=== PATIENT | male | born 1940 | race Caucasian/White ===

== ENCOUNTER 2024-05-24 12:46 | Outpatient (OUT) | payer MEDICARE, SELFPAY ==
--- NOTE | 2024-05-24 13:00 | CA_ITS ---
Patient Name: BELLE ONEIL MR#: [id number] : 1940 Exam Date: 05/24/2024 Ordering Doctor: MICAH BERRY ECHOCARDIOGRAM REPORT PROCEDURE: CA ECHO DOPPLER COMPLETE INDICATIONS: Aortic valve stenosis, hypertension COMPARISON: None. DESCRIPTION: COMPLETE ECHOCARDIOGRAM Real-time transthoracic echocardiography with 2D, M-mode, spectral and color flow Doppler performed. QUALITY: Technical quality was good. LEFT VENTRICLE: Normal chamber size. Mild to moderate concentric hypertrophy with proximal septal hypertrophy (sigmoid septum). Normal systolic function. LV EF: Normal left ventricular ejection fraction, (>55%). DIASTOLIC: Normal diastolic function. ATRIAL SEPTUM: Visually appears intact. LEFT ATRIUM: Mild dilatation. RIGHT ATRIUM: Normal chamber size. RIGHT VENTRICLE: Normal chamber size. Normal right ventricular systolic function. TRICUSPID VALVE: Normal mobility and thickness. No stenosis with trivial regurgitation. No evidence of pulmonary hypertension. RVSP 26 mmHg MITRAL VALVE: Normal mobility and thickness. No evidence of mitral valve stenosis. There is no mitral annular calcification. Mild mitral regurgitation. AORTIC VALVE: Normal trileaflet appearance. Mildly calcified aortic valve. Moderately diminished mobility. Doppler velocity suggests moderate aortic valve stenosis. Peak velocity 2.81 m/s, mean gradient 12 mmHg, DAVID 1.1 cm2. No aortic regurgitation. AORTIC ROOT: Aortic root is dilated (4.3 cm). The ascending aorta is mildly dilated measuring 3.8 cm. PULMONIC VALVE: Normal thickness and mobility. No stenosis. No regurgitation. PERICARDIUM: No evidence of pericardial effusion. IVC: Collapses with inspirations. PLEURA: CONCLUSION: 1. Mild to moderate concentric left ventricular hypertrophy with normal systolic function. LVEF is 55 to 60%. 2. Normal right ventricular size and systolic function. 3. Moderate aortic valve stenosis. 4. Mild mitral regurgitation. 5. Normal right-sided pressures. 6. Moderately dilated aortic root [4.3 cm] with mildly dilated ascending aorta [3.8 cm]. Adult Echocardiography Procedure Report Left Ventricle LVEDD (3.7 - 5.6 cm): 4.63 cm LVESD (2.2 - 4.0 cm): 3.38 cm LVIVS thickness (0.6 - 1.2 cm): 1.88 cm LVPW thickness (0.5 - 1.0 cm): 1.10 cm e': 0.11 m/s E - e': 7.00 LVOT Max Gradient: 1.39 mm[Hg] LVOT Area (cm2): 0.59 m/s Peak Velocity (LVOT): 0.59 m/s Mean Velocity (LVOT): 0.42 m/s LVOT Diameter 2.40 cm Left Atrium Left Atrium Systolic Dimension: 4.13 cm Mitral Valve MV E to A Ratio: 0.99 Mitral Valve A-Wave Peak Velocity: 0.76 m/s Mitral Valve E-Wave Peak Velocity: 0.76 m/s Right Ventricle Aorta AO Root Diam: 4.30 cm Ascending Ao Diam: 3.77 cm Aortic Valve AoV Area (Peak Freddy): 0.95 cm2, 1.19 cm2 AoV Area (VTI): 1.15 cm2, 1.50 cm2 Peak Velocity(Antegrade Flow): 2.23 m/s, 2.81 m/s Peak Gradient(Antegrade Flow): 19.94 mm[Hg], 31.53 mm[Hg] Mean Velocity(Antegrade Flow): 1.34 m/s, 1.42 m/s Mean Gradient(Antegrade Flow): 8.95 mm[Hg], 11.67 mm[Hg] Velocity Time Integral: 38.69 cm, 50.77 cm Tricuspid Valve Peak Velocity (Regurgitant Flow): 2.42 m/s Pulmonic Valve Mean Gradient: 1.83 mm[Hg] Mean Velocity: 0.61 m/s Peak Velocity: 0.98 m/s, 1.05 m/s Peak Gradient: 4.38 mm[Hg], 3.81 mm[Hg] Right Atrium Dictated by: Richard Stevens M.D. on 05/24/2024 at 19:27 Approved by: Richard Stevens M.D. on 05/24/2024 at 19:33
== END 2024-05-24 12:47 | disposition home or self-care (01) ==
LOC: CARD 12:49
PROVIDERS: PCP Internal Medicine; Visit Provider Nurse Practitioner
DX: I35.0 Nonrheumatic aortic (valve) stenosis (principal)
CPT/HCPCS: 93306

== ENCOUNTER 2024-12-27 07:42 | Outpatient (OUT) | payer MEDICARE, SELFPAY ==
--- OUTSIDE RECORDS SUMMARY | 2024-12-27 07:45 | XMS_ITS | CCD ---
Author Organization [facility] Care Team Providers Care Manager Metal Name Role Phone PHYSICIAN, DEFAULT Unavailable Unavailable PHYSICIAN, DEFAULT Unavailable Unavailable DO Devonte Lambert Attending Provider PAT FAROOQ Admitting Unavailable PAT FAROOQ Attending Unavailable JEWEL, DR SZYMANSKI Primary Care Unavailable PAT FAROOQ Consulting Unavailable JANETT, DR QUINONES Admitting Unavailable JANETT, DR QUINONES Attending Unavailable JEWEL, DR SZYMANSKI Primary Care Unavailable CESAR, DR CHICO Medina Consulting Unavailable JANETT, DR QUINONES Consulting Unavailable PAT FAROOQ Admitting Unavailable PAT FAROOQ Attending Unavailable JEWEL, DR SZYMANSKI Primary Care Unavailable PAT FAROOQ Consulting Unavailable DO Devonte Lambert Attending Provider [phone] NO FAMILY, PHYSICIAN Primary Care Provider Unava MD Liu Her Attending Provider [phone] FREEMNA Benito Primary Care Provider [phone] Mariza Imchalino Attending Unavailable Galindo Benito Primary Care Unavailable Liu Dawkins Admitting Unavailable Devonte Lambert Admitting Unavailable Devonte Lambert Attending Unavailable NO FAMILY, PHYSICIAN Primary Care Unavailable MICAH BERRY Attending Unavailable Galindo Benito MD Primary Care Provider [phone] Monie Prado MD Unavailable JUNE BACON Attending Unavailable Medications Current Medications Medication Drug Class(es) Dates Sig (Normalized) Sig (Original) Glucos Sul 9kya-Dke-Tpblt-C-M n (Glucosamine Chondroitin) 550-30-1 mg Capsule (1 source) Start: 02-07-2023 take 1 capsule by mouth once daily Glucos Sul 6yuh-Oju-Jumoh-C-M n (Glucosamine Chondroitin) 550-30-1 mg Capsule Active 1 CAP PO Daily February 07, 2023 12:00am glucosamine sulfate 500 mg oral capsule (3 sources) Glucosamine 500 MG capsule 1 (one) time each day at the same time. Active lisinopril 5 mg oral tablet (4 sources) Angiotensin Converting Enzyme Inhibitor Start: 05-15-2023 lisinopril 5 MG tablet Take 5 mg by mouth. 05/15/2023 Active Start: 02-07-2023 take 5 mg by mouth once daily Lisinopril Active 5 MG PO Daily February 07, 2023 12:00am Multivitamin (One A Day) Tablet (1 source) Start: 02-07-2023 take 1 tablet by mouth once daily Multivitamin (One A Day) Tablet Active 1 TAB PO Daily February 07, 2023 12:00am Problems Active Problems Problem Classification Problem Date Documented Da te Episodic/Chronic Anal and rectal conditions (1 source) Other specified diseases of anus and rectum; Translations: [Other specified diseases of anus and rectum] Onset: 12-14-2022 Episodic Aortic; peripheral; and visceral artery aneurysms (9 sources) Abdominal aortic aneurysm, without rupture; Translations: [Aneurysm of thoracic aorta] Onset: 05-18-2022 Chronic Calculus of urinary tract (5 sources) Uric acid urolithiasis; Translations: [Urinary calculus, unspecified] Onset: 07-24-2023 07-24-2023 Episodic Diabetes mellitus without complication (2 sources) Type 2 diabetes mellitus without complication; Translations: [Type 2 diabetes mellitus without complications] 12-04-2024 Chronic Disorders of lipid metabolism (11 sources) Hyperlipidemia, unspecified; Translations: [Hyperlipidemia] Onset: 11-15-2022 07-24-2023 Chronic Essential hypertension (8 sources) Essential (primary) hypertension; Translations: [Essential hypertension] Onset: 11-15-2022 Chronic Heart valve disorders (4 sources) Nonrheumatic aortic (valve) stenosis; Translations: [Nonrheumatic mitral (valve) insufficiency] Onset: 05-19-2022 Chronic Heart valve disorders (5 sources) Mid-systolic murmur; Translations: [Cardiac murmur, unspecified] Onset: 07-24-2023 07-24-2023 Episodic Hyperplasia of prostate (5 sources) Benign prostatic hypertrophy without outflow obstruction; Translations: [Benign prostatic hyperplasia without lower urinary tract symptoms] Onset: 07-24-2023 07-24-2023 Chronic Other and unspecified benign neoplasm (1 source) Personal history of colonic polyps; Translations: [Personal history of colonic polyps] Onset: 02-07-2023 Episodic Other and unspecified benign neoplasm (1 source) Benign neoplasm of transverse colon; Translations: [Benign neoplasm of transverse colon] Onset: 02-07-2023 Episodic Other screening for suspected conditions (not mental disorders or infectious disease) (2 sources) Patient encounter status; Translations: [Encounter for screening for malignant neoplasm of prostate] 12-04-2024 Episodic Unclassified (3 sources) THORAC AORTC ANEURYSM W/O RUPTR UNS; Translations: [THORAC AORTC ANEURYSM W/O RUPTR UNS] Onset: 12-15-2022 Unclassified (1 source) Aneurysm of the ascending aorta, without rupture; Translations: [Aneurysm of the ascending aorta, without rupture] Onset: 05-15-2023 Past or Other Problems Problem Classification Problem Date Documented Da te Episodic/Chronic Diabetes mellitus without complication (3 sources) Impaired glucose tolerance; Translations: [Impaired glucose tolerance (oral)] Onset: 07-24-2023 07-24-2023 Episodic Mood disorders (3 sources) Mood disorders Onset: 07-26-2023 07-26-2023 Unclassified (1 source) THORAC AORTC ANEURYSM W/O RUPTR UNS; Translations: [THORAC AORTC ANEURYSM W/O RUPTR UNS] Onset: 12-05-2022 Unclassified (1 source) Aneurysm of the ascending aorta, without rupture; Translations: [Aneurysm of the ascending aorta, without rupture] Onset: 06-19-2024 Results Test Name Value Interpretation Reference Range Facility ALBUMIN, RANDOM URINE W/CREA TININEon 12-05-2024 ALBUMIN, URINE 0.9 mg/dL Normal See Note: [facility] Comment on above: Result Comment: Refe rence Range: Reference Range Not established Performed By: #### 1 759, 496, 5363, 7600, 3717, 66174 #### [facility] [address], [address] [place] [id number] Air Conditioning Unit Assembler: Eugene Chandra MD ALBUMIN/CREATININE RATIO, RANDOM URINE 6 mg/g creat Normal <30 [facility] Comment on above: Result Comment: The ADA defines abnormalities in albumin excretion as follows: Albuminuria Category Result (mg/g creatinine) Normal to Mildly increased <30 Moderately increased 30-299 Severely increased > OR = 300 The ADA recommends that at least two of three specimens collected within a 3-6 month period be abnormal before considering a patient to be within a diagnostic category. Performed By: #### 1 759, 496, 5363, 7600, 6517, 95130 #### [facility] [place] [address] [employer] Condition[employer] Unit Assembler: Eugene Chandra MD Creatinine (U) [Mass/Vol] 153 mg/dL Normal 20-320 [facility] Comment on above: Performed By: #### 1 759, 496, 5363, 7600, 6517, 74345 #### [facility] [place] [address] [employer] Condition[employer] Unit Assembler: Eugene Chandra MD CBC (H/H, RBC, INDICES, WBC, PLT)on 12-05-2024 Erythrocyte distribution width (RBC) [Ratio] 12.1 % Normal 11.0-15.0 [facility] Comment on above: Performed By: #### 1 759, 496, 5363, 7600, 6517, 71181 #### [facility] [place] [address] [employer] Condition[employer] Unit Assembler: Eugene Chandra MD Hematocrit (Bld) [Volume fraction] 41.1 % Normal 38.5-50.0 [facility] Comment on above: Performed By: #### 1 759, 496, 5363, 7600, 6517, 84511 #### [facility] [place] [address] [employer] Conditioning Unit Assembler: Eugene Chandra MD Hemoglobin (Bld) [Mass/Vol] 13.9 g/dL Normal 13.2-17.1 [facility] Comment on above: Performed By: #### 1 759, 496, 5363, 7600, 6517, 40407 #### [facility] [place] [address] [employer] Conditioning Unit Assembler: Eugene Chandra MD MCH (RBC) [Entitic mass] 32.3 pg Normal 27.0-33.0 [facility] Comment on above: Performed By: #### 1 759, 496, 5363, 7600, 6517, 54318 #### [facility] [place] [address] [employer] Conditioning Unit Assembler: Eugene Chandra MD MCHC (RBC) [Mass/Vol] 33.8 g/dL Normal 32.0-36.0 [facility] Comment on above: Result Comment: For adults, a slight decrease in the calculated MCHC value (in the range of 30 to 32 g/dL) is most likely not clinically significant; however, it should be interpreted with caution in correlation with other red cell parameters and the patient's clinical condition. Performed By: #### 1 759, 496, 5363, 7600, 6517, 31819 #### [facility] [place] [address] [employer] Condition[employer] Unit Assembler: Eugene Chandra MD MCV (RBC) [Entitic vol] 95.4 fL Normal 80.0-100.0 [facility] Comment on above: Performed By: #### 1 759, 496, 5363, 7600, 6517, 30091 #### [facility] [place] [address] [employer] Conditioning Unit Assembler: Eugene Chandra MD Platelet mean volume (Bld) [Entitic vol] 10.4 fL Normal 7.5-12.5 [facility] Comment on above: Performed By: #### 1 759, 496, 5363, 7600, 6517, 54994 #### [facility] [place] [address] [employer] Conditioning Unit Assembler: Eugene Chandra MD Platelets (Bld) [#/Vol] 239 10*3/uL Normal 140-400 [facility] Comment on above: Performed By: #### 1 759, 496, 5363, 7600, 6517, 50807 #### [facility] [address] [place] [address] Air Conditioning Unit Assembler: Eugene Chandra MD RBC (Bld) [#/Vol] 4.31 10*6/uL Normal 4.20-5.80 [facility] Comment on above: Performed By: #### 1 759, 496, 5363, 7600, 6517, 82510 #### [facility] of [place] [address] [employer] Conditioning Unit Assembler: Eugene Chandra MD WBC (Bld) [#/Vol] 8.1 10*3/uL Normal 3.8-10.8 [facility] Comment on above: Performed By: #### 1 759, 496, 5363, 7600, 6517, 33074 #### [facility] of [place] [address] [employer] Conditioning Unit Assembler: Eugene Chandra MD [facility]AB[facility] 12-05-2024 Albumin [Mass/Vol] 4.3 g/dL Normal 3.6-5.1 [facility] Comment on above: Performed By: #### 1 759, 496, 5363, 7600, 6517, 98760 #### [facility] of [place] [address] [employer] Conditioning Unit Assembler: Eugene Chandra MD Albumin/Globulin [Mass ratio] 1.8 {ratio} Normal 1.0-2.5 [facility] Comment on above: Performed By: #### 1 759, 496, 5363, 7600, 6517, 64470 #### [facility] of [place] [address] Air Conditioning Unit Assembler: Eugene Chnadra MD ALP [Catalytic activity/Vol] 51 U/L Normal 35-144 [facility] Comment on above: Performed By: #### 1 759, 496, 5363, 7600, 6517, 90040 #### [facility] of [place] [address] [employer] Conditioning Unit Assembler: Eugene Chandra MD ALT [Catalytic activity/Vol] 23 U/L Normal 9-46 [facility] Comment on above: Performed By: #### 1 759, 496, 5363, 7600, 6517, 45419 #### [facility] of [address], [address] [place] [address] Air Conditioning Unit Assembler: Eugene Chandra MD AST [Catalytic activity/Vol] 20 U/L Normal 10-35 [facility] Comment on above: Performed By: #### 1 759, 496, 5363, 7600, 6517, 04993 #### [facility] of [address], [address] [place] [address] Air Conditioning Unit Assembler: Eugene Chandra MD Bilirubin [Mass/Vol] 0.6 mg/dL Normal 0.2-1.2 [facility] Comment on above: Performed By: #### 1 759, 496, 5363, 7600, 6517, 85093 #### [facility] of [address], [address] [place] [address] Air Conditioning Unit Assembler: Eugene Chandra MD BUN/CREATININE RATIO SEE NOTE: Normal 6-22 [facility] Comment on above: Result Comment: Not Reported: BUN and Creatinine are within reference range. Performed By: #### 1 759, 496, 5363, 7600, 6517, 17133 #### [facility] of [address], [address] [place] [address] Air Conditioning Unit Assembler: Eugene Chandra MD Calcium [Mass/Vol] 9.3 mg/dL Normal 8.6-10.3 [facility] Comment on above: Performed By: #### 1 759, 496, 5363, 7600, 6517, 49372 #### [facility] of [place] [address] Air Conditioning Unit Assembler: Eugene Chandra MD Chloride [Moles/Vol] 106 mmol/L Normal 98-110 [facility] Comment on above: Performed By: #### 1 759, 496, 5363, 7600, 6517, 64780 #### [facility] of [address], [address] [place] [address] Air Conditioning Unit Assembler: Eugene Chandra MD CO2 [Moles/Vol] 27 mmol/L Normal 20-32 [facility] Comment on above: Performed By: #### 1 759, 496, 5363, 7600, 6517, 50334 #### [facility] [address], [address] [place] [address] Air Conditioning Unit Assembler: Eugene Chandra MD Creatinine [Mass/Vol] 0.92 mg/dL Normal 0.70-1.22 [facility] Comment on above: Performed By: #### 1 759, 496, 5363, 7600, 6517, 96608 #### [facility] [place] [address] Air Conditioning Unit Assembler: Eugene Chandra MD GFR/1.73 sq M.predicted among non-blacks MDRD (S/P/Bld) [Vol rate/Area] 83 mL/min/{1.73_m2} Normal > OR = 60 [facility] Comment on above: Performed By: #### 1 759, 496, 5363, 7600, 6517, 50140 #### [facility] [place] [address] Air Conditioning Unit Assembler: Eugene Chandra MD Globulin (S) [Mass/Vol] 2.4 g/dL Normal 1.9-3.7 [facility] Comment on above: Performed By: #### 1 759, 496, 5363, 7600, 6517, 05975 #### [facility] [place] [address] [employer] Conditioning Unit Assembler: Eugene Chandra MD Glucose [Mass/Vol] 134 mg/dL High 65-99 [facility] Comment on above: Result Comment: Fasting reference interval For someone without known diabetes, a glucose value >125 mg/dL indicates that they may have diabetes and this should be confirmed with a follow-up test. Performed By: #### 1 759, 496, 5363, 7600, 6517, 96969 #### [facility] [place] [address] Air Conditioning Unit Assembler: Eugene Chandra MD Potassium [Moles/Vol] 4.3 mmol/L Normal 3.5-5.3 [facility] Comment on above: Performed By: #### 1 759, 496, 5363, 7600, 6517, 35502 #### [facility] [address], [address] [place] [address] Air Conditioning Unit Assembler: Eugene Chandra MD Protein [Mass/Vol] 6.7 g/dL Normal 6.1-8.1 [facility] Comment on above: Performed By: #### 1 759, 496, 5363, 7600, 6517, 37489 #### [facility] [place] [address] Air Conditioning Unit Assembler: Eugene Chandra MD Sodium [Moles/Vol] 140 mmol/L Normal 135-146 [facility] Comment on above: Performed By: #### 1 759, 496, 5363, 7600, 6517, 31540 #### [facility] [place] [address] Air Conditioning Unit Assembler: Eugene Chandra MD Urea nitrogen [Mass/Vol] 17 mg/dL Normal 7-25 [facility] Comment on above: Performed By: #### 1 759, 496, 5363, 7600, 6517, 79685 #### [facility] [place] [address] Air Conditioning Unit Assembler: Eugene Chandra MD HEMOGLOBIN A1con 12-05-2024 HEMOGLOBIN A1c 6.7 % of total Hgb High <5.7 [facility] Comment on above: Result Comment: For someone without known diabetes, a hemoglobin A1c value of 6.5% or greater indicates that they may have diabetes and this should be confirmed with a follow-up test. For someone with known diabetes, a value <7% indicates that their diabetes is well controlled and a value greater than or equal to 7% indicates suboptimal control. A1c targets should be individualized based on duration of diabetes, age, comorbid conditions, and other considerations. Currently, no consensus exists regarding use of hemoglobin A1c for diagnosis of diabetes for children. Performed By: #### 1 759, 496, 5363, 7600, 6517, 50124 #### [facility] [address], [address] [place] [address] Air Conditioning Unit Assembler: Eugene Chandra MD LIPID PANEL, [facility] 11-10 Cholesterol [Mass/Vol] 201 mg/dL High <200 [facility] Comment on above: Order Comment: FASTI NG:YES FASTING: YES Performed By: #### 1 759, 496, 5363, 7600, 6517, 97793 #### [facility] [address], [address] [place] [address] Air Conditioning Unit Assembler: Eugene Chandra MD Cholesterol in HDL [Mass/Vol] 43 mg/dL Normal > OR = 40 [facility] Comment on above: Order Comment: FASTI NG:YES FASTING: YES Performed By: #### 1 759, 496, 5363, 7600, 6517, 08011 #### [facility] [address], [address] [place] [address] Air Conditioning Unit Assembler: Eugene Chandra MD Cholesterol in LDL [Mass/Vol] 134 mg/dL High [facility] Comment on above: Order Comment: FASTI NG:YES FASTING: YES Result Comment: Refe rence range: <100 Desirable range <100 mg/dL for primary prevention; <70 mg/dL for patients with CHD or diabetic patients with > or = 2 CHD risk factors. LDL-C is now calculated using the Keanu calculation, which is a validated novel method providing better accuracy than the Friedewald equation in the estimation of LDL-C. Baltazar TORO et al. TUNG. 2013;310(19): 2398-0577 (http://education.[employer]ód[employer].Soundvamp/faq/ULE680) Performed By: #### 1 759, 496, 5363, 7600, 6517, 77527 #### [facility] [address], [address] [place] [address] Air Conditioning Unit Assembler: Eugene Chandra MD Cholesterol.total/ Cholesterol in HDL [Mass ratio] 4.7 {ratio} Normal <5.0 [facility] Comment on above: Order Comment: FASTI NG:YES FASTING: YES Performed By: #### 1 759, 496, 5363, 7600, 6517, 07436 #### [facility] [address], [address] [place] [address] Air Conditioning Unit Assembler: Eugene Chandra MD NON HDL CHOLESTEROL 158 mg/dL (calc) High <130 [facility] Comment on above: Order Comment: FASTI NG:YES FASTING: YES Result Comment: For patients with diabetes plus 1 major ASCVD risk factor, treating to a non-HDL-C goal of <100 mg/dL (LDL-C of <70 mg/dL) is considered a therapeutic option. Performed By: #### 1 759, 496, 5363, 7600, 6517, 30592 #### [facility] [address], [address] [place] [address] Air Conditioning Unit Assembler: Eugene Chandra MD Triglyceride [Mass/Vol] 128 mg/dL Normal <150 [facility] Comment on above: Order Comment: FASTI NG:YES FASTING: YES Performed By: #### 1 759, 496, 5363, 7600, 6517, 44189 #### [facility] [address], [address] [place] [address] Air Conditioning Unit Assembler: Eugene Chandra MD PSA, TOTALon 12-05-2024 PSA, TOTAL 0.61 ng/mL Normal < OR = 4.00 [facility] Comment on above: Result Comment: The total PSA value from this assay system is standardized against the WHO standard. The test result will be approximately 20% lower when compared to the equimolar-standardized total PSA ([facility] [place]). Comparison of serial PSA results should be interpreted with this fact in mind. This test was performed using the Siemens chemiluminescent method. Values obtained from different assay methods cannot be used interchangeably. PSA levels, regardless of value, should not be interpreted as absolute evidence of the presence or absence of disease. Performed By: #### 1 759, 496, 5363, 7600, 6517, 42360 #### [facility] [place] [address] Air Conditioning Unit Assembler: Eugene Chandra MD Office Visiton 06-19-2024 Follow-up visit [id number] Cameron Locke 1940 M Date Provider Department Center 06/19/2024 MICAH LOWE INEZ Vuong Family History Problem Relation Age of Onset Kidney disease Mother Hyperlipidemia Father Aneurysm Father Coronary artery disease Sister Coronary artery disease Brother Family Status - Relation Status Age at Mother Father Sister Brother Level of Service:06889 AR OFFICE/OUTPATIENT ESTABLISHED LOW MDM 20 MIN Normal [facility] Messi 02-07-2023 L --- Specimen: [id number] Received: 02/07/23 Status: JOE Chan Num: [id number] Spec Type: Surgical Subm Dr: Liu Dawkins MD Tissues: A Small Intestine - Biopsy/Polyp (HEPATIC FLEXURE POLYP) Procedures: MANNY/Todd Wilhelm/Prasanth L4 Age/ Patient Sex Location Account Attending Physician Giuseppe Locke 82/M [id number] Liu Dawkins MD SPEC NUM: [id number] RECD: 02/07/23 STATUS: JOE CHAN NUM: [id number] DAMION: 02/07/23 DR: Liu Dawkins MD ENTERED: 02/07/[address] [facility] [address]: NENITA TYPE: Surgical DEPT: S ORDERED: HE/2, Gross/Micro L4 ORDERED: HE/2, Gross/Micro L4 Pathological Diagnosis Colon, hepatic flexure, polyp, biopsy: - Tubular adenoma. - Fragments of sessile serrated adenoma. Clinical Information Hepatic flexure polyp Gross Description Received in formalin labeled with the patient's name, number and hepatic flexure polyp are multiple fragments of soft morin tissue and fecal material measuring 2.0 x 0.7 x 0.2 cm in aggregate. Entirely submitted in one cassette labeled A1. Microscopic Description Two glass slides with H E stained material have been examined. The microscopic findings support the above pathologic diagnosis. CPT Codes 42650 Specimen: [id number] Received: 02/07/23 Status: JOE Rocio Num: [id number] Spec Type: Surgical Subm Dr: Liu Dawkins MD Tissues: A Small Intestine - Biopsy/Polyp (HEPATIC FLEXURE POLYP) Procedures: MANNY/Melonie Gross/Micro L4 Patient: Giuseppe Locke [id number] (Continued) Signed (signature on file) Joleen Dorsey MD 02/08/23 1029 [facility] Messi 12-14-2022 L --- Specimen: [id number] Received: 12/14/22-125 Status: JOE Chan Num: [id number] Spec Type: Surgical Subm Dr: Devonte Lambert DO Tissues: A Small Intestine - Biopsy/Polyp (POLYP HEPATIC FLEXURE) Procedures: Melonie Gross/Micro L4 Age/ Patient Sex Location Account Attending Physician Giuseppe Locke/[facility] [id number] Devonte Lambert DO SPEC NUM: [id number] RECD: 12/14/22 STATUS: JOE CHAN NUM: [id number] DAMION: 12/14/22- [facility] DR: Devonte Lambert DO ENTERED: 12/14/[address]: Markel [facility] SPEC TYPE: Surgical DEPT: S ORDERED: HE/2, Gross/Micro L4 ORDERED: HE/2, Gross/Micro L4 Pathological Diagnosis Colon, hepatic flexure, polyp, polypectomy: - Hyperplastic polyp. Clinical Information Rectal pain Gross Description Received in formalin labeled with the patient's name, number and polyp hepatic flexure are two fragments of soft morin tissue averaging 0.3 cm. Entirely submitted in one cassette labeled A1. Microscopic Description Two glass slides with H E stained material have been examined. The microscopic findings support the above pathologic diagnosis. CPT Codes 56477 Specimen: [id number] Received: 12/14/22 Status: JOE Rocio Num: [id number] Spec Type: Surgical Subm Dr: Devonte Lambert DO Tissues: A Small Intestine - Biopsy/Polyp (POLYP HEPATIC FLEXURE) Procedures: MANNY/Todd Wilhelm/Prasanth L4 Patient: Giuseppe Locke [id number] (Continued) Signed (signature on file) Joaquim Brooks MD 12/19/22916 [facility] ECHOCARDIO M/2D COMPLETEon 0 12-05-2022 ECHOCARDIO M/2D COMPLETE Patient: GIUSEPPE LOCKE Exam Date: 12/05/2022 : 1940 Gender:M Ordering : PAT FAROOQ [facility] Admission #: [id number] Family : Order #: [id number] CLICK HERE TO VIEW EXAM ECHOCARDIOGRAM REPORT PROCEDURE: CARDIO PULMONARY ECHOCARDIO M/2D COMP INDICATIONS: Thoracic aortic aneurym without rupture COMPARISON: None. DESCRIPTION: COMPLETE ECHOCARDIOGRAM Real-time transthoracic echocardiography with 2D, M-mode, spectral and color flow Doppler performed. QUALITY: Technical quality was good. LEFT VENTRICLE: Normal chamber size. Moderate concentric left ventricular hypertrophy. Global left ventricular systolic function is normal. LV EF: Calculated left ventricular ejection fraction is 62% DIASTOLIC: ATRIAL SEPTUM: LEFT ATRIUM: Mild dilatation. RIGHT ATRIUM: Normal chamber size. RIGHT VENTRICLE: Normal chamber size. Normal right ventricular systolic function. TRICUSPID VALVE: Normal mobility and thickness. No stenosis with trivial regurgitation. No evidence of pulmonary hypertension. RVSP is 25 mmHg. MITRAL VALVE: Normal mobility and thickness. No mitral valve prolapse. No evidence of mitral valve stenosis. There is no mitral annular calcification. Mild mitral regurgitation. AORTIC VALVE: Normal trileaflet appearance. Mildly calcified aortic valve. Mildly diminished mobility. Doppler velocity suggests mild aortic valve stenosis. DVI 0.4, DAVID 1.4 cm2, mean gradient 8 mmHg. Trivial aortic regurgitation. AORTIC ROOT: The aortic root is moderate dilated and measures 4.2 cm, the ascending aorta is mildly dilated and measures 4.0 cm, the aortic arch measures 3.2 cm. PULMONIC VALVE: Normal thickness and mobility. No stenosis. Trivial regurgitation. PERICARDIUM: No evidence of pericardial effusion. IVC: Collapses with inspirations. Normal size. PLEURA: CONCLUSION: 1. Moderate concentric left regular hypertrophy with normal global systolic function. LVEF is 60 to 65%. 2. Normal right ventricular size and systolic function. 3. Mild aortic valve stenosis. 4. Normal right-sided pressures. 5. Moderately dilated aortic root measuring 4.2 cm. The ascending aorta is mildly dilated measuring 4.0 cm. Adult Echocardiography Procedure Report Left Ventricle LVEDD (3.7 - 5.6 cm): 4.90 cm LVESD (2.2 - 4.0 cm): 3.54 cm LVIVS thickness (0.6 - 1.2 cm): 1.50 cm LVPW thickness (0.5 - 1.0 cm): 1.37 cm e': 0.09 m/s E - e': 8.21 LVOT Max Gradient: 1.96 mm[Hg], 2.15 mm[Hg] Peak Velocity (LVOT): 0.70 m/s, 0.73 m/s Mean Velocity (LVOT): 0.50 m/s, 0.59 m/s LVOT Diameter 2.19 cm Left Ventricular Ejection Fraction: 60-65% Left Atrium LA Volume Index (2D A2C): 70.73 ml, 70.73 ml Left Atrium Systolic Dimension: 4.30 cm Mitral Valve MV E to A Ratio: 1.07 Mitral Valve A-Wave Peak Velocity: 0.67 m/s Mitral Valve E-Wave Peak Velocity: 0.72 m/s Right Ventricle RV Internal Diastolic Dimension: 4.00 cm Aorta AO Root Diam: 4.19 cm, 4.20 cm Ascending Ao Diam: 3.96 cm Aortic Valve AoV Area (Peak Freddy): 1.35 cm2, 1.32 cm2 AoV Area (VTI): 1.45 cm2, 1.43 cm2 Peak Velocity(Antegrade Flow): 2.00 m/s Peak Gradient(Antegrade Flow): 15.94 mm[Hg] Mean Velocity(Antegrade Flow): 1.36 m/s Mean Gradient(Antegrade Flow): 8.44 mm[Hg] Velocity Time Integral: 38.80 cm Tricuspid Valve Peak Velocity (Regurgitant Flow): 2.35 m/s, 2.11 m/s, 2.19 m/s Peak Velocity: 0.70 m/s Pulmonic Valve Mean Gradient: 2.11 mm[Hg], 2.45 mm[Hg] Mean Velocity: 0.67 m/s, 0.72 m/s Peak Velocity: 1.02 m/s, 1.09 m/s Peak Gradient: 4.13 mm[Hg], 4.74 mm[Hg] Right Atrium Dictated by: Joni Rowland M.D. on 12/15/2022 at 09:00 Approved by: Joni Rowland M.D. on 12/15/2022 at 09:08 [facility] CBC AUTO DIFFon 11-08-2022 BASO # 0.1 103/ul Normal 0.0-0.1 [facility] Comment on above: Performed By: #### C BC #### [facility] [address] [place] [address] Dr. Carlton Mendez Basophils/100 WBC (Bld) 0.9 % Normal 0.2-2.0 [facility] Comment on above: Performed By: #### C BC #### [facility] [address] [place] [address] Dr. Carlton Mendez EO # 0.7 103/ul Normal 0.0-0.7 [facility] Comment on above: Performed By: #### C BC #### [facility] [address] [place] [address] Dr. Carlton Mendez Eosinophils/100 WBC (Bld) 7.3 % Critically high 0.9-7.0 [facility] Comment on above: Performed By: #### C BC #### [facility] [address] [place] [address] Dr. Carlton Mendez Erythrocyte distribution width (RBC) [Ratio] 12.7 % Normal 11.0-15.0 [facility] Comment on above: Performed By: #### C BC #### [facility] [address] [place] [address] Dr. Carlton Mendez Hematocrit (Bld) [Volume fraction] 41.2 % Critically low 42.0-54.0 [facility] Comment on above: Performed By: #### C BC #### [facility] [address] [place] [address] Dr. Carlton Mendez Hemoglobin (Bld) [Mass/Vol] 13.9 g/dL Critically low 14.0-18.0 [facility] Comment on above: Performed By: #### C BC #### [facility] [address] [place] [address] Dr. Carlton Mendez IG # 0.05 10e3/ul Critically high 0.00-0.03 [facility] Comment on above: Performed By: #### C BC #### [facility] [address] [place] [address] Dr. Carlton Mendez IG % 0.5 % Normal 0.0-0.5 [facility] Comment on above: Performed By: #### C BC #### [facility] [address] [place] [address] Dr. Carlton Mendez LYMPH # 4.9 103/ul Critically high 1.2-3.8 [facility] Comment on above: Performed By: #### C BC #### [facility] [address] [place] [address] Dr. Carlton Mendez Lymphocytes/100 WBC (Bld) 49.8 % Normal 20.5-60.0 [facility] Comment on above: Performed By: #### C BC #### [facility] [address] [place] [address] Dr. Carlton Mendez MANUAL DIFF REQ NO Normal [facility] Comment on above: Performed By: #### C BC #### [facility] [address] [place] [address] Dr. Carlton Mendez MCH (RBC) [Entitic mass] 31.8 pg Normal 25.9-34.0 [facility] Comment on above: Performed By: #### C BC #### [facility] [address] [place] [address] Dr. Carlton Mendez MCHC (RBC) [Mass/Vol] 33.7 g/dL Normal 29.9-35.2 [facility] Comment on above: Performed By: #### C BC #### [facility] [address] [place] [address] Dr. Carlton Mendez MCV (RBC) [Entitic vol] 94.3 fL Critically high 80.0-94.0 [facility] Comment on above: Performed By: #### C BC #### [facility] [address] [place] [address] Dr. Carlton Mendez MONO # 0.9 103/ul Critically high 0.3-0.8 [facility] Comment on above: Performed By: #### C BC #### [facility] [address] [place] [address] Dr. Carlton Mendez Monocytes/100 WBC (Bld) 8.8 % Normal 1.7-12.0 [facility] Comment on above: Performed By: #### C BC #### [facility] [address] [place] [address] Dr. Carlton Mendez NEUT # 3.2 103/ul Normal 1.4-6.5 [facility] Comment on above: Performed By: #### C BC #### [facility] [address] [place] [address] Dr. Carlton Mendez Neutrophils/100 WBC (Bld) 32.7 % Critically low 43.0-75.0 [facility] Comment on above: Performed By: #### C BC #### [facility] [address] [place] [address] Dr. Carlton Mendez Platelet mean volume (Bld) [Entitic vol] 9.5 fL Normal 9.5-13.5 [facility] Comment on above: Performed By: #### C BC #### [facility] [address] [place] [address] Dr. Carlton Mendez PLT 233 103/ul Normal 150-450 [facility] Comment on above: Performed By: #### C BC #### [facility] [address] [place] [address] Dr. Carlton Mendez RBC 4.37 106/ul Critically low 4.70-6.10 [facility] Comment on above: Performed By: #### C BC #### [facility] [address] [place] [address] Dr. Carlton Mendez WBC 9.9 103/ul Normal 4.0-11.0 [facility] Comment on above: Performed By: #### C BC #### [facility] [address] [place] [address] Dr. Carlton Mendez LIPID PROFILEon 11-08-2022 CHOL-HDL RATIO NORM SEE BELOW Normal [facility] Comment on above: Result Comment: 3.3 - 4.4 LOW RISK 4.4 - 7.1 AVERAGE RISK 7.1 - 11.0 MODERATE RISK >11.0 HIGH RISK Performed By: #### C MP, LIPID #### [facility] [address] [address] [address] Carlton Mendez Cholesterol [Mass/Vol] 175 mg/dL Normal <=200 [facility] Comment on above: Performed By: #### C MP, LIPID #### [facility] [address] [address] [address] Carlton Mendez Cholesterol in HDL [Mass/Vol] 36 mg/dL Critically low 40-60 [facility] Comment on above: Performed By: #### C MP, LIPID #### [facility] [address] [address] [address] Carlton Mendez Cholesterol in LDL [Mass/Vol] 111.8 mg/dL Normal [facility] Comment on above: Performed By: #### C MP, LIPID #### [facility] [address] [address] [address] Carlton Mendez Cholesterol.total/ Cholesterol in HDL [Mass ratio] 4.9 {ratio} Normal [facility] Comment on above: Performed By: #### C MP, LIPID #### [facility] [address] [place] [address] Dr. Carlton Mendez HDL NORMAL > or = 60 mg/dl - LO W CARDIOVASCULAR RISK <40 mg/dl - HIGH CARDIOVASCULAR RISK Normal [facility] Comment on above: Performed By: #### C MP, LIPID #### [facility] [address] [address] [address] Carlton Mendez LDL CALC NORMAL SEE BELOW Normal [facility] Comment on above: Result Comment: <100 mg/dl OPTIMAL 100 - 129 mg/dl NEAR OR ABOVE OPTIMAL 130 - 159 mg/dl BORDERLINE HIGH 160 - 189 mg/dl HIGH >190 mg/dl VERY HIGH Performed By: #### C MP, LIPID #### [facility] [address] [address] [address] Carlton Mendez Triglyceride [Mass/Vol] 136 mg/dL Normal <=150 [facility] Comment on above: Performed By: #### C MP, LIPID #### [facility] [address] [address] [address] Carlton Mendez VLDL CALC 27.2 mg/dL Normal [facility] Comment on above: Performed By: #### C MP, LIPID #### [facility] [address] [address] [address] Carlton Mendez PROF 14(COMP METB)on 023 Albumin [Mass/Vol] 3.6 g/dL Normal 3.4-5.[address] [facility] Comment on above: Performed By: #### C MP, LIPID #### [facility] [address] [address] [address] Carlton Mendez Albumin/Globulin [Mass ratio] 0.9 {ratio} Normal [facility] Comment on above: Performed By: #### C MP, LIPID #### [facility] [address] [place] [address] Dr. Carlton Mendez ALP [Catalytic activity/Vol] 59 U/L Normal 46-116 [facility] Comment on above: Performed By: #### C MP, LIPID #### [facility] [address] [place] [address] Dr. Carlton Mendez ALT [Catalytic activity/Vol] 34 U/L Normal 16-63 [facility] Comment on above: Performed By: #### C MP, LIPID #### [facility] [address] [place] [address] Dr. Carlton Mendez Anion gap [Moles/Vol] 11.6 mmol/L Normal [facility] Comment on above: Performed By: #### C MP, LIPID #### [facility] [address] [place] [address] Dr. Carlton Mendez AST [Catalytic activity/Vol] 24 U/L Normal 15-37 [facility] Comment on above: Performed By: #### C MP, LIPID #### [facility] [address] [place] [address] Dr. Carlton Mendez Bilirubin [Mass/Vol] 0.4 mg/dL Normal 0.2-1.0 [facility] Comment on above: Performed By: #### C MP, LIPID #### [facility] [address] [place] [address] Dr. Carlton Mendez Calcium [Mass/Vol] 8.9 mg/dL Normal 8.5-10.[address] [facility] Comment on above: Performed By: #### C MP, LIPID #### [facility] [address] [address] [address] Carlton Mendez Chloride [Moles/Vol] 104 mmol/L Normal 98-107 [facility] Comment on above: Performed By: #### C MP, LIPID #### [facility] [address] [address] [address] Carlton Mendez CO2 [Moles/Vol] 29.6 mmol/L Normal 21.0-32.0 [facility] Comment on above: Performed By: #### C MP, LIPID #### [facility] [address] [address] [address] Carlton Mendez Creatinine [Mass/Vol] 0.95 mg/dL Normal 0.70-1.30 [facility] Comment on above: Performed By: #### C MP, LIPID #### [facility] [address] [place] [address] Dr. Carlton Mendez EGFR-AF ITALIAN >60 Normal >=60 [facility] Comment on above: Performed By: #### C MP, LIPID #### [facility] [address] [address] [address] Carlton Mendez EGFR-NON AF ITALIAN >60 Normal >=60 [facility] Comment on above: Performed By: #### C MP, LIPID #### [facility] [address] [address] [address] Carlton Mendez Globulin (S) [Mass/Vol] 4.0 g/dL Normal [facility] Comment on above: Performed By: #### C MP, LIPID #### [facility] [address] [address] [address] Carlton Mendez Glucose [Mass/Vol] 146 mg/dL Critically high 74-106 [facility] Comment on above: Performed By: #### C MP, LIPID #### [facility] [address] [address] [address] Carlton Mendez Potassium [Moles/Vol] 4.2 mmol/L Normal 3.5-5.1 [facility] Comment on above: Performed By: #### C MP, LIPID #### [facility] [address] [address] [address] Carlton Mendez Protein [Mass/Vol] 7.6 g/dL Normal 6.4-8.[address] [facility] Comment on above: Performed By: #### C MP, LIPID #### [facility] [address] [address] [address] Carlton Mendez Sodium [Moles/Vol] 141 mmol/L Normal 136-[address] [facility] Comment on above: Performed By: #### C MP, LIPID #### [facility] [address] [address] [address] Carlton Mendez Urea nitrogen [Mass/Vol] 19.0 mg/dL Critically high 7.0-18.0 [facility] Comment on above: Performed By: #### C MP, LIPID #### [facility] [address] [address] [address] Carlton Mendez Urea nitrogen/Creatinin e [Mass ratio] 20.0 mg/mg Normal [facility] Comment on above: Performed By: #### C MP, LIPID #### [facility] [address] [address] [address] Carlton Mendez ECHOCARDIO M/2D COMPLETEon 0 05-18-2022 ECHOCARDIO M/2D COMPLETE Patient: GIUSEPPE LOCKE Exam Date: 05/18/2022 : 1940 Gender:M Ordering : DR JONI ROWLAND M.D. Admission #: [id number] Family : DR GALINDO BENITO M.D. Order #: [id number] CLICK HERE TO VIEW EXAM ECHOCARDIOGRAM REPORT PROCEDURE: CARDIO PULMONARY ECHOCARDIO M/2D COMP INDICATIONS: Mitral valve regurgitation, Aortic enlargement COMPARISON: None. DESCRIPTION: COMPLETE ECHOCARDIOGRAM Real-time transthoracic echocardiography with 2D, M-mode, spectral and color flow Doppler performed. QUALITY: Technical quality was adequate. 65# 175 148/90 HR 62 LEFT VENTRICLE: Normal chamber size. Mild concentric left ventricular hypertrophy. Global left ventricular systolic function is normal. No regional wall motion abnormality. LV EF: Visual estimation of left ventricular ejection fraction is 65%. DIASTOLIC: Normal diastolic function. ATRIAL SEPTUM: LEFT ATRIUM: Normal chamber size. RIGHT ATRIUM: Normal chamber size. RIGHT VENTRICLE: Mild dilatation. Normal right ventricular systolic function. TRICUSPID VALVE: Normal mobility and thickness. No stenosis with trivial regurgitation. No evidence of pulmonary hypertension. RVSP 22 mmHg MITRAL VALVE: Normal mobility and thickness. Mild posterior mitral valve prolapse with mild anteriorly directed regurgitation. AORTIC VALVE: Normal trileaflet appearance. Moderately calcified aortic valve. Doppler velocity suggest mild aortic valve stenosis. Peak velocity 2 m/s, mean gradient 9 mmHg. DAVID 1.7 cm?. Trivial aortic regurgitation. AORTIC ROOT: The aortic sinuses measure 4.65 cm, ascending aorta 4.0 cm and aortic arch 3.5 cm. (echo 03/13/2018 sinuses 4.66 cm, ascending 3.96 cm) PULMONIC VALVE : Normal thickness and mobility. No stenosis. Trivial regurgitation. PERICARDIUM: No evidence of pericardial effusion. IVC: Collapses with inspirations. IVC is normal in size. PLEURA: CONCLUSION: 1. Mild concentric left ventricular hypertrophy with normal systolic function. LVEF is 65%. 2. Normal right ventricular systolic function. 3. Mild posterior mitral valve leaflet prolapse with mild regurgitation. 4. Mild aortic valve stenosis. 5. Normal right-sided pressures. 6. Moderately dilated aortic root measuring 4.65 cm. 7. Mildly to moderately dilated ascending aorta measuring 4.0 cm. 8. No pericardial effusion. Adult Echocardiography Procedure Report Left Ventricle Left Atrium Mitral Valve Right Ventricle Aorta Aortic Valve Peak Velocity (Antegrade Flow): 1.96 m/s, 1.90 m/s, 1.96 m/s AoV Area (Peak Freddy): 1.70 cm2, 1.70 cm2, 1.70 cm2, 1.70 cm2 AoV Area (VTI): 1.73 cm2, 1.73 cm2 Peak Velocity(Antegrade Flow): 1.96 m/s, 1.96 m/s Peak Gradient(Antegrade Flow): 15.36 mm[Hg], 15.36 mm[Hg] Mean Velocity(Antegrade Flow): 1.40 m/s Mean Gradient(Antegrade Flow): 8.77 mm[Hg] Velocity Time Integral: 41.55 cm Tricuspid Valve Peak Velocity (Regurgitant Flow): 2.15 m/s Peak Velocity: 0.54 m/s Pulmonic Valve PV Max Freddy (0.6 - 0.9 m per sec): 1.11 m/s PV Max Gradient: 4.96 mm[Hg] Right Atrium Dictated by: Joni Rowland M.D. on 05/18/2022 at 19:34 Approved by: Joni Rowland M.D. on 05/18/2022 at 19:45 Normal [facility] US ABD AORTA DIAGNOSTICon US ABD AORTA DIAGNOSTIC EXAMINATION: US ABD AORTA DIAGNOSTIC HISTORY: Abdominal aortic aneurysm without rupture COMPARISON: No relevant comparison available. TECHNIQUE: Ultrasound examination of the retroperitoneal area was performed, with a focused evaluation of the abdominal aorta. FINDINGS: Proximal aorta: 3.0 x 2.7 cm Mid aorta: 2.3 x 2.6 cm Distal aorta: 2.1 x 2.5 cm Right common iliac artery: 1.3 x 1.4 cm Left common iliac artery: 1.4 x 1.4 cm Mild diffuse atherosclerotic plaque IMPRESSION: No abdominal aortic aneurysm identified Electronically authenticated by: CHICO GUERRERO Date: 2022-05-18 16:07 Normal [facility] Ambulatory Clinical Summaryo n 08-16-2021 Ambulatory Clinical Summary {[id number] Normal [facility] Patient Educationon 08-16-20 Patient Education Urology Benign Prostatic Hyperplasia Benign prostatic hyperplasia (BPH) is an enlarged prostate gland that is caused by the normal aging process and not by cancer. The prostate is a walnut-sized gland that is involved in the production of semen. It is located in front of the rectum and below the bladder. The bladder stores urine and the urethra is the tube that carries the urine out of the body. The prostate may get bigger as a man gets older. An enlarged prostate can press on the urethra. This can make it harder to pass urine. The build-up of urine in the bladder can cause infection. Back pressure and infection may progress to bladder damage and kidney (renal) failure. What are the causes? This condition is part of a normal aging process. However, not all men develop problems from this condition. If the prostate enlarges away from the urethra, urine flow will not be blocked. If it enlarges toward the urethra and compresses it, there will be problems passing urine. What increases the risk? This condition is more likely to develop in men over the age of 50 years. What are the signs or symptoms? Symptoms of this condition include: ? Getting up often during the night to urinate. ? Needing to urinate frequently during the day. ? Difficulty starting urine flow. ? Decrease in size and strength of your urine stream. ? Leaking (dribbling) after urinating. ? Inability to pass urine. This needs immediate treatment. ? Inability to completely empty your bladder. ? Pain when you pass urine. This is more common if there is also an infection. ? Urinary tract infection (UTI). How is this diagnosed? This condition is diagnosed based on your medical history, a physical exam, and your symptoms. Tests will also be done, such as: ? A post-void bladder scan. This measures any amount of urine that may remain in your bladder after you finish urinating. ? A digital rectal exam. In a rectal exam, your health care provider checks your prostate by putting a lubricated, gloved finger into your rectum to feel the back of your prostate gland. This exam detects the size of your gland and any abnormal lumps or growths. ? An exam of your urine (urinalysis). ? A prostate specific antigen (PSA) screening. This is a blood test used to screen for prostate cancer. ? An ultrasound. This test uses sound waves to electronically produce a picture of your prostate gland. Your health care provider may refer you to a specialist in kidney and prostate diseases (urologist). How is this treated? Once symptoms begin, your health care provider will monitor your condition (active surveillance or watchful waiting). Treatment for this condition will depend on the severity of your condition. Treatment may include: ? Observation and yearly exams. This may be the only treatment needed if your condition and symptoms are mild. ? Medicines to relieve your symptoms, including: ? Medicines to shrink the prostate. ? Medicines to relax the muscle of the prostate. ? Surgery in severe cases. Surgery may include: ? Prostatectomy. In this procedure, the prostate tissue is removed completely through an open incision or with a laparoscope or robotics. ? Transurethral resection of the prostate (TURP). In this procedure, a tool is inserted through the opening at the tip of the penis (urethra). It is used to cut away tissue of the inner core of the prostate. The pieces are removed through the same opening of the penis. This removes the blockage. ? Transurethral incision (TUIP). In this procedure, small cuts are made in the prostate. This lessens the prostate's pressure on the urethra. ? Transurethral microwave thermotherapy (TUMT). This procedure uses microwaves to create heat. The heat destroys and removes a small amount of prostate tissue. ? Transurethral needle ablation (TUNA). This procedure uses radio frequencies to destroy and remove a small amount of prostate tissue. ? Interstitial laser coagulation (ILC). This procedure uses a laser to destroy and remove a small amount of prostate tissue. ? Transurethral electrovaporization (TUVP). This procedure uses electrodes to destroy and remove a small amount of prostate tissue. ? Prostatic urethral lift. This procedure inserts an implant to push the lobes of the prostate away from the urethra. Follow these instructions at home: ? Take [id number] and prescription medicines only as told by your health care provider. ? Monitor your symptoms for any changes. Contact your health care provider with any changes. ? Avoid drinking large amounts of liquid before going to bed or out in public. ? Avoid or reduce how much caffeine or alcohol you drink. ? Give yourself time when you urinate. ? Keep all follow-up visits as told by your health care provider. This is important. Contact a health care provider if: ? You have unexplained back pain. ? Your symptoms do not get better with treatment. ? You d (more content not included)... Normal [facility] Urology Office/Clinic Noteon 08-16-2021 Urology Office/Clinic Note Chief Complaint Perineal pain HPI Staff 81 year old male here today for perineal pain. Previous dx of BPH with urinary obstruction, family hx of prostate cancer (Prostatectomy 1998 was benign), glucosuria and perineal pain. Pt states that he became concerned because the pain is a bit more in the past 2 days and this morning he noticed there was blood in his stool. Pt continues taking Bactrim DS 800mg-160mg BID. Dysuria: no Incomplete bladder emptying: no Hematuria: none Frequency: no Urgency: no Nocturia: 1x Stream: good steady stream Leaking: no Post void dripping: a little Wearing pads/ Depends: no Urge incontinence: no Stress incontinence: no leaking but states that he has pain in his perineum when he coughs or sneezes. Incontinence without Sensory Awareness: no Abdominal pain: no Flank pain: no Sexual complaints: no History of Present Illness Reviewed UA. There have been no associated fever, chills, flank pain or blood in the urine. Pt. denies any pain/burning with urination at this time. Review of Systems PHQ Score Initial Depression Screen Score: 0 ROS - Provider Constitutional: denies weight loss, denies hot flashes. Eyes: denies eye problems. Gastrointestinal: denies nausea, denies vomiting. Cardiovascular: denies chest pain or angina. Integumentary: no dryness Musculoskeletal: denies musculoskeletal symptoms. ENMT: denies otolaryngeal symptoms. Respiratory: no shortness of breath. Heme/Lymph: denies easy bleeding tendency, denies easy bruising tendency. Psychiatric: no confusion, no anxiety. Genitourinary: See HPI. Physical Exam Vitals & Measurements HR: 80(Peripheral) RR: 16 BP: 120/81 HT: 165.0 cm HT: 165 cm WT: 80.0 kg WT: 80 kg BMI: 29.38 General Appearance: alert, no distress, well nourished, well developed male. Genitourinary: normal scrotum, normal testes, normal urethra, normal epididymis, normal vas deferens/spermatic cord. Flank Pain: none. Bladder: nonpalpable. Rectal: protruding hemorrhoid noted from rectum. blood on his rectal pad. Assessment/Plan 1. Perineal pain (R10.2: Pelvic and perineal pain) UA today shows no signs of blood nor infection. This pain could be from a prostate infection since it has subsided after 5 dyas of bactrim or it could be from a hemorrhoid . Directed pt. to finish Bactrim DS. All questions/concerns were discussed. Pt. to call the office if heencounters any issues prior. Pt. acknowledges understanding. 2. BPH with urinary obstruction (N40.1: Benign prostatic hyperplasia with lower urinary tract symptoms) S/p retropubic prostatectomy done in 1998 for BPH. Pt. is not on any BPH meds. at this time and is doing well overall w/ his urination. 3. Family history of prostate cancer (Z80.42: Family history of malignant neoplasm of prostate) Father and grandfather. 4. Hemorrhoid (K64.9: Unspecified hemorrhoids) Pt. states having blood in stool this morning. Hemorrhoid noted on today's exam. Advised pt. to f/u with PCP/general surgery. I have reviewed the previous health record information and history for this pt. from Dr. Love. Follow-up With When Contact Information SHILA EDGAR, Nathaniel Yusuf, URL [address] [place] [address] [place] [phone] Additional Instructions: prn Patient Education Benign Prostatic Hyperplasia I, Emily Mariscal , personally scribed for Dr. Love on 08/16/2021 12:35:55. . Documentation recorded by the scribe, Emily Mariscal, accurately reflects the services(s) I performed and decisions made by me. Authenticated by Dr. Love on 08/16/2021 12:38:24. Problem List/Past Medical History Ongoing BPH with urinary obstruction Family history of prostate cancer Glucosuria Hemorrhoid History of kidney stones Hypertension Kidney stone Perineal pain Prostate pain Historical Elevated PSA Procedure/Surgical History Cystoscopy (05/2008), Retropubic prostatectomy (05/1999), Hernia repair, Lithotripsy, Transrectal biopsy of prostate using ultrasound (US) guidance. Medications amoxicillin-clavulanate 875 mg-125 mg Tab, Not taking Bactrim DS 800 mg-160 mg Tab, 1 tab(s), Oral, BID lisinopril 10 mg Tab Multi Vitamin+ Allergies No Known Medication Allergies Social History Tobacco Never (less than 100 in lifetime) Tobacco Use:., 12/06/2019 Family History Primary malignant neoplasm of prostate: Father and Grandparent. Immunizations Vaccine Date Status Comments SARS-CoV-2 (COVID-19) mRNA BNT-162b2 vax 2020 Recorded pt does not know the dates influenza virus vaccine, live, trivalent 07/29/2019 Recorded Lab Results Ambulatory Point of Care Results Bilirubin Urine Dipstick: Negative (08/16/21 11:52:00) Blood Urine Dipstick: Negative (08/16/21 11:52:00) Glucose Urine Dipstick: Negative (08/16/21 11:52:00) Ketones Urine Dipstick: Negative (08/16/21 11:52:00) Leukocytes Urine Dipstick: Negative ( (more content not included)... Normal [facility] Comment on above: Result Comment: Elec tronically Signed By: Nathaniel LOVE MD\.br\Date and Time Signed: 08/16/21 12:38 EST\.br\Electronically Co-Signed By: Emily Mariscal MA\.br\Date and Time Co-Signed: 08/16/21 12:36 EST Ambulatory Clinical Summaryo n 08-12-2021 Ambulatory Clinical Summary {[id number] [facility] Historical Records Officeon 08-12-2021 Historical Records Office [id number] D:127 [facility] Patient Educationon 08-12-20 Patient Education Infectious Disease Prostatitis Prostatitis is swelling of the prostate gland. The prostate helps to make semen. It is below a man's bladder, in front of the rectum. There are different types of prostatitis. Follow these instructions at home: ? Take uzan-ngf-wyuzqkq and prescription medicines only as told by your doctor. ? If you were prescribed an antibiotic medicine, take it as told by your doctor. Do not stop taking the antibiotic even if you start to feel better. ? If your doctor prescribed exercises, do them as directed. ? Take sitz baths as told by your doctor. To take a sitz bath, sit in warm water that is deep enough to cover your hips and butt. ? Keep all follow-up visits as told by your doctor. This is important. Contact a doctor if: ? Your symptoms get worse. ? You have a fever. Get help right away if: ? You have chills. ? You feel sick to your stomach (nauseous). ? You throw up (vomit). ? You feel light-headed. ? You feel like you might pass out (faint). ? You cannot pee (urinate). ? You have blood or clumps of blood (blood clots) in your pee (urine). This information is not intended to replace advice given to you by your health care provider. Make sure you discuss any questions you have with your health care provider. Document Released: 03/26/2013 Document Revised: 09/07/2018 Document Reviewed: 06/15/2017 [employer] Patient Education ? 2019 Conferensum. Fritz [facility] Urology Office/Clinic Noteon 08-12-2021 Urology Office/Clinic Note Chief Complaint Prostate pain HPI Staff 81 year old male here for prostate pain. Previous dx of kidney stone, family hx of prostate cancer (Prostatectomy 1998) and prison use of blood thinners. Dysuria: no Incomplete bladder emptying: no Hematuria: no Frequency: no Urgency: no Nocturia: 1x Stream: pt states good steady stream Leaking: no Post void dripping: yes a little Wearing pads/ Depends: no Urge incontinence: no Stress incontinence: no but pt states that coughing and sneezing causes pain between his rectum and scrotal area Incontinence without Sensory Awareness: no Abdominal pain: no Flank pain: no Sexual complaints: no History of Present Illness reviewed UA. Reviewed last encounter. There have been no associated fever, chills, flank pain or blood in the urine. Review of Systems PHQ Score Initial Depression Screen Score: 0 ROS - Provider Constitutional: denies weight loss, denies hot flashes. Eyes: denies eye problems. Gastrointestinal: denies nausea, denies vomiting. Cardiovascular: denies chest pain or angina. Integumentary: no dryness Musculoskeletal: denies musculoskeletal symptoms. ENMT: denies otopharyngeal symptoms. Respiratory: no shortness of breath. Heme/Lymph: denies easy bleeding tendency, denies easy bruising tendency. Psychiatric: no confusion, no anxiety. Genitourinary: denies dysuria, denies hematuria, denies discharge, denies urinary frequency, denies urinary hesitancy, denies nocturia, denies incontinence, denies genital sores, denies decreased libido, and denies erectile dysfunction. Physical Exam Vitals & Measurements HR: 79(Peripheral) RR: 16 BP: 118/83 HT: 165 cm HT: 165.0 cm WT: 80 kg WT: 80.0 kg BMI: 29.38 General Appearance: alert, no distress, well nourished, well developed male. Flank Pain: none. Bladder: nonpalpable. Assessment/Plan 1. BPH with urinary obstruction (N40.1: Benign prostatic hyperplasia with lower urinary tract symptoms) Pt is not voicing any urinary issues, and is currently not taking any BPH medications. He is to call the office if there is any change in sx. Ordered: sulfamethoxazole-trimet hoprim, 1 tab(s), Oral, BID for 14 day(s), 28 tab(s), Refill(s) 0, [id number], 165, cm, 08/12/21 9:35:00 EDT, Height/Length Dosing, 80, kg, 08/12/21 9:35:00 EDT, Weight Dosing Office Visit Level 4 Est 80428 2. Family history of prostate cancer (Z80.42: Family history of malignant neoplasm of prostate) tissue from retropubic prostatectomy 1998 was benign. Most recent PSA was done 05/04/2017 and was low at 0.46 and PSA check were then D/C at the last encounter. Ordered: sulfamethoxazole-trimet hoprim, 1 tab(s), Oral, BID for 14 day(s), 28 tab(s), Refill(s) 0, [id number], 165, cm, 08/12/21 9:35:00 EDT, Height/Length Dosing, 80, kg, 08/12/21 9:35:00 EDT, Weight Dosing Office Visit Level 4 Est 39226 3. Glucosuria (R81: Glycosuria) 100mg/dl was found in the sample he left today. pt advised to discuss with PCP at next visit. says he is regularly checked for diabetes. Ordered: sulfamethoxazole-trimet hoprim, 1 tab(s), Oral, BID for 14 day(s), 28 tab(s), Refill(s) 0, [id number], 165, cm, 08/12/21 9:35:00 EDT, Height/Length Dosing, 80, kg, 08/12/21 9:35:00 EDT, Weight Dosing Office Visit Level 4 Est 90103 4. Perineal pain (R10.2: Pelvic and perineal pain) S/P Retropubic Prostatectomy done in 1998 for BPH. pt states that there was about 10% of the Prostate left over. Pt states that he is having a constant dull pain for the past 3 days, and worsen when he coughs or sneezes. He is not voicing any other urinary changes. Pt said the pain does lessen with a hot bath and ASA. discussed case with PRW who agrees this sounds like prostatitis of the remaining prostate tissue. will treat with abx. pt will call with update in a few weeks. Ordered: sulfamethoxazole-trimet hoprim, 1 tab(s), Oral, BID for 14 day(s), 28 tab(s), Refill(s) 0, [id number], 165, cm, 08/12/21 9:35:00 EDT, Height/Length Dosing, 80, kg, 08/12/21 9:35:00 EDT, Weight Dosing Office Visit Level 4 Est 06123 Orders: Urnls Dip Stick Auto w/o Microscopy POC [id number] I have reviewed the previous health record information and history for this patient from Lee MURRAY Jennifer Follow-up With When Contact Information ROSALIND DICKERSON PA-C [id number] [facility] [place] [address] Additional Instructions: Patient Education Prostatitis, [id number]-[id number] I, Ana Ventura, personally scribed for Lee MURRAY Jennifer on 08/12/2021 10:14:53. . Documentation recorded by the scribe Ana Ventura accurately reflects the services(s) I performed and decisions made by me. Authenticated by Rosalind Dickerson PA-C on 08/12/2021 11:57:56. Problem List/Past Medical History Ongoing BPH with urinary obstruction Family history of prostate cancer Glucosuria History of kidney stones Hypertensi (more content not included)... Normal [facility] Comment on above: Result Comment: Elec tronically Signed By: ROSALIND DICKERSON PA-C\.br\Date and Time Signed: 08/12/21 11:58 EDT\.br\Electronically Co-Signed By: Ana Ventura MA.br\Date and Time Co-Signed: 11/04/21 10:15 EDT Vital Signs Date Time Vital Sign Value Performing Clinician Facility 12-04-2024 09:01-0500 Body height 165.1 cm June Bacon [employer] Work Phone: [facility] 12-04-2024 09:01-0500 Body mass index (BMI) [Ratio] 28.12 kg/m2 June Bacon [employer] Work Phone: [facility] 12-04-2024 09:01-0500 Body weight 76.66 kg June Bacon [employer] Work Phone: [facility] 12-04-2024 09:01-0500 Diastolic blood pressure 76 mm[Hg] June Bacon [employer] Work Phone: [facility] 12-04-2024 09:01-0500 Heart rate 87 /min June Bacon [employer] Work Phone: [facility] 12-04-2024 09:01-0500 Respiratory rate 17 /min June Bacon [employer] Work Phone: [facility] 12-04-2024 09:01-0500 SaO2% (BldA) [Mass fraction] 94 % June Bacon [employer] Work Phone: [facility] 12-04-2024 09:01-0500 Systolic blood pressure 124 mm[Hg] June Bacon [employer] Work Phone: [facility] 02-07-2023 10:34-0400 Diastolic blood pressure 88 mm[Hg] PHYSICIAN NO [facility] 02-07-2023 10:34-0400 Heart rate 60 /min PHYSICIAN NO [facility] 02-07-2023 10:34-0400 Respiratory rate 16 /min PHYSICIAN NO [facility] 02-07-2023 10:34-0400 SaO2% (BldA) [Mass fraction] 99 % PHYSICIAN NO [facility] 02-07-2023 10:34-0400 Systolic blood pressure 129 mm[Hg] PHYSICIAN NO [facility] 02-07-2023 09:14-0400 Body height 162.56 cm PHYSICIAN NO [facility] 02-07-2023 09: Body temperature 98.3 [degF] PHYSICIAN NO [facility] 02-07-2023 09: Body weight 77.11 kg PHYSICIAN NO [facility] Encounters Encounter Date Encounter Type Care Provider Facility Start: 12-04-2024 End: 12-04-2024 Bamboo flowsheet June Bacon [employer] Work Phone: [facility] Start: 12-04-2024 End: 12-04-2024 Bamboo flowsheet June Bacon [employer] Work Phone: [facility] Start: 12-04-2024 End: 12-04-2024 Assay of hemosiderin, quant June Bacon [employer] Work Phone: [facility] Start: 12-04-2024 End: 12-04-2024 Patient encounter procedure June Bacon [employer] Work Phone: [facility] Comment on above: Medicare annual well ness visit, subsequent (Primary Dx); Type 2 diabetes mellitus without complications (CMS/HCC); Thoracic aortic aneurysm without rupture, unspecified part (CMS/HCC); Essential hypertension (CMS/HCC); Midsystolic murmur; Hyperplasia of prostate without lower urinary tract symptoms (LUTS); Uric acid urolithiasis; Mixed hyperlipidemia (CMS/HCC); Pure hypercholesterolemia (CMS/HCC); Routine general medical examination at health care facility; Screening for prostate cancer Start: 12-04-2024 End: 12-04-2024 ambulatory JUNE BACON Not Available Start: 06-19-2024 End: 06-19-2024 ambulatory MICAH JAMAL [facility] Start: 02-07-2023 End: 02-07-2023 ambulatory Imad Asaad Facility:[facility] Start: 02-07-2023 End: 02-07-2023 Admission to same day surgery center PHYSICIAN NO [facility] Work Phone: Start: 02-07-2023 End: 02-07-2023 ambulatory PHYSICIAN NO [facility] Work Phone: Start: 12-14-2022 End: 12-14-2022 ambulatory Devonte Mistytz Facility:[facility] Start: 12-14-2022 End: 12-14-2022 ambulatory DO Devonte Petra Work Phone: [facility] Work Phone: Start: 12-14-2022 End: 12-14-2022 Departed Referred DO Devonte Itudaywiedgardo Work Phone: [facility] [place] Work Phone: Start: 12-05-2022 End: 12-06-2022 ambulatory PAT FAROOQ Facility:[facility] Start: 11-15-2022 Encounter for genera l adult medical examination without abnormal findings PAT FAROOQ [facility] Start: 11-08-2022 End: 11-09-2022 ambulatory PAT FAROOQ Facility:[facility] Start: 11-08-2022 End: 11-09-2022 Encounter for general adult medical examination without abnormal findings PAT FAROOQ Facility:[facility] Start: 05-18-2022 End: 05-19-[address] JONI ROWLAND Facility:[facility] Start: 03-13-2018 End: 03-14-2018 Ambulatory DEFAULT PHYSICIAN Facility:[facility] Procedures Date Procedure Procedure Detail Performing Clinician Start: 02-07-2023 Colonoscopy PHYSICIAN NO FAMILY Plan of Treatment Date Care Activity Detail Author Start: 12-04-2025 Medicare Annual Wellness (AWV) Medicare Annual Wellness (AWV) [facility] Start: 12-04-2024 End: 12-04-2025 CBC panel - Blood by Automated count CBC Lab Routine Essential hypertension (CMS/HCC) Medicare annual wellness visit, subsequent Expected: 12/04/2024 (Approximate), Expires: 12/04/2025 [facility] Comment on above: Expected: 12/04/2024 (Approximate), Expi res: 12/04/2025 Start: 12-04-2024 End: 12-04-2025 Comprehensive metabolic 2000 panel - Serum or Plasma Comprehensive metabolic panel Lab Routine Type 2 diabetes mellitus without complications (CMS/HCC) Essential hypertension (CMS/HCC) Medicare annual wellness visit, subsequent Expected: 12/04/2024 (Approximate), Expires: 12/04/2025 [facility] Comment on above: Expected: 12/04/2024 (Approximate), Expi res: 12/04/2025 Start: 12-04-2024 End: 12-04-2025 Hemoglobin A1c/Hemoglobin.total in Blood Hemoglobin A1c Lab Routine Type 2 diabetes mellitus without complications ([facility]) Expected: 12/04/2024 (Approximate), Expires: 12/04/2025 [facility] Comment on above: Expected: 12/04/2024 (Approximate), Expi res: 12/04/2025 Start: 12-04-2024 End: 12-04-2025 Lipid 1996 panel - Serum or Plasma Lipid panel Lab Routine Mixed hyperlipidemia ([facility]) Pure hypercholesterolemia ([facility]) Expected: 12/04/2024 (Approximate), Expires: 12/04/2025 [facility] Work Phone: Comment on above: Expected: 12/04/2024 (Approximate), Expi res: 12/04/2025 Start: 12-04-2024 End: 12-04-2025 Microalbumin/Creatinin e panel in random Urine Microalbumin / creatinine, urine ratio Lab Routine Type 2 diabetes mellitus without complications ([facility]) Expected: 12/04/2024 (Approximate), Expires: 12/04/2025 [facility] Comment on above: Expected: 12/04/2024 (Approximate), Expi res: 12/04/2025 Start: 12-04-2024 End: 12-04-2025 Prostate specific Ag [Mass/volume] in Serum or Plasma PSA Lab Routine Screening for prostate cancer Expected: 12/04/2024 (Approximate), Expires: 12/04/2025 [facility] Comment on above: Expected: 12/04/2024 (Approximate), Expi res: 12/04/2025 Start: 12-04-2024 End: 12-04-2024 Patient encounter procedure 12/04/2024 9:00 AM EST Office Visit [facility] [address] [place] [id number] June Bacon NP [address] [place] [address] [facility] Comment on above: Arrived Start: 07-26-2024 Medicare Annual Wellness (AWV) Medicare Annual Wellness (AWV) [facility] Start: 06-09-2024 Influenza vaccination Influenza Vaccine (#1) [facility] Start: 02-07-2023 [facility] Start: 04-20-2022 Hemoglobin A1c measurement Diabetes: Hemoglobin A1C [facility] Start: 11-28-2019 Glaucoma screening Diabetes: Retinopathy Screening [facility] Start: 1960 Urine screening for protein Diabetes: Urine Protein Screening [facility] Patient Education Colon Polyps H emorrhoids (DC) Diverticulosis (DC) [facility] Work Phone: Immunizations Immunization Date Immunization Notes Care Provider Fa cility 07-30-2024 influenza virus vacc ine, unspecified formulation June Bacon [employer] Work Phone: [facility] 07-26-2023 Influenza, High-dose Seasonal, Quadrivalent, Preservative Free June Bacon [employer] Work Phone: [facility] Payers Date Payer Category Payer Self-pay [id number] 2021 Medicaid [employer] MEDICARE A DVANTAGE [id number] 1959 Medicare [id number] 1940 Unknown [id number] 1941 Unknown [id number] 1941 Unknown [id number] 1941 Unknown [id number] Private Health Insurance [employer] Mcr PFFS N on Pt [id number] Unknown Unknown [id number] Unknown [id number] Social History Date Type Detail Facility Tobacco smoking stat us [facility] Unknown if ever smoked [facility] Work Phone: Start: 1940 Sex Assigned At Male F [facility] Start: 02-07-2023 End: 07-26-2023 Tobacco smoking status NHIS Never smoked tobacco (finding) [facility] Start: 07-26-2023 Tobacco use and exposure Smokeless tobacco non-user [facility] Start: 07-26-2023 End: 12-04-2024 Alcoholic beverage intake Lifetime non-drinker (finding) [facility] Start: 07-26-2023 End: 12-04-2024 History of Social function [facility] Start: 07-26-2023 End: 12-04-2024 Tobacco use panel [facility] Start: 1940 Sex assigned at Not on file [facility] Goals Date Patient Goal Desired Activity /State Clinical Notes 02-07-2023 to 12-04-2024 June Bacon, [employer] - 12/04/2024 9:00 AM EST Note Date & Type Note Facility 12-04-2024 History of Present illness Narrative Images from the original note were not included. Subjective : Chief Complaint: Giuseppe Locke is an 84 y.o. male here for an annual wellness visit. I have reviewed and reconciled the history and medication list with the patient today. Current Outpatient Medications Medication Sig Dispense Refill Glucosamine 500 MG capsule 1 (one) time each day at the same time. lisinopril 5 MG tablet Take 5 mg by mouth. No current facility-administered medications for this visit. Review of Systems Constitutional: Negative. HENT: Negative. Eyes: Negative. Respiratory: Negative. Cardiovascular: Negative. Gastrointestinal: Negative. Genitourinary: Negative. Musculoskeletal: Negative. Skin: Negative. Neurological: Negative. Psychiatric/Behavioral: Negative. All other systems reviewed and are negative. Endocrine: Negative. List of current healthcare providers: Patient Care Team: Galindo Benito MD as PCP - General (Internal Medicine) Monie Prado MD as PCP - [employer] Annual Visit Over the past 2 weeks, how often have you been bothered by any of the following problems? Little interest or pleasure in doing things: Not at all Feeling down, depressed, or hopeless: Not at all Patient Health Questionnaire-2 Score: 0 Louis Fall Risk History of Falling, Immediate or Within 3 Months: No Health Risk Assessment Form Do you need help eating, bathing, using the toilet, dressing, or getting around your home?: No Can you prepare your own meals?: Yes Can you do your own housework without help?: Yes Can you shop for groceries or clothes without help?: Yes Do you exercise for about 20 minutes 3 or more days a week?: Yes How confident are you that you can control and manage most of your health problems?: Very confident Can you mange your money, credit cards and accounts, pay bills and taxes?: Yes Cognitive Screening Three Word Registration: Banana, [place], Chair Clock Drawing: Normal Clock - 2 Three Word Recall: All 3 words correct - 3 Total Score (0-5 Points): 5 Pain Assessment Pain Score: 0 - No pain Advance Care Planning Do you have a living will?: Yes Do you have a medical power of employment attorney?: Yes Objective : BP 124/76 Pulse 87 Resp 17 Ht 5' 5 Wt 169 lb SpO2 94% BMI 28.12 kg/m No results found. Physical Exam Vitals reviewed. Constitutional: Appearance: Normal appearance. HENT: Head: Normocephalic. Nose: Nose normal. Mouth/Throat: Mouth: Mucous membranes are moist. Pharynx: Oropharynx is clear. Eyes: Conjunctiva/sclera: Conjunctivae normal. Pupils: Pupils are equal, round, and reactive to light. Cardiovascular: Rate and Rhythm: Normal rate. Heart sounds: Murmur heard. Pulmonary: Effort: Pulmonary effort is normal. Breath sounds: Normal breath sounds. Abdominal: General: Bowel sounds are normal. Palpations: Abdomen is soft. Musculoskeletal: General: Normal range of motion. Cervical back: Neck supple. Skin: General: Skin is warm and dry. Neurological: General: No focal deficit present. Mental Status: He is alert and oriented to person, place, and time. Psychiatric: Mood and Affect: Mood normal. Behavior: Behavior normal. Assessment/Plan : The following health maintenance schedule was reviewed with the patient and provided in printed form in the after visit summary: Health Maintenance Topic Date Due Medicare Annual Wellness (AWV) 07/26/2024 Influenza Vaccine Completed Pneumococcal Vaccine: 65+ Years Completed Advance Care Planning Has living will and DPOA 1. Type 2 diabetes mellitus without complications ([facility]) - Comprehensive metabolic panel; Future - Hemoglobin A1c; Future - Microalbumin / creatinine, urine ratio; Future - Comprehensive metabolic panel - Hemoglobin A1c - Microalbumin / creatinine, urine ratio We discussed today, the importance of proper diabetic control. We discussed possible complications of diabetes, including loss of vision, renal failure, increased risk of heart attacks and strokes, blood vessel and/or nerve damage. We discussed the recommended changes to reduce your blood sugars and minimize the risk of these complications. We discussed diabetic goals, including keeping A1C <7.0% and blood pressure < 130/70. The plan for achieving these goals is adherence to medications, diet, and regular activity as discussed during today's visit. We discussed current barriers to achieving these goals. We discussed dietary goals. We discussed calorie counting, as well as decreasing carbohydrate and simple sugar intake. Reviewed portion control with the patient. If the patient still has questions on this, a referral to a Dietitian can be arranged. I reviewed medications that aid in diabetic control. We discussed proper dosing and educated the patient on possible side effects and complications. The patient verbalized understanding of these instructions. 2. Thoracic aortic aneurysm without rupture, unspecified part ([facility]) This is a chronic medical condition that is stable since last assessment. No changes in treatment are suggested at this time. Follows up with vascular/cardiology. 3. Essential hypertension ([facility]) Patient's blood pressure is currently well controlled. Continue with current medications and I will continue to monitor. Goal BP remains less than 130/80. - Comprehensive metabolic panel; Future - CBC; Future - Comprehensive metabolic panel - CBC 4. Midsystolic murmur This is a chronic medical condition that is stable since last assessment. No changes in treatment are suggested at this time. 5. Hyperplasia of prostate without lower urinary tract symptoms (LUTS) This is a chronic medical condition that is stable since last assessment. No changes in treatment are suggested at this time. Urology no longer wants to follow. 6. Uric acid urolithiasis No stones as this time. 7. Mixed hyperlipidemia (CMS/HCC) Stressed the importance of limiting processed foods and decreasing fat. - Lipid panel; Future - Lipid panel 8. Pure hypercholesterolemia (CMS/HCC) Stressed the importance of limiting processed food and decreasing fat intake. Decrease fried foods. - Lipid panel; Future - Lipid panel 9. Medicare annual wellness visit, subsequent (Primary) Reviewed all relevant preventative screenings with the patient in detail. Medicare Wellness form completed and will be scanned into patient's chart. All needed testing was ordered. Will continue with yearly Medicare Wellness exams. - Comprehensive metabolic panel; Future - CBC; Future - Comprehensive metabolic panel - CBC 10. Routine general medical examination at [facility] care facility Wellness form reviewed in detail with the patient. Encouraged patient to stay up to date on immunizations and preventative testing. Encouraged healthy diet, stay active. Will continue with yearly wellness exams. 11. Screening for prostate cancer Await lab - PSA; Future - PSA No orders of the defined types were placed in this encounter. Electronically signed by June Bacon NP on December 04, 2024 documented in this encounter [facility] 06-19-2024 Note Hypertension is well controlled, renal function stable and continue lisinopril. Lightheadedness/dizziness resolved after reducing dose at last visit. [facility] 06-19-2024 Note Thoracic aneurysm re deena stable without significant widening since last TTE- HTN well controlled Continue lisinopril. -In [address] 4[address]1 ; [address] 4[address]3 -05/2020: ECHO ascending 4.04, root 4.37cm; CT: 4.1cm -ECHO 05/2022: AoRoot 4.65cm, AsAo 4.0cm - [facility] 06-19-2024 Note Current echo reviewe d with and noted aortic stenosis has went from mild to moderate- he remains asymptomatic. D/W pt to call office for chest pain, SOB, palpitations, lightheadedness/dizziness or syncope and he voiced understanding. [facility] 06-19-2024 Note Pt here for a one ye ar follow up with echo. Pt denies chest pain, palpatations, sob. Review of Systems All other systems reviewed and are negative. [facility] 06-19-2024 Note [facility] CARDIOLOGY PROGR ESS NOTE HPI: Giuseppe Locke is a 84 y.o. male here for Routine F/U HPI 84 yo male here for AO stenosis, MVR, Thoracic aneurysm, Htn . Pt denies chest pain, palpatations, sob, orthopnea, lightheadedness/dizziness or syncope. Review of Systems All other systems reviewed and are negative Visit Vitals BP 117/75 (BP Location: Right arm, Patient Position: Sitting) Pulse 81 Ht 1.651 m (5' 5 ) Wt 78 kg (172 lb) SpO2 96% BMI 28.62 kg/m??? Smoking Status Never BSA 1.89 m??? No Known Allergies Medications: Current Outpatient Medications on File Prior to Visit Medication Sig Dispense Refill lisinopril 5 mg tablet Take 1 tablet (5 mg) by mouth in the morning. 90 tablet 3 No current facility-administered medications on file prior to visit. Physical Exam: Constitutional: Appearance: Normal appearance. Without apparent distress HENT: Head: Normocephalic and atraumatic. Nose: Nose normal. Mouth/Throat: Mouth: Mucous membranes are moist. Eyes: Extraocular Movements: Extraocular movements intact. Conjunctiva/sclera: Conjunctivae normal. Neck: Vascular: No JVD. Cardiovascular: Rate and Rhythm: Normal rate and regular rhythm. Pulses: Dorsalis pedis pulses are 3 on the right side and 3on the left side. Posterior tibial pulses are 3 on the right side and 3 on the left side. Heart sounds: Systolic murmur RUSB and Plummer 3/6 with radiation to carotid, S1 normal and S2 normal. Pulmonary: Effort: Pulmonary effort is normal. Breath sounds: Normal breath sounds. Abdominal: General: Bowel sounds are normal. Palpations: Abdomen is soft. Musculoskeletal: General: Normal range of motion. Cervical back: Normal range of motion. Right lower leg: No edema. Left lower leg: No edema. Skin: General: Skin is warm and dry. Capillary Refill: Capillary refill takes less than 2 seconds. Neurological: General: No focal deficit present. Mental Status: he is alert and oriented to person, place, and time. Psychiatric: Mood and Affect: Mood normal. Behavior: Behavior normal. Thought Content: Thought content normal. Judgment: Judgment normal. Labs: 12/2020 with patient, LDL was at 118 Trig 136 LDL 111.8 Last lab values have been reviewed CV Testin05/27/24 TTE- reviewed with pt- Aneurysm remains stable at 4.3 cm 12/05/22 Echo- reviewed with pt AO stenosis remains mild and Thoracic aneurysm stable without widening Abdominal US 05/18/22: no abdominal aortic aneurysm identified. Echo 05/18/2022 1. Mild concentric LVH with normal systolic function, LVEF is 65% 2. Normal RV systolic function 3. Mild posterior mitral valve leaflet prolapse with mild regurg 4. Mild aortic valve stenosis 5. Normal right-sided pressures 6. Moderately dilated aortic root measuring 4.65 cm 7. Mildly to moderately dilated ascending aorta measuring 4 cm 8. No pericardial effusion Chest CT with contrast 05/21/2020: Stable mild dilation of the ascending aorta, 4.1 cm in diameter, infiltrates or suspicious findings, stable small hemangioma versus cyst within the left hepatic lobe chest CT with contrast 05/20/2019: Dilation of the ascending aorta up to 4.3 cm in diameter Assessment/Plan: Aortic valve stenosis Current echo reviewed with and noted aortic stenosis has went from mild to moderate- he remains asymptomatic. D/W pt to call office for chest pain, SOB, palpitations, lightheadedness/dizziness or syncope and he voiced understanding. Ascending aortic aneurysm (CMS/HCC) Thoracic aneurysm remains stable without significant widening since last TTE- HTN well controlled Continue lisinopril. -In [address] 4[address]1 ; [address] 4[address]3 -05/2020: ECHO ascending 4.04, root 4.37cm; CT: 4.1cm -ECHO 05/2022: AoRoot 4.65cm, AsAo 4.0cm - Benign essential HTN Hypertension is well controlled, renal function stable and continue lisinopril. Lightheadedness/dizziness resolved after reducing dose at last visit. RTC 6months [facility] 02-07-2023 Procedure note [facility] Evaluation note No assessment information availa kasandra [facility] Work Phone: Evaluation note Diagnosis Medicare annual wellness visit, subsequent- Primary Type 2 diabetes mellitus without complications (CMS/HCC) Thoracic aortic aneurysm without rupture, unspecified part ([facility]/HCC) Essential hypertension ([facility]/HCC) Unspecified essential hypertension Midsystolic murmur Undiagnosed cardiac murmurs Hyperplasia of prostate without lower urinary tract symptoms (LUTS) Unspecified hyperplasia of prostate without urinary obstruction and other lower urinary tract symptoms (LUTS) Uric acid urolithiasis Uric acid nephrolithiasis Mixed hyperlipidemia (CMS/HCC) Mixed hyperlipidemia Pure hypercholesterolemia ([facility]/HCC) Pure hypercholesterolemia Routine general medical examination at health care facility Routine general medical examination at a health care facility Screening for prostate cancer Special screening for malignant neoplasm of prostate documented in this encounter [facility] physical note Author Liu Dawkins [facility] February 07, 2023 9:21am Note Date/Time February 07, 2023 9:21am [facility] [address] [place] [address] Gastroenterology H&P Signed Patient: Giuseppe Locke MR#: [id number] : 1940 Acct:[id number] Age/Sex: 82 / M Adm Date: 3 Loc: Room: Type: [facility] Attending Dr: Liu Dawkins MD Copies to: MD Liu Gan II, MD~ Date of Service: 02/07/2023 HISTORY & PHYSICAL: Patient's history with special attention to the cardiovascular, pulmonary systems and the current problem was reviewed with the patient immediately prior to the procedure. Present medications and doses reviewed in the EMR. Allergies and pertinent laboratory tests were also reviewedat this time in the EMR. The physical examination, as below, was then performed. Indication, assessment and HPI: 82-year-old man with history of colonic polyps here for colonoscopy with polypectomy Family history of GI malignancy? No PHYSICAL EXAMINATION Mouth and Pharynx : Moist mucus membranes, normal dentition Cardiac: Regular rate, regular rhythm Pulmonary: Clear to auscultation bilaterally, no wheezing Neurological: Alert and oriented x3, no focal deficits noted Abdomen: Abdomen soft, non-tender REVIEW OF SYSTEMS Constitutional: Denies malaise, fevers Cardiovascular: Denies chest pain, palpitations Respiratory: Denies shortness of breath, wheezing Gastrointestinal: Per HPI Genitourinary: Denies dysuria, polyuria Musculoskeletal: Denies joint swelling, joint stiffness Neurological: Denies numbness, tingling Integumentary: Denies rashes, skin lesions Endocrine: Denies fatigue, weight loss Written informed consent obtained from the patient. Risks (including but not limited to perforation, infection, bloating, bleeding, need for emergent surgeryand loss of life), benefits and alternatives explained and questions answered. The patient verbalized understanding. Based on history patient is an appropriate candidate for the procedure. Liu Dawkins M.D. Documented By: Liu Dawkins MD 02/07/2319 Signed By: <Electronically signed by Liu Dawkins MD> 02/07/23920 [facility] Work Phone: Hospital Discharge instructions Additional Instructions DISCHARGE INSTRUCTIONS FOR COLONOSCOPY WHAT TO EXPECT: - You may feel full, gassy or cramping after your procedure. In some cases, this may be from a few hours to a day. Walking may help relieve the discomfort. - If you have polyp(s) removed you may note some minor bloody discharge after your first bowel movements. - You should begin to recover from anesthesia within 1 hour of the procedure, however may feel groggy for the next 24 hours. DO's AND DON'Ts: - Call your doctor right away if you have a hard abdomen, severe pain, are passing lots of bright red blood or clots. - Call your doctor if you develop any rashes, hives or difficulty breathing. - Let your doctor know if you have not had a bowel movement by 3 days after your procedure. - If you take 81 mg aspirin for your heart it is safe to resume this medication. - If you take other blood thinner medications your doctor will instruct you when these can safely be resumed. - Do NOT drive for 24 hours. - Do NOT operate machinery such as power [employer], lawn mowers, snow blowers, sewing machines, etc. for 24 hours. - Avoid alcoholic beverages and drugs for allergies, nerves, or sleep. - Do NOT stay alone. Do NOT leave your child unattended. - Do NOT make important personal or business decisions or sign any legal documents. - Eat solid foods and drink liquids in smaller amounts than usual until normal appetite returns. If you should experience an upset stomach, liquids high in sugar content (soda, Marcial-Aid, non-acid juices) are recommended. - You can resume normal activities tomorrow. FOLLOW UP & RECOMMENDATIONS: -Notify the doctor if you have any problems. -Repeat colonoscopy in 3 years -Follow up with PCP. -Office number [phone]. [facility] Work Phone: Summary Purpose Family History No Family History Records Found Relationship Condition Age at Onset Recorded Date/T mor Not Specified No pertinent family history Unknown Advance Directives No Advanced Directives Records Found Advance Directive Response Recorded Date/ Time Advance Directives No July 25, 2018 9:45am Advance Directive Response Recorded Date/ Time Advance Directives No July 25, 2018 10:45am Chief Complaint and Reason for Visit Chief Complaint Polyp-Hepatic Flextu re (BX) Hyperplastic Polyp of Transverse Colon Additional Source Comments (unrecognized sect ion and content) No Status Records FoundNo Status Records FoundNo Status Records FoundNo Status Records FoundNo Status Records FoundNo Status Records FoundNo Status Records Found INFORMATION SOURCE (unrecogn ized section and content) DATE CREATED AUTHOR 03/27/2018 [facility] DATE CREATED AUTHOR AUTHOR'S ORGANIZ ATION 08/17/2021 [facility] DATE CREATED AUTHOR AUTHOR'S ORGANIZ ATION 12/16/2022 [facility] DATE CREATED AUTHOR AUTHOR'S ORGANIZ ATION 02/15/2023 [facility] DATE CREATED AUTHOR AUTHOR'S ORGANIZ ATION 06/21/2024 [facility] DATE CREATED AUTHOR AUTHOR'S ORGANIZ ATION 12/06/2024 [facility] DATE CREATED AUTHOR AUTHOR'S ORGANIZ ATION 12/07/2024 [facility] Care Teams (unrecognized sec tion and content) Team Status: Inactive Member Role Status Dates Devonte Lambert DO Attending Provider Active Team Status: Active Member Role Status Dates Galindo Benito II MD Primary Care Provider Active Team Status: Inactive Member Role Status Dates Devonte Lambert DO Attending Provider Active PHYSICIAN NO FAMILY Primary Care Provider Active Team Status: Inactive Member Role Status Dates Liu Dawkins MD Attending Provider Active Galindo Benito II MD Primary Care Provider Active Manager Metal Relationship Specialty Start Date End Date Galindo Benito MD [address] [facility] [address] [place] [address] PCP - General Internal Medicine 02/14/23 Monie Prado MD [address] [facility] [address] [place] [address] PCP - [employer] 10/09/21 Manager Metal Relationship Specialty Start Date End Date Galindo Benito MD [address] [facility] [address] [place] [address] PCP - General Internal Medicine 02/14/23 Monie Prado MD [address] [facility] [address] [place] [address] PCP - [employer] 10/09/21 Goals (unrecognized section and content) Goals may be documented in a n alternate section FOR RECORDS PERTAINING TO PATIENTS WHO ARE OR HAVE BEEN ENROLLED IN A CHEMICAL DEPENDENCY/SUBSTANCEABUSE PROGRAM, SOME INFORMATION MAY BE OMITTED. This clinical summary was aggregated from multiple sources. Caution should be exercised in using it in the provision of clinical care. This summary normalizes information from multiple sources, and as a consequence, information in this document may materially change the coding, format and clinical context of patient data. In addition, data may be omitted in some cases. CLINICAL DECISIONS SHOULD BE BASED ON THE PRIMARY CLINICAL RECORDS. [facility]. provides no warranty or guarantee of the accuracy or completeness of information in this document.
--- NOTE | 2024-12-27 08:00 | CA_ITS ---
Patient Name: BELLE ONEIL MR#: [id number] : 1940 Exam Date: 12/27/2024 Ordering Doctor: MICAH BERRY ECHOCARDIOGRAM REPORT PROCEDURE: CA ECHO DOPPLER COMPLETE INDICATIONS: Aortic valve stenosis, aortic aneurysm, hypertension COMPARISON: None. DESCRIPTION: COMPLETE ECHOCARDIOGRAM Real-time transthoracic echocardiography with 2D, M-mode, spectral and color flow Doppler performed. QUALITY: Technical quality was good. LEFT VENTRICLE: Normal chamber size. Thickened septal wall. Moderate concentric hypertrophy. Normal systolic function. LV EF: Normal left ventricular ejection fraction, (>55%). DIASTOLIC: ATRIAL SEPTUM: Visually appears intact. LEFT ATRIUM: Normal chamber size. RIGHT ATRIUM: Normal chamber size. RIGHT VENTRICLE: Normal chamber size. Normal right ventricular systolic function. TRICUSPID VALVE: Normal mobility and thickness. No stenosis with mild regurgitation. Doppler studies reveal mildly (35-45) elevated right sided pressures. RVSP 43 mmHg MITRAL VALVE: Normal mobility and thickness. No evidence of mitral valve stenosis. There is no mitral annular calcification. Mild to moderate mitral regurgitation. 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 Moderately calcified aortic valve. There is severe aortic valve stenosis. DVI 0.13, DAVID 0.5 cm2, Mean 74.77 mmHg. Mild aortic regurgitation. AORTIC ROOT: Aortic root is moderately dilated (4.7 cm, previously 4.3 cm). Ascending aorta is moderately dilated (4.1 cm, previously 3.8 cm). Aortic arch is dilated (3.7 cm). These areas are larger than on previous echocardiogram from 05/2024. PULMONIC VALVE: Normal thickness and mobility. No stenosis. No regurgitation. PERICARDIUM: No evidence of pericardial effusion. IVC: Collapses with inspirations. IVC is mildly dilated (2.1 cm) PLEURA: CONCLUSION: 1. Moderate concentric ventricular hypertrophy with normal systolic function. Estimated LVEF is 55 to 60%. 2. Normal right ventricular size and systolic function. 3. Bicuspid aortic valve, Tyrese type I with severe stenosis and mild regurgitation. 4. Mild to moderate mitral regurgitation. 5. Mild tricuspid regurgitation. 6. Mildly elevated right-sided pressures. RVSP is 43 mmHg. 7. Moderately dilated aortic root [measuring 4.7 cm] and ascending aorta [measuring 4.1 cm]. 8. A transesophageal echocardiogram is recommended for further confirmation of the severity of the aortic valve stenosis. 9. A CT angiogram of the chest is recommended for further assessment of the ascending aorta. Adult Echocardiography Procedure Report Left Ventricle LVEDD (3.7 - 5.6 cm): 4.66 cm LVESD (2.2 - 4.0 cm): 3.68 cm LVIVS thickness (0.6 - 1.2 cm): 1.88 cm LVPW thickness (0.5 - 1.0 cm): 1.34 cm e': 0.10 m/s E - e': 6.98 LVOT Max Gradient: 2.35 mm[Hg] LVOT Area (cm2): 0.77 m/s Peak Velocity (LVOT): 0.77 m/s Mean Velocity (LVOT): 0.55 m/s LVOT Diameter 2.12 cm Left Atrium LA Volume Index (2D A2C): 38.48 ml/m2 Left Atrium Systolic Dimension: 4.07 cm Mitral Valve MV E to A Ratio: 0.94 Mitral Valve A-Wave Peak Velocity: 0.74 m/s Mitral Valve E-Wave Peak Velocity: 0.70 m/s Right Ventricle Aorta AO Root Diam: 4.67 cm Ascending Ao Diam: 4.11 cm Aortic Valve AoV Area (Peak Freddy): 0.45 cm2, 1.22 cm2 AoV Area (VTI): 0.39 cm2, 1.47 cm2 Peak Velocity(Antegrade Flow): 2.21 m/s, 2.11 m/s, 6.01 m/s Peak Gradient(Antegrade Flow): 19.60 mm[Hg], 17.79 mm[Hg], 144.46 mm[Hg] Mean Velocity(Antegrade Flow): 1.53 m/s, 1.51 m/s, 3.96 m/s Mean Gradient(Antegrade Flow): 10.65 mm[Hg], 10.28 mm[Hg], 74.77 mm[Hg] Velocity Time Integral: 44.64 cm, 43.41 cm, 168.68 cm Tricuspid Valve Peak Velocity (Regurgitant Flow): 2.95 m/s Pulmonic Valve Mean Gradient: 2.03 mm[Hg] Mean Velocity: 0.66 m/s Peak Velocity: 1.05 m/s, 0.98 m/s Peak Gradient: 3.81 mm[Hg], 4.39 mm[Hg] Right Atrium Dictated by: Richard Stevens M.D. on 12/28/2024 at 14:09 Approved by: Richard Stevens M.D. on 12/28/2024 at 14:18
== END 2024-12-27 07:43 | disposition home or self-care (01) ==
LOC: CARD 07:43
PROVIDERS: PCP Internal Medicine; Visit Provider Nurse Practitioner
DX: I35.0 Nonrheumatic aortic (valve) stenosis (principal); I71.21 Aneurysm of the ascending aorta, without rupture
CPT/HCPCS: 93306

== ENCOUNTER 2025-03-12 14:18 | Outpatient (OUT) | payer MEDICARE, SELFPAY ==
[2025-03-12 14:46] LABS: Basophils Absolute Auto 0.1 10^3/uL (0.0-0.1); Basophils Percent Auto 1.1 % (0.2-2.0); Eosinophils Absolute Auto 0.7 10^3/uL (0.0-0.7); Eosinophils Percent Auto 8.9 % (0.9-7.0); Hematocrit 37.6 % (42.0-54.0); Hemoglobin 13.1 g/dL (14.0-18.0); Immature Granulocytes Abs Auto 0.02 10^3/uL (0.00-0.03); Immature Granulocytes Pct Auto 0.2 % (0.0-0.5); Lymphocytes Absolute Auto 3.3 10^3/uL (1.2-3.8); Lymphocytes Percent Auto 40.4 % (20.5-60.0); Mean Corpuscular HGB Conc 34.8 g/dL (29.9-35.2); Mean Corpuscular Hemoglobin 32.9 pg (25.9-34.0); Mean Corpuscular Volume 94.5 fL (80.0-94.0); Mean Platelet Volume 9.8 fL (9.5-13.5); Monocytes Absolute Auto 0.9 10^3/uL (0.3-0.8); Monocytes Percent Auto 10.6 % (1.7-12.0); Neutrophils Absolute Auto 3.1 10^3/uL (1.4-6.5); Neutrophils Percent Auto 38.8 % (43.0-75.0); Platelet Count 213 10^3/uL (150-450); Red Blood Count 3.98 10^6/uL (4.70-6.10); Red Cell Distribution Width 12.7 % (11.0-15.0); White Blood Count 8.1 10^3/uL (4.0-11.0)
[2025-03-12 15:09] LABS: Anion Gap 12.1; BUN Creatinine Ratio 18.8; Calcium 8.8 mg/dL (8.5-10.1); Carbon Dioxide 27.9 mmol/L (21.0-32.0); Chloride 106 mmol/L (98-107); Estimated GFR (African America >60 (>=60 mL/min/1.73m^2); Estimated GFR (Non-African Ame >60 (>=60 mL/min/1.73m^2); Glucose 121 mg/dL (74-106); Sodium 142 mmol/L (136-145)
== END 2025-03-12 14:19 | disposition home or self-care (01) ==
LOC: LAB 14:20
PROVIDERS: PCP Internal Medicine; Visit Provider Internal Medicine Interventional Cardiology
DX: I35.0 Nonrheumatic aortic (valve) stenosis (principal); I34.0 Nonrheumatic mitral (valve) insufficiency
CPT/HCPCS: 36415; 80048; 85025

== ENCOUNTER 2025-04-25 07:10 | Outpatient (OUT) | payer MEDICARE, SELFPAY ==
--- OUTSIDE RECORDS SUMMARY | 2025-04-25 07:14 | XMS_ITS | Encounter Summary ---
Author Organization [facility] Address [address] [place] [address] Care Team Providers Care Accounting Professor Name Role Phone Galindo Benito MD Primary Care Provider [phone] Reason for Referral * Imaging (Routine) - Authorized Specialty Diagnoses / Procedures Referred By Juanac t Referred To Contact Cardiology Diagnoses Nonrheumatic aortic valve stenosis Procedures Transthoracic echo (TTE) limited Geovanna Jason CNP [address] [place] [address] Phone: tel: fax: [facility] Heart Station [address] [place] [address] Phone: tel: fax: Referral ID Status Reason Start Date Expiration Date Visits Requested Visits Authorized [id number] Authorized Perform Procedure 04/22/2025 04/22/2026 1 1 * Imaging (Routine) - Pending Review Specialty Diagnoses / Procedures Referred By Contac t Referred To Contact Cardiology Diagnoses Nonrheumatic aortic valve stenosis Procedures Transthoracic echo (TTE) complete Geovanna Jason CNP [address] [place] [address] Phone: tel: fax: Referral ID Status Reason Start Date Expiration Date Visits Requested Visits Authorized [id number] Pending Review Perform Procedure 04/22/2025 04/22/2026 1 1 Encounter Details Date Type Department Care Team (Late st Contact Info) Description 04/22/2025 Orders Only [facility] [address] [place] [address] Geovanna Jason CNP [address] [place] [address] Nonrheumatic aortic valve stenosis (Primary Dx) Social History Tobacco Use Types Packs/Day Years Used Date Smoking Tobacco: Never Smokeless Tobacco: Never Alcohol Use Standard Drinks/Week Comments Not Currently 0 (1 standard drink = 0.6 oz pur e alcohol) [place] Safety & Environment Answer Date Rec orded Fear of Current or Ex-Partner Not on file Emotionally Abused Not on file 11/30/2023 Physically Abused Not on file 11/30/2023 Sexually Abused Not on file 11/30/2023 Physically or Sexually Abused Not on file Sex and Gender Information Value Date Recorded Sex Assigned at Not on file Legal Sex Male 11:57 PM EDT Gender Identity Not on file Sexual Orientation Not on file documented as of this encounter Plan of Treatment Upcoming Encounters Date Type Department Care Team (Late st Contact Info) Description 04/29/2025 10:00 AM EDT Hospital Encounter [facility] Heart [facility] [place] [address] Richard Stevens MD [address] [place] [address] Nonrheumatic aortic valve stenosis 04/29/2025 10:30 AM EDT Appointment [facility] [place] [facility] [address] [place] [address] 04/29/2025 12:00 PM EDT - 04/29/2025 2:00 PM EDT Surgery [facility] Heart [facility] [place] [facility] [address] [place] [address] Richard Stevens MD [address] [facility] [address] [facility] [place] [address] TAVR 05/30/2025 2:30 PM EDT Appointment [facility] Heart Station [address] [place] [phone] Scheduled Orders Name Type Priority Associated Diagnoses Order Schedule Transthoracic echo (TTE) complete Echocardiography Routine Nonrheumatic aortic valve stenosis Expected: 05/30/2025 (Approximate), Expires: 04/22/2027 Transthoracic echo (TTE) limited Echocardiography Routine Nonrheumatic aortic valve stenosis Expected: 04/29/2025 (Approximate), Expires: 04/22/2027 documented as of this encounter Visit Diagnoses Diagnosis Nonrheumatic aortic valve stenosis- Primary Nonrheumatic aortic valve stenosis Nonrheumatic aortic valve stenosis documented in this encounter Care Teams Accounting Professor Relationship Specialty Start Date End Date Galindo Benito MD PCP - General Internal Medicine 05/12/23 documented as of this encounter
--- OUTSIDE RECORDS SUMMARY | 2025-04-25 07:14 | XMS_ITS | Clinical Summary ---
Author Organization [facility] Address [address] [place] [address] Care Team Providers Care Featheredger And Reducer Machine Name Role Phone Galindo Benito MD Primary Care Provider [phone] Monie Prado MD Unavailable Allergies No known active allergies Medications lisinopril 5 MG tablet Take 5 mg by mouth. 05/15/2023 Active Glucosamine 500 MG capsule 1 (one) time each day at the same time. 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 Encounters Date Type Department Care Team Description 03/12/2025 Clinisync Result Encounter [facility] External Department Unsolicited Provider, Generic External Data from Last 3 Months Immunizations Immunization Administration Dates Next Due Influenza, High-dose Seasona l, Quadrivalent, Preservative Free 07/26/2023 Family History Medical History Relation Name Comments Hyperlipidemia Father Kidney disease Mother Heart disease Sibling Breast cancer Neg Hx Ovarian cancer Neg Hx Relation Name Status Comments Brother Alive Father Mother Sibling Alive Sister Alive Social History Tobacco Use Types Packs/Day Years Used Date Smoking Tobacco: Never Smokeless Tobacco: Never Tobacco Cessation:Counseling Given: Yes Alcohol Use Standard Drinks/Week Comments Never 0 (1 standard drink = 0.6 oz pur e alcohol) PHQ-2 Answer Date Recorded Patient Health Questionnaire-2 Score 0 12/04/2024 Sex and Gender Information Value Date Recorded Sex Assigned at Not on file Legal Sex Male 7:02 PM EDT Gender Identity Not on file Sexual Orientation Not on file Last Filed Vital Signs Vital Sign Reading Time Taken Comments Blood Pressure 124/76 12/04/2024 9:01 AM EST Pulse 87 12/04/2024 9:01 AM EST Temperature - - Respiratory Rate 17 12/04/2024 9:01 AM EST Oxygen Saturation 94% 12/04/2024 9:01 AM EST Inhaled Oxygen Concentration - - Weight 76.7 kg (169 lb) 12/04/2024 9:01 AM EST Height 165.1 cm (5' 5 ) 12/04/2024 9:01 AM EST Body Mass Index 28.12 12/04/2024 9:01 AM EST Plan of Treatment Health Maintenance Due Date Last Done Comments Diabetes: Retinopathy Screening 11/28/2019 8 Diabetes: Hemoglobin A1C 03/03/2025 025, 01/19/2022, 07/14/2021, Additional history exists Influenza Vaccine (#1) 2025 4, 07/26/2023, 09/10/2022, Additional history exists Diabetes: Urine Protein Screening 12/04/2025 025 Medicare Annual Wellness (AWV) 12/04/2025 12/04/2024 , 07/26/2023 Pneumococcal Vaccine: 65+ Years Completed 01/13/2021, 07/20/2015, 08/07/2014 Procedures Procedure Name Priority Date/Time Associated Diagnosis Comments ALL BASIC METABOLIC PANEL Routine 03/12/2025 2:41 PM EDT ALL CBC WITH AUTO DIFF Routine 03/12/2025 2:41 PM EDT MICROALBUMIN / CREATININE URINE RATIO Routine 12/04/2024 9:27 AM EST Type 2 diabetes mellitus without complications (HCC) HEMOGLOBIN A1C Routine 12/04/2024 9:27 AM EST Type 2 diabetes mellitus without complications (HCC) COLOR FUNDUS PHOTOGRAPHY - OU - BOTH EYES Routine 11/28/2017 12:00 PM EST from Last 3 Months or Most Recently Relevant to Health Maintenance Results * (ABNORMAL) ALL CBC WITH AUTO DIFF (03/12/2025 2:41 PM EDT) [facility] TB WBC 8.1 4.0 - 11.0 10 3/uL TBH TBH RBC 3.98(L) 4.70 - 6.10 10 6/uL TBH TBH HGB 13.1(L) 14.0 - 18.0 g/dL TBH TBH HCT 37.6(L) 42.0 - 54.0 % TBH TBH MCV 94.5(H) 80.0 - 94.0 fL TBH TBH MCH 32.9 25.9 - 34.0 pg TBH TBH MCHC 34.8 29.9 - 35.2 g/dL TBH TBH RDW 12.7 11.0 - 15.0 % TBH TBH PLT 213 150 - 450 10 3/uL TBH TBH MPV 9.8 9.5 - 13.5 fL TBH NEUTROPHILS PERCENT AUTO 38.8(L) 43.0 - 75.0 % TBH LYMPHOCYTES PERCENT AUTO 40.4 20.5 - 60.0 % TBH MONOCYTES PERCENT AUTO 10.6 1.7 - 12.0 % TBH TBH EO % 8.9(H) 0.9 - 7.0 % TBH BASOPHILS PERCENT AUTO 1.1 0.2 - 2.0 % TBH IMMATURE GRANULOCYTES PCT AUTO 0.2 0.0 - 0.5 % TBH NEUTROPHILS ABSOLUTE AUTO 3.1 1.4 - 6.5 10 3/uL TBH LYMPHOCYTES ABSOLUTE AUTO 3.3 1.2 - 3.8 10 3/uL TBH MONOCYTES ABSOLUTE AUTO 0.9(H) 0.3 - 0.8 10 3/uL TBH TBH EO # 0.7 0.0 - 0.7 10 3/uL TBH BASOPHILS ABSOLUTE AUTO 0.1 0.0 - 0.1 10 3/uL TBH IMMATURE GRANULOCYTES ABS AUTO 0.02 0.00 - 0.03 10 3/uL TBH 03/12/2025 2:41 PM EDT 03/12/2025 2:44 PM EDT Narrative CLINISYNC - 03/12/2025 2:47 PM EDT Generic External Data Provider SCOTT whitlock Result Performing Organization Address [facility] de Phone Number SCOTT TB * (ABNORMAL) ALL BASIC METABOLIC PANEL (03/12/2025 2:41 PM EDT) SODIUM 142 136 - 145 mmol/L TBH POTASSIUM 4.0 3.5 - 5.1 mmol/L TBH CHLORIDE 106 98 - 107 mmol/L TBH CARBON DIOXIDE 27.9 21.0 - 32.0 mmol/L TBH ANION GAP 12.1 TBH GLUCOSE 121(H) 74 - 106 mg/dL TBH BLOOD UREA NITROGEN 18.0 7.0 - 18.0 mg/dL TBH CREATININE 0.96 0.70 - 1.30 mg/dL TBH TBH EGFR-AF KITTITIAN >60 >=60 mL/min/1.7 3m 2 TBH TBH EGFR-NON AF KITTITIAN >60 >=60 mL/min/1.7 3m 2 TBH BUN CREATININE RATIO 18.8 TBH CALCIUM 8.8 8.5 - 10.1 mg/dL TBH 03/12/2025 2:41 PM EDT 03/12/2025 2:44 PM EDT Narrative SCOTT - 03/12/2025 3:18 PM EDT Generic External Data Provider SCOTT whitlock Result Performing Organization Address [facility] de Phone Number SCOTT TB * Microalbumin / creatinine, urine ratio (12/04/2024 9:27 AM EST) CREATININE, RANDOM URINE 153 20 - 320 mg/dL [facility] ALBUMIN, URINE 0.9 See Note: mg/dL [facility] Comment: Reference Range: Reference Range Not established ALBUMIN/CREATININE RATIO, RANDOM URINE 6 <30 mg/g creat [facility] Comment: The ADA defines abnormalities in albumin excretion as follows: Albuminuria Category Result (mg/g creatinine) Normal to Mildly increased <30 Moderately increased 30-299 Severely increased > OR = 300 The ADA recommends that at least two of three specimens collected within a 3-6 month period be abnormal before considering a patient to be within a diagnostic category. Urine Urine specimen obtained by clean catch procedure / Unknown 12/04/2024 9:27 AM EST 12/04/2024 9:27 AM EST Narrative [facility] - 12/05/2024 11:14 AM EST FASTING:YES FASTING: YES Resulting Agency Comment Performing Organization Information Site ID: [id number] Name: [facility] Address: [address] , [address] [place] [address] Director: Eugene Chandra MD Briana Bacon ACCOUNTS PAYABLE TECHNICIAN LAB URINE ORDERABLES Final R esult Performing Organization Address [facility] de Phone Number [facility] * (ABNORMAL) Hemoglobin A1c (12/04/2024 9:27 AM EST) Hemoglobin A1C 6.7(H) <5.7 % of total Hgb [facility] Comment: For someone without known diabetes, a [...] A1c for diagnosis of diabetes for children. Blood Venous blood specimen / Unknown 12/04/2024 9:27 AM EST 12/04/2024 9:27 AM EST Narrative [facility] - 12/05/2024 11:14 AM EST FASTING:YES FASTING: YES Resulting Agency Comment Performing Organization Information Site ID: [id number] Name: [facility] Address: [address] , [address] [place] [address] Director: Eugene Chandra MD Briana Bacon NP LAB BLOOD ORDERABLES Final R esult Performing Organization Address [facility] de Phone Number [facility] * Color Fundus Photography - OU - Both Eyes (11/28/2017 12:00 PM EST) Anatomical Region Laterality Modality Head Fundus Photograp hy 11/28/2017 12:0 0 PM EST Narrative 11/28/2017 12:00 PM EST PERFORMED AT [facility] LOCATION:[id number] NO retinopathy Procedure Note CONVERSION, GENERIC - 02/22/2023 PERFORMED AT [facility] LOCATION:[id number] NO retinopathy Galindo Benito MD OPHTH PHOTOGRAPHY Final Result from Last 3 Months or Most Recently Relevant to Health Maintenance Insurance [employer] MED[employer]ARE [employer]VANTAGE Care Teams Featheredger And Reducer Machine Relationship Specialty Start Date End Date Galindo Benito MD [address] [facility] [address] [place] [address] PCP - General Internal Medicine 02/14/23 Monie Prado MD [address] [facility] [address] [place] [address] PCP - [employer] 10/09/21
--- OUTSIDE RECORDS SUMMARY | 2025-04-25 07:14 | XMS_ITS | Encounter Summary ---
Author Organization [facility] Address [address] [place] [address] Care Team Providers Care High Rigger Name Role Phone Galindo Benito MD Primary Care Provider [phone] Encounter Details Date Type Department Care Team (Late st Contact Info) Description 04/24/2025 Orders Only [facility] [address] [facility] [place] [address] Tami Chakraborty RN Aortic valve stenosis (Primary Dx) Social History Tobacco Use Types Packs/Day Years Used Date Smoking Tobacco: Never Smokeless Tobacco: Never Alcohol Use Standard Drinks/Week Comments Not Currently 0 (1 standard drink = 0.6 oz pur e alcohol) [place] Safety & Environment Answer Date Rec orded [...] Description 04/29/2025 10:00 AM EDT Hospital Encounter [facility] [address] [place] [address] Richard Stevens MD [address] [facility] [address] [place] [address] Nonrheumatic aortic valve stenosis 04/29/2025 10:30 AM EDT Appointment [facility] [place] [facility] [address] [place] [address] 04/29/2025 12:00 PM EDT - 04/29/2025 2:00 PM EDT Surgery [facility] Lab [address] [place] [address] Richard Stevens MD [address] [facility] [address] [place] [phone] TAVR 05/30/2025 2:30 PM EDT Appointment [facility] Vascular [place] [facility] [address] [place] [address] Scheduled Orders Name Type Priority Associated Diagnoses Orde r Schedule CBC Lab Routine Aortic valve stenosis Expected: 04/24/2025 (Approximate), Expires: 04/24/2026 Basic metabolic panel Lab Routine Aortic valve stenosis Expected: 04/24/2025 (Approximate), Expires: 04/24/2026 documented as of this encounter Visit Diagnoses Diagnosis Aortic valve stenosis- Primary Aortic valve disorders Nonrheumatic aortic valve stenosis Aortic valve stenosis- Primary Aortic valve disorders Nonrheumatic aortic valve stenosis documented in this encounter Care Teams High Rigger Relationship Specialty Start Date End Date Galindo Benito MD PCP - General Internal Medicine 05/12/23 documented as of this encounter
--- OUTSIDE RECORDS SUMMARY | 2025-04-25 07:14 | XMS_ITS | Encounter Summary ---
Author Organization [facility] Address [address] [facility] [place] [address] Care Team Providers Care Dental Laboratory Manager Name Role Phone Galindo Benito MD Primary Care Provider [phone] Monie Prado MD Unavailable Encounter Details Date Type Department Care Team (Late st Contact Info) Description 07/26/2023 Abstract [facility] [address] [facility] [address] [place] [phone] Briana Bacon, RESIZER OPERATOR [address] [facility] 110 [place] [address] Social History Tobacco Use Types Packs/Day Years Used Date Smoking Tobacco: Never Smokeless Tobacco: Never Tobacco Cessation:Counseling Given: Not Answered Alcohol Use Standard Drinks/Week Comments Never 0 (1 standard drink = 0.6 oz pur e alcohol) Sex and Gender Information Value Date Recorded Sex Assigned at Not on file Legal Sex Male 7:02 PM EDT Gender Identity Not on file Sexual Orientation Not on file documented as of this encounter Functional Status * Over the past 2 weeks, how often have you been bothered by any of the following problems? Question Answer Date of Assessment Author Little interest or pleasure in doing things Not at all 07/26/2023 8:00 AM LEOT BERENICE FARAH Feeling down, depressed, or hopeless Not at all 07/09 8:00 AM EDT BERENICE FARAH Patient Health Questionnaire-2 Score 0 07/09 8:00 AM EDT BERENICE FARAH * Question Answer Date of Assessment Author Trouble falling or staying a sleep, or sleeping too much Not at all 07/26/2023 8:00 AM EDT BERENICE FARAH Feeling tired or having little energy Not at all 8:00 AM EDT BERENICE FARAH Poor appetite or overeating Not at all 07/26/2023 8: 00 AM EDT BERENICE FARAH Feeling bad about yourself - or that you are a failure or have let yourself or your family down Not at all 07/26/2023 8:00 AM EDT BERENICE FARAH Trouble concentrating on thi ngs, such as reading the newspaper or watching television Not at all 07/26/2023 8:00 AM EDT BERENICE FARAH Moving or speaking so slowly that other people could have noticed? Or the opposite - being so fidgety or restless that you have been moving around a lot more than usual. Not at all 07/26/2023 8:00 AM EDT BERENICE FARAH Thoughts that you would be b dmitriy off or hurting yourself in some way Not at all 07/26/2023 8:00 AM EDT BERENICE FARAH Patient Health Questionnaire-9 Score 0 07/09 8:00 AM EDT BERENICE FARAH documented as of this encounter Plan of Treatment Not on file documented as of this encounter Visit Diagnoses Not on filedocumented in this encounter Additional Health Concerns Assessment Noted Time PHQ-9 Depression Total Score: 0 07/26/20 8:00 AM EDT documented as of this encounter Care Teams Dental Laboratory Manager Relationship Specialty Start Date End Date Galindo Benito MD [address] [facility] 110 [place] [address] PCP - General Internal Medicine 02/14/23 Monie Prado MD [address] [facility] 110 [place] [address] PCP - [employer] 10/09/21 documented as of this encounter
--- OUTSIDE RECORDS SUMMARY | 2025-04-25 07:14 | XMS_ITS | Encounter Summary ---
Author Organization [facility] Address [address] [facility] [place] [address] Care Team Providers Care Benzene Operator Name Role Phone Galindo Benito MD Primary Care Provider [phone] Monie Prado MD Unavailable Encounter Details Date Type Department Care Team (Late st Contact Info) Description 08/01/2023 Abstract [facility] [address] [facility] [address] [place] [phone] Galindo Benito MD [address] [facility] 110 [place] [address] Social History Tobacco Use Types Packs/Day Years Used Date Smoking Tobacco: Never Smokeless Tobacco: Never Alcohol Use Standard Drinks/Week Comments Never 0 [...] Time PHQ-9 Depression Total Score: 0 07/26/20 23 8:00 AM EDT documented as of this encounter Care Teams Benzene Operator Relationship Specialty Start Date End Date Galindo Benito MD [address] [facility] [address] [place] [address] PCP - General Internal Medicine 02/14/23 Monie Prado MD [address] [facility] [address] [place], [place] [phone] CARLOS A - Raven 10/09/21 documented as of this encounter
--- OUTSIDE RECORDS SUMMARY | 2025-04-25 07:14 | XMS_ITS | Encounter Summary ---
Author Organization [facility] Address [address] [place] [facility] [place] [address] Care Team Providers Care Electronic Engineering Draftsperson Name Role Phone Galindo Benito MD Primary Care Provider [phone] Monie Prado MD Unavailable Encounter Details Date Type Department Care Team (Late st Contact Info) Description 02/20/2024 Abstract [facility] [address] [place] [address] [place] [phone] Galindo Benito MD [address] [facility] 110 [place], [place] [id number] Social History Tobacco Use Types Packs/Day Years [...] documented as of this encounter Care Teams Electronic Engineering Draftsperson Relationship Specialty Start Date End Date Galindo Benito MD [address] [facility] 110 [place] [address] PCP - General Internal Medicine 02/14/23 Monie Prado MD [address] [facility] [address] [place], [place] [phone] CARLOS A - Raven 10/09/21 documented as of this encounter
--- OUTSIDE RECORDS SUMMARY | 2025-04-25 07:14 | XMS_ITS | Encounter Summary ---
Author Organization [facility] Address [address] [place] [address] Care Team Providers Care Irradiated Fuel Handler Name Role Phone Galindo Benito MD Primary Care Provider [phone] Encounter Details Date Type Department Care Team (Latest Contact Info) Description 04/24/2025 Travel Social History Tobacco Use Types Packs/Day Years Used Date Smoking Tobacco: Never Smokeless Tobacco: Never Alcohol Use Standard Drinks/Week Comments Not Currently 0 (1 standard drink = 0.6 oz pur e alcohol) [place] Safety & Environment Answer Date Rec orded [...] Description 04/29/2025 10:00 AM EDT Hospital Encounter [facility] Heart [facility] Vascular Lab [address] [place] [address] Richard Stevens MD [address] [facility] [address] [facility] [place] [address] Nonrheumatic aortic valve stenosis 04/29/2025 10:30 AM EDT Appointment [facility] Heart and [facility] Heart Station [address] [place] [address] 04/29/2025 12:00 PM EDT - 04/29/2025 2:00 PM EDT Surgery [facility] Heart [facility] Vascular [place] [facility] [address] [place] [address] Richard Stevens MD [address] [facility] [address] [facility] [place] [address] TAVR 05/30/2025 2:30 PM EDT Appointment [facility] Heart [facility] Vascular [place] Heart Station [address] [place] [address] documented as of this encounter Visit Diagnoses Not on filedocumented in this encounter Care Teams Irradiated Fuel Handler Relationship Specialty Start Date End Date Galindo Benito MD PCP - General Internal Medicine 05/12/23 documented as of this encounter
--- OUTSIDE RECORDS SUMMARY | 2025-04-25 07:14 | XMS_ITS | Encounter Summary ---
Author Organization [facility] Address [address] [facility] [place] [address] Care Team Providers Care Automatic Splicing Machine Operator Name Role Phone Galindo Benito MD Primary Care Provider [phone] Monie Prado MD Unavailable Encounter Details Date Type Department Care Team (Late st Contact Info) Description 04/08/2024 Abstract [facility] [address] [facility] 110 [place] [phone] Galindo Benito MD [address] [facility] 110 [place], [place] [phone] Social History Tobacco Use Types Packs/Day Years [...] documented as of this encounter Care Teams Automatic Splicing Machine Operator Relationship Specialty Start Date End Date Galindo Benito MD [address] [facility] 110 [place] [address] PCP - General Internal Medicine 02/14/23 Monie Prado MD [address] [facility] 110 [place], [place] [phone] CARLOS A - Raven 10/09/21 documented as of this encounter
--- OUTSIDE RECORDS SUMMARY | 2025-04-25 07:14 | XMS_ITS | Encounter Summary ---
Author Organization [facility] Address [address] [facility] [place] [address] Care Team Providers Care Kickboxing Instructor Name Role Phone Galindo Benito MD Primary Care Provider [phone] Monie Prado MD Unavailable Encounter Details Date Type Department Care Team (Late st Contact Info) Description 08/01/2023 Abstract [facility] [address] [facility] [address] [place] [id number] Galindo Benito MD [address] [facility] 110 [place] [address] Social History Tobacco Use Types Packs/Day Years [...] documented as of this encounter Care Teams Kickboxing Instructor Relationship Specialty Start Date End Date Galindo Benito MD [address] [facility] 110 [place] [address] PCP - General Internal Medicine 02/14/23 Monie Prado MD [address] [facility] [address] [place], [place] [id number] CARLOS A - Raven 10/09/21 documented as of this encounter
--- OUTSIDE RECORDS SUMMARY | 2025-04-25 07:14 | XMS_ITS | Encounter Summary ---
Author Organization [facility] Address [address] [facility] [place] [address] Care Team Providers Care Burnisher Name Role Phone Galindo Benito MD Primary Care Provider [phone] Monie Prado MD Unavailable Encounter Details Date Type Department Care Team (Late st Contact Info) Description 12/04/2024 Abstract [facility] [address] [facility] [address] [place] [id number] Galindo Benito MD [address] [facility] [address] [place], [place] [id number] Social History Tobacco Use Types Packs/Day Years [...] pleasure in doing things Not at all 12/04/2024 8:00 AM SEFERINO DAUGHERTY Feeling down, depressed, or hopeless Not at all 11/10 8:00 AM SEFERINO DAUGHERTY Patient Health Questionnaire-2 Score 0 11/10 8:00 AM SEFERINO DAUGHERTY documented as of this encounter Plan of Treatment Not on file documented as of this encounter Visit Diagnoses Not on filedocumented in this encounter Additional Health Concerns Assessment Noted Time PHQ-9 Depression Total Score: 0 07/26/20 8:00 AM EDT documented as of this encounter Care Teams Burnisher Relationship Specialty Start Date End Date Galindo Benito MD [address] [facility] 110 [place] [address] PCP - General Internal Medicine 02/14/23 Monie Prado MD [address] [address] PCP - [employer] 10/09/21 documented as of this encounter
--- OUTSIDE RECORDS SUMMARY | 2025-04-25 07:14 | XMS_ITS | Clinical Summary ---
Author Organization [facility] Address [address] [place] [address] Care Team Providers Care Assistant Men'S Soccer Coach Name Role Phone Galindo Benito MD Primary Care Provider [phone] Allergies No known active allergies Medications lisinopril 5 mg tabletIndication s:Benign essential HTN Take 1 tablet (5 mg) by mouth in the morning. 90 tablet 3 02/17/2025 Active atorvastatin (Lipitor) 20 mg tabletIndication s:Coronary artery disease of [place] artery of [place] heart with stable angina pectoris Take 1 tablet (20 mg) by mouth in the morning. 90 tablet 3 03/18/2025 6 Active Active Problems Problem Noted Date Diagnosed Date Cellulitis of left leg without foot 06/18/2024 Contact dermatitis 06/18/2024 Midsystolic murmur 07/24/2023 Pure hypercholesterolemia 07/24/2023 Ascending aortic aneurysm 05/15/2023 Overview (05/15/2023): moderate by echo and mild by ct -In [address] 4[address]1 ; [address] 4.3 -05/2020: ECHO ascending 4.04, root 4.37cm; CT: 4.1cm -ECHO 05/2022: AoRoot 4.65cm, AsAo 4.0cm Assessment & Plan (06/19/2024 1:37 PM EDT): Images from the original note were not included. Thoracic aneurysm remains stable without significant widening since last TTE- HTN well controlled Continue lisinopril. -In [address] 4[address]1 ; [address] 4[address] -05/2020: ECHO ascending 4.04, root 4.37cm; CT: 4.1cm -ECHO 05/2022: AoRoot 4.65cm, AsAo 4.0cm - Assessment & Plan (05/15/2023 9:23 AM EDT): Images from the original note were not included. Remains stable without widening per recent echo HTN well controlled and pt states at home b/p is typically 120's/70's Recent echo Benign essential HTN 05/15/2023 Assessment & Plan (06/19/2024 1:37 PM EDT): Hypertension is well controlled, renal function stable and continue lisinopril. Lightheadedness/dizziness resolved after reducing dose at last visit. Assessment & Plan (05/15/2023 9:24 AM EDT): Hypertension is well controlled, lisinopril script sent and renal function remains stable Continue lisinopril Mitral valve regurgitation 05/15/2023 Assessment & Plan (05/15/2023 9:27 AM EDT): No concerning symptoms F/U with routine echocardiogram D/W pt to call office for any concerning symptoms- palpitations, lightheadedness/dizziness, syncope, chest pain, dyspnea or orthopnea and he voiced understanding. Aortic valve stenosis 05/15/2023 Assessment & Plan (06/19/2024 1:35 PM EDT): Current echo reviewed with and noted aortic stenosis has went from mild to moderate- he remains asymptomatic. D/W pt to call office for chest pain, SOB, palpitations, lightheadedness/dizziness or syncope and he voiced understanding. 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 05/15/2023 05/15/2023 Family history of malignant neoplasm of prostate 05/15/2023 05/15/2023 Glycosuria 05/15/2023 05/15/2023 Hemorrhoids 05/15/2023 05/15/2023 History of renal calculi 05/15/2023 023 Perineal pain 05/15/2023 05/15/2023 Prostatic pain 05/15/2023 05/15/2023 Abdominal aortic aneurysm 04/26/20222022 Arthritis 03/24/2017 05/15/2023 Diabetes mellitus 03/24/2017 05/15/2023 Overview (05/15/2023): Removal Reason: Patient states he has never been diabetic Edema of lower extremity 03/24/2017 023 Heart murmur 03/24/2017 05/15/2023 Hemorrhage in optic nerve sheaths 03/24/2017 05/15/2023 History of colonic polyps 03/24/20172022 Hyperlipidemia 03/24/2017 05/15/2023 Assessment & Plan (05/15/2023 9:25 AM EDT): Lipid abnormalities are slightly elevated with LDL 111- improved from 118 Recommended life style modifications: heart healthy diet and low cholesterol- increase/ regular exercise in light he does not want to start statin at this time. Hyperplasia of prostate 03/24/2017 05/15/20 23 Uric acid renal calculus 03/24/2017 023 Encounters Date Type Department Care Team Description 04/24/2025 Travel 04/24/[address] [facility] Heart [facility] Vascular Center Vascular Lab [address] [facility] [place] [address] Tami Chakraborty, RN Aortic valve stenosis (Primary Dx) 04/22/2025 Orders Only [facility] Cardiology Clinic [address] [facility] [place] [address] Geovanna Jason CNP Nonrheumatic aortic valve stenosis (Primary Dx) 04/05/2025 Orders Only [facility] [place] [facility] [address] [place] [address] Geovanna Jason CNP 04/01/2025 3:30 PM EDT Consult [facility] Heart and Vascular Cardiothoracic Surgery Center [address] [place] [address] Maria Fernanda Navas CNP Nonrheumatic aortic valve stenosis 04/01/2025 12:57 PM EDT - 04/01/2025 11:59 PM EDT Hospital Encounter [facility] Vascular Ultrasound Imaging [address] [place] [phone] Nonrheumatic aortic valve stenosis; Other disorders of arteries, arterioles and capillaries in diseases classified elsewhere Discharge Disposition: Home or Self Care () 03/26/2025 - 03/26/2025 11:59 PM EDT Hospital Encounter [facility] Radiology External Films [address] [place] [phone] Discharge Disposition: Home or Self Care () 03/26/2025 Telephone [facility] Cardiology Clinic [address] [place] [address] Sally Escoto MA 03/20/2025 Orders Only [facility] Cardiology Clinic [address] [place] [address] Geovanna Jason CNP Nonrheumatic aortic valve stenosis (Primary Dx); Other disorders of arteries, arterioles and capillaries in diseases classified elsewhere 03/18/2025 10:00 AM EDT - 03/18/2025 11:00 AM EDT Surgery [facility] Heart [facility] Vascular Lab [place] [address] Richard Stevens MD Coronary angiography 03/18/2025 9:12 AM EDT - 03/18/2025 1:03 PM EDT Hospital Encounter [facility] Heart [facility] Vascular [place] [facility] [address] [place] [address] Richard Stevens MD Coronary artery disease of [place] artery of [place] heart with stable angina pectoris (Primary Dx); Nonrheumatic aortic valve stenosis; Nonrheumatic mitral valve regurgitation Discharge Disposition: Home or Self Care () 03/18/2025 Travel 03/12/2025 Travel 02/28/[address] [facility] AUTHORIZATION DEPARTMENT [address] [place] [address] Richard Stevens MD 02/17/2025 9:30 AM EDT Office Visit [facility] Heart at [facility] [address] [place] [address] Richard Stevens MD Nonrheumatic aortic valve stenosis (Primary Dx); Nonrheumatic mitral valve regurgitation; Aneurysm of ascending aorta without rupture; Benign essential HTN; Bicuspid aortic valve; Mitral valve prolapse from Last 3 Months Family History Medical History Relation Name Comments Coronary artery disease Brother Aneurysm Father Hyperlipidemia Father Kidney disease Mother Cancer Sister Coronary artery disease Sister Relation Name Status Comments Brother Alive Father Mother Sister Social History Tobacco Use Types Packs/Day Years Used Date Smoking Tobacco: Never Smokeless Tobacco: Never Tobacco Cessation:Counseling Given: Not Answered Alcohol Use Standard Drinks/Week Comments Not Currently 0 (1 standard drink = 0.6 oz pur e alcohol) OR Safety & Environment Answer Date Rec orded [...] Sign Reading Time Taken Comments Blood Pressure 131/77 04/01/2025 2:23 PM EDT Pulse 61 04/01/2025 2:23 PM EDT Temperature - - Respiratory Rate 18 04/01/2025 2:23 PM EDT Oxygen Saturation 97% 04/01/2025 2:23 PM EDT Inhaled Oxygen Concentration - - Weight 76.7 kg (169 lb) 04/01/2025 2:23 PM EDT Height 165.1 cm (5' 5 ) 04/01/2025 2:23 PM EDT Body Mass Index 28.12 04/01/2025 2:23 PM EDT Plan of Treatment Upcoming Encounters Date Type Department Care Team (Late st Contact Info) Description 04/29/2025 10:00 AM EDT Hospital Encounter [facility] Vascular [place] [facility] [address] [facility] [place] [address] Richard Stevens MD [address] [place] [phone] Nonrheumatic aortic valve stenosis 04/29/2025 10:30 AM EDT Appointment [facility] Heart [facility] Vascular [place] [facility] [address] [place] [address] 04/29/2025 12:00 PM EDT - 04/29/2025 2:00 PM EDT Surgery [facility] Heart [facility] Vascular [place] [facility] [address] [place] [address] Richard Stevens MD [address] [place] [address] TAVR 05/30/2025 2:30 PM EDT Appointment [facility] Heart Station [address] [place] [address] Health Maintenance Due Date Last Done Comments Medicare Annual Wellness (AWV) 1940 Diabetes: Retinopathy Screening 1950 Depression Screening 1953 Adult Tetanus 1963 COVID-19 Vaccine ( season) 2024 07/30/2024, 08/28/2023, 07/26/2022, Additional history exists Diabetes: Hemoglobin A1C 03/03/2025 12/04/2024 Influenza Vaccine (#1) 2025 , 07/26/2023, 09/10/2022, Additional history exists Diabetes: Urine Protein Screening 12/04/2025 12/04/2024 Fall Risk Screening 04/01/2026 04/01/2025 Zoster Vaccines Completed 07/05/2019, 04/28/2019 Pneumococcal Vaccine: 50+ Years Completed 01/13/2021, 07/20/2015 HIB Vaccines Aged Out No longer eligi ble based on patient's age to complete this topic HPV Vaccines Aged Out No longer eligi ble based on patient's age to complete this topic IPV Vaccines Aged Out No longer eligi ble based on patient's age to complete this topic Meningococcal B Vaccine Aged Out No l onger eligible based on patient's age to complete this topic Meningococcal Vaccine Aged Out No zackery vern eligible based on patient's age to complete this topic Rotavirus Vaccines Aged Out No longer eligible based on patient's age to complete this topic Procedures Procedure Name Priority Date/Time Associated Diagnosis Comments [facility] US CAROTID ARTERY DUPLEX BILATERAL Routine 04/01/2025 1:38 PM EDT Nonrheumatic aortic valve stenosis Other disorders of arteries, arterioles and capillaries in diseases classified elsewhere XR TRANSFER OF OUTSIDE FILMS Routine 03/26/2025 12:00 AM EDT RIGHT HEART CATH Routine 03/18/2025 11:1 0 AM EDT Nonrheumatic aortic valve stenosis Nonrheumatic mitral valve regurgitation CORONARY ANGIOGRAPHY Routine 03/18/2025 11:10 AM EDT Nonrheumatic aortic valve stenosis Nonrheumatic mitral valve regurgitation POCT HBO2% Routine 03/18/2025 10:52 AM EDT ECG 12-LEAD Routine 03/18/2025 9:45 AM EDT from Last 3 Months Results * Vascular US carotid artery duplex bilateral (04/01/2025 1:38 PM EDT) Anatomical Region Laterality Modality Neck Ultrasound 04/01/2025 1:37 PM EDT Impressions 04/02/2025 10:35 AM EDT Notes: Indications: carotid artery stenosis Dx: Nonrheumatic aortic valve stenosis [I35.0 (ICD-10-CM)]; Other disorders of arteries, arterioles and capillaries in diseases classified elsewhere [I79.8 (ICD-10-CM)] Right: Heterogeneous irregular plaque with no significant ICA spectral Doppler or color flow disturbances: ICA 52/20 cm/sec; consistent with <50% diameter reduction. Antegrade vertebral artery flow. Left: Heterogeneous irregular plaque with no significant ICA spectral Doppler or color flow disturbances: ICA 47/20 cm/sec; consistent with <50% diameter reduction. Antegrade vertebral artery flow. Notes: Indications: carotid artery stenosis Dx: Nonrheumatic aortic valve stenosis [I35.0 (ICD-10-CM)]; Other disorders of arteries, arterioles and capillaries in diseases classified elsewhere [I79.8 (ICD-10-CM)] Right: Heterogeneous irregular plaque with no significant ICA spectral Doppler or color flow disturbances: ICA 52/20 cm/sec; consistent with <50% diameter reduction. Antegrade vertebral artery flow. Left: Heterogeneous irregular plaque with no significant ICA spectral Doppler or color flow disturbances: ICA 47/20 cm/sec; consistent with <50% diameter reduction. Antegrade vertebral artery flow. Conclusions: Antegrade flow of bilateral vertebral arteries. <50% stenosis in right internal carotid artery. <50% stenosis in left internal carotid artery. Narrative 04/02/2025 10:35 AM EDT Procedure: The carotid arteries, including common carotid, internal and external carotid artery were evaluated bilaterally. This was done using real-time imaging with velocity measurement, color Doppler, and spectral analysis. The vertebral arteries were evaluated bilaterally using color ultrasound and velocity measurement. Procedure: The carotid arteries, including common carotid, internal and external carotid artery were evaluated bilaterally. This was done using real-time imaging with velocity measurement, color Doppler, and spectral analysis. The vertebral arteries were evaluated bilaterally using color ultrasound and velocity measurement. Procedure Note Judi Gr MD - 04/02/2025 Procedure: The carotid arteries, including common carotid, internal andexternal carotid artery were evaluated bilaterally. This was done usingreal-time imaging with velocity measurement, color Doppler, and spectralanalysis. The vertebral arteries were evaluated bilaterally using colorultrasound and velocity measurement. Procedure: The carotid arteries, including common carotid, internal andexternal carotid artery were evaluated bilaterally. This was done usingreal-time imaging with velocity measurement, color Doppler, and spectralanalysis. The vertebral arteries were evaluated bilaterally using colorultrasound and velocity measurement. IMPRESSION: Notes: Indications: carotid artery stenosis Dx: Nonrheumatic aortic valve stenosis [I35.0 (ICD-10-CM)]; Otherdisorders of arteries, arterioles and capillaries in diseases classifiedelsewhere [I79.8 (ICD-10-CM)] Right: Heterogeneous irregular plaque with no significant ICA spectralDoppler or color flow disturbances: ICA 52/20 cm/sec; consistent with <50%diameter reduction. Antegrade vertebral artery flow. Left: Heterogeneous irregular plaque with no significant ICA spectralDoppler or color flow disturbances: ICA 47/20 cm/sec; consistent with <50%diameter reduction. Antegrade vertebral artery flow. Notes: Indications: carotid artery stenosis Dx: Nonrheumatic aortic valve stenosis [I35.0 (ICD-10-CM)]; Otherdisorders of arteries, arterioles and capillaries in diseases classifiedelsewhere [I79.8 (ICD-10-CM)] Right: Heterogeneous irregular plaque with no significant ICA spectralDoppler or color flow disturbances: ICA 52/20 cm/sec; consistent with <50%diameter reduction. Antegrade vertebral artery flow. Left: Heterogeneous irregular plaque with no significant ICA spectralDoppler or color flow disturbances: ICA 47/20 cm/sec; consistent with <50%diameter reduction. Antegrade vertebral artery flow. Conclusions: Antegrade flow of bilateral vertebral arteries. <50% stenosis in right internal carotid artery. <50% stenosis in left internal carotid artery. Geovanna Jason CNP [facility]ASCULAR [place]EDURES Fi nal Result * XR transfer of outside films (03/26/2025 12:00 AM EDT) Narrative IMAGING - 03/26/2025 5:29 PM EDT This order has been auto-finalized and does not contain a result. Chavo Evans MD IMG XR PROCEDURES Final Result IMAGING * CORONARY ANGIOGRAPHY, RIGHT HEART CATH (03/18/2025 11:10 AM EDT) Anatomical Region Laterality Modality Other Narrative 03/18/2025 11:21 AM EDT PROCEDURE PHYSICIAN: Richard Stevens MD . Indications: Giuseppe Locke is a 84 y.o. male who was evaluated in cardiology clinic due to severe aortic valve stenosis and severe mitral regurgitation. He was referred for cardiac catheterization. Assistants: Dr Josie Steel. Procedure Performed: Bilateral selective coronary angiogram. Right heart catheterization. Access into the right internal jugular vein under ultrasound guidance. Access into the left radial artery under ultrasound guidance. Methods: Procedure was explained to the patient with risks and benefits; he signed informed consent. he was brought to the specialist employee labor relations in a fasting state. The right neck area was prepped and draped in usual fashion. Micropuncture technique was used for access under ultrasound guidance into the right internal jugular vein. A 6-Cypriot x 11 cm sheath was placed. A 6-Cypriot Butts catheter was used for right heart catheterization and measurement of pressures and calculation of cardiac output using the estimated Jazz method. Butts catheter was removed. The left wrist area was prepped and draped in usual fashion. Micropuncture technique was used for access in the left radial artery. A 6-Cypriot x 11 cm sheath was placed. Verapamil was given through the sheath, and heparin was administered intravenously. Bilateral selective coronary angiography was then performed using 6-Cypriot JL5 and JR4 diagnostic catheters. Catheters were removed. Hemostasis was achieved by TR band in the radial artery manual compression in the internal jugular vein. he tolerated the procedure well and was transferred back to the cardiovascular recovery area. Hemodynamic Data: RA: 6 RV: 27/6, 9 PA: 27/10 (17) PCWP: 10 CO: 4.46 CI: 2.42 O2 Sat: PA sat: 67%, AO sat: 96% AO: 131/74 (99) Coronary angiography: This is a right-dominant circulation. Left Main: This arises from the left coronary cusp. It bifurcates into left anterior descending and circumflex vessels. This has mild luminal irregularities but no obstructive lesions. Left anterior descending: this has 30 to 40% proximal stenosis. The mid segment at the takeoff of the septal branch has a 30% stenosis. 2 diagonal branches are seen with minimal disease. The rest of the LAD is of small caliber and free of significant disease. Circumflex: This is a non-dominant vessel. This has mild luminal irregularities but no obstructive lesions. Right coronary artery: This arises from the right coronary cusp. It is a dominant vessel. This is angiographically normal. Impression/Findings: Stable non-obstructive coronary artery disease. Normal left filling pressures. Normal right filling pressures. No pulmonary hypertension. Reduced cardiac output and cardiac index. Plan: Medical therapy for coronary artery disease. Aspirin 81 mg daily for life. Statin therapy for life. Atorvastatin 20 mg daily will be added. Consult Cardiothoracic Surgery team for opinion regarding management of valvular disease. Follow up in Cardiology Clinic. Richard Stevens MD Study Details Nonrheumatic aortic valve stenosis [I35.0]Nonrheumatic mitral valve regurgitation [I34.0] Richard Stevens MD CV CARDIAC CATH PROCEDURES F inal Result * (ABNORMAL) POC Hb02% (03/18/2025 10:52 AM EDT) Pathologist [facility] [id number]% 66.9(A) 90 - 95 % QC Pass/Fail Passed QC LOT # [id number] QC Expiration Date 73,126 SAMPLESITE nl Blood Venous blood specimen / Unknown 03/18/2025 10:52 AM EDT Narrative Guille Howe MT - 03/19/2025 7:05 AM EDT Oper [id number] Richard Stevens MD POINT OF CARE TEST ENTER/DELILAH T ORDERABLES Final Result * ECG 12 lead (03/18/2025 9:45 AM EDT) Pathologist [facility] Ventricular Rate 58 BPM GE MUSE Atrial Rate 58 BPM GE MUSE [place] Interval 264 ms GE MUSE QRS DURATION 114 ms GE MUSE QT Interval 426 ms GE MUSE QTC CALCULATION(BAZE TT) 418 ms GE MUSE P [place] -14 degrees GE MUSE R-[place] -54 degrees GE MUSE T Wave [place] -27 degrees GE MUSE 03/18/2025 9:40 AM EDT 03/18/2025 5:53 PM EDT Impressions GE MUSE - 03/18/2025 5:53 PM EDT Sinus bradycardia with 1st degree A-V block Left anterior fascicular block Minimal voltage criteria for LVH, may be normal variant ( Cohagen product ) Nonspecific ST abnormality Abnormal ECG No previous ECGs available Confirmed by Beka PACK, STEPHANIE Smart ([id number]) on 03/18/2025 5:53:55 PM Narrative Procedure Note Stephanie Pack MD - 03/18/2025 IMPRESSION: Sinus bradycardia with 1st degree A-V block Left anterior fascicular block Minimal voltage criteria for LVH, may be normal variant ( Cohagen product ) Nonspecific ST abnormality Abnormal ECG No previous ECGs available Confirmed by Beka PACK, STEPHANIE Smart ([id number]) on 03/18/2025 5:53:55 PM Richard Stevens MD ECG ORDERABLES Final Result [facility] [place] from Last 3 Months Insurance [employer] MED[employer]ARE ADVANTAGE Care Teams Assistant Men'S Soccer Coach Relationship Specialty Start Date End Date Galindo Benito MD PCP - General Internal Medicine 05/12/23
--- OUTSIDE RECORDS SUMMARY | 2025-04-25 07:14 | XMS_ITS | Encounter Summary ---
Author Organization [facility] Address [address] [place] [address] Care Team Providers Care Desktop Publishing Associate Name Role Phone Nessa Benito MD Primary Care Provider [phone] Monie Prado MD Unavailable Encounter Details Date Type Department Care Team (Late st Contact Info) Description 05/24/2024 Clinisync Result Encounter [facility] External Department Unsolicited Provider, Generic External Data Social History Tobacco Use Types Packs/Day Years [...] on file documented as of this encounter Procedures Procedure Name Priority Date/Time Associated Diagnosis Comments CA ECHO DOPPLER COMPLETE 05/24/2024 7:33 PM EDT documented in this encounter Results * CA ECHO DOPPLER COMPLETE (05/24/2024 7:33 PM EDT) Anatomical Region Laterality Modality Other 05/24/2024 7:33 PM EDT Narrative 05/24/2024 7:34 PM EDT [address] [address] Cardiology Report Signed Patient: GIUSEPPE ONEIL MR#: [id number] : 1940 Acct:[id number] Age/Sex: 83 / M ADM Date: 05/24/24 Loc: CARD Attending Dr: MICAH BERRY Ordering Physician: MICAH BERRY Date of Service: 05/24/24 Procedure(s): CA echo doppler complete Accession Number(s): [id number] cc: NESSA BENITO ; MICAH BERRY Patient Name: GIUSEPPE ONEIL MR#: [id number] : 1940 Exam Date: 05/24/2024 Ordering Doctor: MICAH BERRY ECHOCARDIOGRAM REPORT PROCEDURE: CA ECHO DOPPLER COMPLETE INDICATIONS: Aortic valve stenosis, hypertension COMPARISON: None. DESCRIPTION: COMPLETE ECHOCARDIOGRAM Real-time transthoracic echocardiography with 2D, M-mode, spectral and color flow Doppler performed. QUALITY: Technical quality was good. LEFT VENTRICLE: Normal chamber size. Mild to moderate concentric hypertrophy with proximal septal hypertrophy (sigmoid septum). Normal systolic function. LV EF: Normal left ventricular ejection fraction, (>55%). DIASTOLIC: Normal diastolic function. ATRIAL SEPTUM: Visually appears intact. LEFT ATRIUM: Mild dilatation. RIGHT ATRIUM: Normal chamber size. RIGHT VENTRICLE: Normal chamber size. Normal right ventricular systolic function. TRICUSPID VALVE: Normal mobility and thickness. No stenosis with trivial regurgitation. No evidence of pulmonary hypertension. RVSP 26 mmHg MITRAL VALVE: Normal mobility and thickness. No evidence of mitral valve stenosis. There is no mitral annular calcification. Mild mitral regurgitation. AORTIC VALVE: Normal trileaflet appearance. Mildly calcified aortic valve. Moderately diminished mobility. Doppler velocity suggests moderate aortic valve stenosis. Peak velocity 2.81 m/s, mean gradient 12 mmHg, DAVID 1.1 cm2. No aortic regurgitation. AORTIC ROOT: Aortic root is dilated (4.3 cm). The ascending aorta is mildly dilated measuring 3.8 cm. PULMONIC VALVE: Normal thickness and mobility. No stenosis. No regurgitation. PERICARDIUM: No evidence of pericardial effusion. IVC: Collapses with inspirations. PLEURA: CONCLUSION: 1. Mild to moderate concentric left ventricular hypertrophy with normal systolic function. LVEF is 55 to 60%. 2. Normal right ventricular size and systolic function. 3. Moderate aortic valve stenosis. 4. Mild mitral regurgitation. 5. Normal right-sided pressures. 6. Moderately dilated aortic root [4.3 cm] with mildly dilated ascending aorta [3.8 cm]. Adult Echocardiography Procedure Report Left Ventricle LVEDD (3.7 - 5.6 cm): 4.63 cm LVESD (2.2 - 4.0 cm): 3.38 cm LVIVS thickness (0.6 - 1.2 cm): 1.88 cm LVPW thickness (0.5 - 1.0 cm): 1.10 cm e': 0.11 m/s E - e': 7.00 LVOT Max Gradient: 1.39 mm[Hg] LVOT Area (cm2): 0.59 m/s Peak Velocity (LVOT): 0.59 m/s Mean Velocity (LVOT): 0.42 m/s LVOT Diameter 2.40 cm Left Atrium Left Atrium Systolic Dimension: 4.13 cm Mitral Valve MV E to A Ratio: 0.99 Mitral Valve A-Wave Peak Velocity: 0.76 m/s Mitral Valve E-Wave Peak Velocity: 0.76 m/s Right Ventricle Aorta AO Root Diam: 4.30 cm Ascending Ao Diam: 3.77 cm Aortic Valve AoV Area (Peak Freddy): 0.95 cm2, 1.19 cm2 AoV Area (VTI): 1.15 cm2, 1.50 cm2 Peak Velocity(Antegrade Flow): 2.23 m/s, 2.81 m/s Peak Gradient(Antegrade Flow): 19.94 mm[Hg], 31.53 mm[Hg] Mean Velocity(Antegrade Flow): 1.34 m/s, 1.42 m/s Mean Gradient(Antegrade Flow): 8.95 mm[Hg], 11.67 mm[Hg] Velocity Time Integral: 38.69 cm, 50.77 cm Tricuspid Valve Peak Velocity (Regurgitant Flow): 2.42 m/s Pulmonic Valve Mean Gradient: 1.83 mm[Hg] Mean Velocity: 0.61 m/s Peak Velocity: 0.98 m/s, 1.05 m/s Peak Gradient: 4.38 mm[Hg], 3.81 mm[Hg] Right Atrium Dictated by: Joni Stevens M.D. on 05/24/2024 at 19:27 Approved by: Joni Stevens M.D. on 05/24/2024 at 19:33 Dictated By: JONI STEVENS Signed By: 05/24/241933 DD/ 32 TD/TT: Data Analyst Etl Developer: Procedure Note Radiology, Radiologist, MD - 05/24/2024 [place] [address] Cardiology Report Signed Patient: GIUSEPPE ONEIL EMR#: [id number] : 1Acct:[id number] Age/Sex: 83 / MADM Date: 05/24/24 Loc: CARD Attending Dr: MICAH BERRY Ordering Physician: MICAH BERRY Date of Service: 05/24/24 Procedure(s): CA echo doppler complete Accession Number(s): [id number] cc: NESSA BENITO ; MICAH BERRY Patient Name: GIUSEPPE ONEIL MR#: [id number] : 1940 Exam Date: 05/24/2024 Ordering Doctor: MICAH BERRY ECHOCARDIOGRAM REPORT PROCEDURE: CA ECHO DOPPLER COMPLETE INDICATIONS: Aortic valve stenosis, hypertension COMPARISON: None. DESCRIPTION: COMPLETE ECHOCARDIOGRAM Real-time transthoracic echocardiography with 2D, M-mode, spectral and color flow Dopplerperformed. QUALITY: Technical quality was good. LEFT VENTRICLE: Normal chamber size. Mild to moderate concentric hypertrophy with proximal septal hypertrophy (sigmoid septum). Normal systolic function. LV EF: Normal left ventricular ejection fraction, (>55%). DIASTOLIC: Normal diastolic function. ATRIAL SEPTUM: Visually appears intact. LEFT ATRIUM: Mild dilatation. RIGHT ATRIUM: Normal chamber size. RIGHT VENTRICLE: Normal chamber size. Normal right ventricularsystolic function. TRICUSPID VALVE: Normal mobility and thickness. No stenosis with trivial regurgitation. No evidence of pulmonary hypertension. RVSP 26 mmHg MITRAL VALVE: Normal mobility and thickness. No evidence of mitralvalve stenosis. There is no mitral annular calcification. Mild mitral regurgitation. AORTIC VALVE: Normal trileaflet appearance. Mildly calcified aorticvalve. Moderately diminished mobility. Doppler velocity suggests moderateaortic valve stenosis. Peak velocity 2.81 m/s, mean gradient 12 mmHg, DAVID 1.1cm2. No aortic regurgitation. AORTIC ROOT: Aortic root is dilated (4.3 cm). The ascending aorta is mildly dilated measuring 3.8 cm. PULMONIC VALVE: Normal thickness and mobility. No stenosis. Noregurgitation. PERICARDIUM: No evidence of pericardial effusion. IVC: Collapses with inspirations. PLEURA: CONCLUSION: 1. Mild to moderate concentric left ventricular hypertrophy with normal systolic function. LVEF is 55 to 60%. 2. Normal right ventricular size and systolic function. 3. Moderate aortic valve stenosis. 4. Mild mitral regurgitation. 5. Normal right-sided pressures. 6. Moderately dilated aortic root [4.3 cm] with mildly dilated ascendingaorta [3.8 cm]. Adult Echocardiography Procedure Report Left Ventricle LVEDD (3.7 - 5.6 cm): 4.63 cm LVESD (2.2 - 4.0 cm): 3.38 cm LVIVS thickness (0.6 - 1.2 cm): 1.88 cm LVPW thickness (0.5 - 1.0 cm): 1.10 cm e': 0.11 m/s E - e': 7.00 LVOT Max Gradient: 1.39 mm[Hg] LVOT Area (cm2): 0.59 m/s Peak Velocity (LVOT): 0.59 m/s Mean Velocity (LVOT): 0.42 m/s LVOT Diameter 2.40 cm Left Atrium Left Atrium Systolic Dimension: 4.13 cm Mitral Valve MV E to A Ratio: 0.99 Mitral Valve A-Wave Peak Velocity: 0.76 m/s Mitral Valve E-Wave Peak Velocity: 0.76 m/s Right Ventricle Aorta AO Root Diam: 4.30 cm Ascending Ao Diam: 3.77 cm Aortic Valve AoV Area (Peak Freddy): 0.95 cm2, 1.19 cm2 AoV Area (VTI): 1.15 cm2, 1.50 cm2 Peak Velocity(Antegrade Flow): 2.23 m/s, 2.81 m/s Peak Gradient(Antegrade Flow): 19.94 mm[Hg], 31.53 mm[Hg] Mean Velocity(Antegrade Flow): 1.34 m/s, 1.42 m/s Mean Gradient(Antegrade Flow): 8.95 mm[Hg], 11.67 mm[Hg] Velocity Time Integral: 38.69 cm, 50.77 cm Tricuspid Valve Peak Velocity (Regurgitant Flow): 2.42 m/s Pulmonic Valve Mean Gradient: 1.83 mm[Hg] Mean Velocity: 0.61 m/s Peak Velocity: 0.98 m/s, 1.05 m/s Peak Gradient: 4.38 mm[Hg], 3.81 mm[Hg] Right Atrium Dictated by: Joni Stevens M.D. on 05/24/2024 at 19:27 Approved by: Joni Stevens M.D. on 05/24/2024 at 19:33 Dictated By: JONI STEVENS Signed By:05/24/241933 DD/ 32 TD/TT: Data Analyst Etl Developer: us Generic External Data Provider [facility] Final Result documented in this encounter Visit Diagnoses Not on filedocumented in this encounter Additional Health Concerns Assessment Noted Time PHQ-9 Depression Total Score: 0 07/26/20 23 8:00 AM EDT documented as of this encounter Care Teams Desktop Publishing Associate Relationship Specialty Start Date End Date Nessa Benito MD [address] [facility] [address] [place] [address] PCP - General Internal Medicine 02/14/23 Monie Prado MD [address] [facility] [address] [place] [address] PCP - [employer] 10/09/21 documented as of this encounter
--- OUTSIDE RECORDS SUMMARY | 2025-04-25 07:14 | XMS_ITS | Encounter Summary ---
Author Organization [facility] Address [address] [facility] [place] [address] Care Team Providers Care Single Pass Soil Stabilizer Operator Name Role Phone Galindo Benito MD Primary Care Provider Monie Prado MD Unavailable Encounter Details Date Type Department Care Team (Late st Contact Info) Description 05/29/2023 Abstract [facility] [address] [facility] [address] [place] [id number] Galindo Benito MD [address] [facility] [address] [place] [address] Social History Tobacco Use Types Packs/Day Years Used Date Smoking Tobacco: Never Assessed Sex and Gender Information Value Date Recorded Sex Assigned at Not on file Legal Sex Male 7:02 PM EDT Gender Identity Not on file Sexual Orientation Not on file documented as of this encounter Plan of Treatment Not on file documented as of this encounter Visit Diagnoses Not on filedocumented in this encounter Care Teams Single Pass Soil Stabilizer Operator Relationship Specialty Start Date End Date Galindo Benito MD [address] [facility] [address] [place] [address] PCP - General Internal Medicine 02/14/23 Monie Prado MD [address] [facility] [address] [place] [address] PCP - [employer] 10/09/21 documented as of this encounter
--- OUTSIDE RECORDS SUMMARY | 2025-04-25 07:14 | XMS_ITS | Encounter Summary ---
Author Organization [facility] Address [address] [facility] [place] [address] Care Team Providers Care Aircraft Engineer Name Role Phone Galindo Benito MD Primary Care Provider [phone] Monie Prado MD Unavailable Encounter Details Date Type Department Care Team (Late st Contact Info) Description 05/29/2023 Abstract [facility] [address] [facility] [address] [place] [id number] Galindo Benito MD [address] [place] [address] [place] [address] Social History Tobacco Use Types Packs/Day Years [...] on filedocumented in this encounter Care Teams Aircraft Engineer Relationship Specialty Start Date End Date Galindo Benito MD [address] [facility] [address] [place] [address] PCP - General Internal Medicine 02/14/23 Monie Prado MD [address] [facility] [address] [place] [address] PCP - [employer] 10/09/21 documented as of this encounter
--- OUTSIDE RECORDS SUMMARY | 2025-04-25 07:15 | XMS_ITS | CCD ---
Author Organization [facility] CliniSymt Care Team Providers Care Wood Gang Sawyer Name Role Phone PHYSICIAN, DEFAULT Unavailable Unavailable PHYSICIAN, DEFAULT Unavailable Unavailable DO Devonte Lambert Attending Provider PAT FAROOQ Admitting Unavailable PAT FAROOQ Attending Unavailable JEWEL, DR SZYMANSKI Primary Care Unavailable PAT FAROOQ Consulting Unavailable JANETT, DR QUINONES Admitting Unavailable JANETT, DR QUINONES Attending Unavailable DR GALINDO BENITO Primary Care Unavailable WEST, DR CHICO Medina Consulting Unavailable JANETT, DR QUINONES Consulting Unavailable PAT FAROOQ Admitting Unavailable PAT FAROOQ Attending Unavailable JEWEL, DR SZYMANSKI Primary Care Unavailable PAT FAROOQ Consulting Unavailable DO Devonte Lambert Attending Provider NO FAMILY, PHYSICIAN Primary Care Provider Unava ilable MD Liu Dawkins Attending Provider FREEMAN Benito Primary Care Provider Liu Dawkins Attending Unavailable Galindo Benito Primary Care Unavailable Liu Dawkins Admitting Unavailable ItDevonte cannon Admitting Unavailable Devonte Lambert Attending Unavailable NO FAMILY, PHYSICIAN Primary Care Unavailable Galindo Benito MD Primary Care Provider [phone] Monie Prado MD Unavailable BRIANA BACON Attending Unavailable MICAH BERRY Attending Unavailable JONI ROWLAND Attending Unavailable JONI ROWLAND Attending Unavailable JONI ROWLAND Admitting Unavailable JONI ROWLAND Attending Unavailable JOIN ROWLAND Referring Unavailable GEOVANNA RAMOS Referring Unavailable JONI ROWLAND Referring Unavailable MOJONI ARMSTRONG Referring Unavailable MOJONI ARMSTRONG Referring Unavailable CHAVO CHAVEZ Referring Unavailable EDWINA OLVERA Attending Unavailable GEOVANNA RAMOS Referring Unavailable Medications Current Medications Medication Drug Class(es) Dates Sig (Normalized) Sig (Original) Glucos Sul 5gax-Pcl-Fefkb-C-M n (Glucosamine Chondroitin) 550-30-1 mg Capsule (1 source) Start: 02-07-2023 take 1 capsule by mouth once daily Glucos Sul 6gne-Icl-Kowkb-C-M n (Glucosamine Chondroitin) 550-30-1 mg Capsule Active 1 CAP PO Daily February 07, 2023 12:00am glucosamine sulfate 500 mg oral capsule (4 sources) Glucosamine 500 MG capsule 1 (one) time each day at the same time. Active lisinopril 5 mg oral tablet (5 sources) Angiotensin Converting Enzyme Inhibitor Start: 05-15-2023 [...] Active Problems Problem Classification Problem Date Documented Date Episodic/Chronic Anal and rectal conditions (1 source) Other specified diseases of anus and rectum; Translations: [Other specified diseases of anus and rectum] Onset: 12-14-2022 Episodic Aortic; peripheral; and visceral artery aneurysms (10 sources) Abdominal aortic aneurysm, without rupture; Translations: [Aneurysm of thoracic aorta] Onset: 05-18-2022 Chronic Cardiac and circulatory congenital anomalies (2 sources) Bicuspid aortic valve; Translations: [Bicuspid aortic valve] Onset: 01-08-2025 Chronic Coronary atherosclerosis and other heart disease (2 sources) 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; Translations: [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] Onset: 03-18-2025 Chronic Diabetes mellitus without complication (4 sources) Type 2 diabetes mellitus without complication; Translations: [Type 2 diabetes mellitus without complications] Onset: 05-15-2023 12-04-2024 Chronic Disorders of lipid metabolism (13 sources) Hyperlipidemia, unspecified; Translations: [Hyperlipidemia] Onset: 11-15-2022 07-24-2023 Chronic Essential hypertension (9 sources) Essential (primary) hypertension; Translations: [Essential hypertension] Onset: 11-15-2022 07-24-2023 Chronic Heart valve disorders (8 sources) Nonrheumatic aortic (valve) stenosis; Translations: [Nonrheumatic mitral (valve) insufficiency] Onset: 05-19-2022 Chronic Hyperplasia of prostate (6 sources) Benign prostatic hypertrophy without outflow obstruction; Translations: [Benign prostatic hyperplasia without lower urinary tract symptoms] Onset: 07-24-2023 07-24-2023 Chronic Other and unspecified benign neoplasm (1 source) Personal history of colonic polyps; Translations: [Personal history of colonic polyps] Onset: 02-07-2023 Episodic Other and unspecified benign neoplasm (1 source) Benign neoplasm of transverse colon; Translations: [Benign neoplasm of transverse colon] Onset: 02-07-2023 Episodic Other circulatory disease (2 sources) Other disorders of arteries, arterioles and capillaries in diseases classified elsewhere; Translations: [Other disorders of arteries, arterioles and capillaries in diseases classified elsewhere] Onset: 04-01-2025 Chronic Other screening for suspected conditions (not mental [...] Classification Problem Date Documented Da te Episodic/Chronic Calculus of urinary tract (6 sources) Uric acid urolithiasis; Translations: [Urinary calculus, unspecified] Onset: 07-24-2023 07-24-2023 Episodic Diabetes mellitus without complication (4 sources) Impaired glucose tolerance; Translations: [Impaired glucose tolerance (oral)] Onset: 07-24-2023 07-24-2023 Episodic Heart valve disorders (6 sources) Mid-systolic murmur; Translations: [Cardiac murmur, unspecified] Onset: 10-16-2023 10-16-2023 Episodic Mood disorders (4 sources) Mood disorders Onset: 07-26-2023 07-26-2023 Unclassified (1 source) THORAC AORTC ANEURYSM W/O RUPTR UNS; Translations: [THORAC AORTC ANEURYSM W/O RUPTR UNS] Onset: 12-05-2022 Unclassified (1 source) Aneurysm of the ascending aorta, without rupture; Translations: [Aneurysm of the ascending aorta, without rupture] Onset: 06-19-2024 Results Test Name Value Interpretation Reference Range Facility Orders Onlyon 04-05-2025 Orders Only [id number] Cameron Locke s E 1940 M Date Provider Department Center 04/05/2025 GEOVANNA YUSUF HVC CARD DE [facility] Family History Problem Relation Age of Onset Kidney disease Mother Hyperlipidemia Father Aneurysm Father Coronary artery disease Sister Cancer Sister Coronary artery disease Brother Family Status - Relation Status Age at Mother Father Sister Brother Alive [facility] Consulton 04-01-2025 Consult [id number] Cameron Locke s E 1940 Date Provider Department Center 04/01/2025 113-MAY, HVCTS DE [facility] Family History Problem Relation Age of Onset Kidney disease Mother Hyperlipidemia Father Aneurysm Father Coronary artery disease Sister Cancer Sister Coronary artery disease Brother Family Status - Relation Status Age at Mother Father Sister Brother Alive Level of Service:[id number] MD OFFICE/OP CONSLTJ NEW/EST PT HIGH MDM 55 MINUTES Reason for Visit and Comments: New Patient [632] [facility] Orders Onlyon 03-20-2025 Orders Only [id number] Cameron Locke s E 1940 Date Provider Department Center 03/20/2025 GEOVANNA YUSUF HVC CARD [facility] Family History Problem Relation Age of Onset Kidney disease Mother Hyperlipidemia Father Aneurysm Father Coronary artery disease Sister Cancer Sister Coronary artery disease Brother Family Status - Relation Status Age at Mother Father Sister Brother Alive [facility] HPon 03-18-2025 H&P reviewed. The patient was examined and there are no changes to the H&P. Discussed risks, benefits, and alternative therapies with the patient, he understands and willing to proceed with RHC/coronary angiogram and possible PCI. Josie Steel MD PGY-7 Interventional Electrical Logging Operator [facility] NURSNOTEon 03-18-2025 NURSNOTE RN educated pt on d/ c instructions. This included: site care, limited physical activity, resume normal diet, future appointments, medications, and moderate sedation instructions. RN educated pt on when to notify physician and when to go to the hospital. RN provided pt with arm sling and educated pt on importance of not using arm for 24 hours for radial sites. RN encouraged pt to voice any questions or concerns, and answered any questions or concerns if pt verbalized. [facility] ALL CBC WITH AUTO DIFFon BASOPHILS ABSOLUTE AUTO 0.1 [facility] Basophils/100 WBC (Bld) 1.1 % 0.2 - 2.0 % [facility] Eosinophils/100 WBC (Bld) 8.9 % High 0.9 - 7.0 % [facility] Erythrocyte distribution width (RBC) [Ratio] 12.7 % 11.0 - 15.0 % [facility] Hematocrit (Bld) [Volume fraction] 37.6 % Low 42.0 - 54.0 % [facility] Hemoglobin (Bld) [Mass/Vol] 13.1 g/dL Low 14.0 - 18.0 g/dL [facility] IMMATURE GRANULOCYTES ABS AUTO 0.02 [facility] Immature granulocytes/100 WBC (Bld) 0.2 % 0.0 - 0.5 % [facility] Interpretation and review of laboratory results Abnormal [facility] LYMPHOCYTES ABSOLUTE AUTO 3.3 [facility] Lymphocytes/100 WBC (Bld) 40.4 % 20.5 - 60.0 % [facility] MCH (RBC) [Entitic mass] 32.9 pg 25.9 - 34.0 pg [facility] MCHC (RBC) [Mass/Vol] 34.8 g/dL 29.9 - 35.2 g/dL [facility] MCV (RBC) [Entitic vol] 94.5 fL High 80.0 - 94.0 fL [facility] MONOCYTES ABSOLUTE AUTO 0.9 High [facility] Monocytes/100 WBC (Bld) 10.6 % 1.7 - 12.0 % [facility] NEUTROPHILS ABSOLUTE AUTO 3.1 [facility] Neutrophils/100 WBC (Bld) 38.8 % Low 43.0 - 75.0 % [facility] Platelet mean volume (Bld) [Entitic vol] 9.8 fL 9.5 - 13.5 fL [facility] EO # 0.7 [facility] PLT 213 [facility] RBC 3.98 Low [facility] WBC 8.1 [facility] Abstracton 02-28-2025 Abstract [id number] Cameron Locke 1940 M Date Provider Department Center 02/28/2025 JONI BELLA [facility] Medical C Family History Problem Relation Age of Onset Kidney disease Mother Hyperlipidemia Father Aneurysm Father Coronary artery disease Sister Cancer Sister Coronary artery disease Brother Family Status - Relation Status Age at Mother Father Sister Brother Alive [facility] 02-17-2025 [facility] Cardiology - [facility] Subjective Giuseppe Locke is a 84 y.o. year old male patient being seen for follow up DADA ant CTA. Patient states he feels fine. Patient states he has occasional lightlessness with standing and exertion, no other cardiac complaints at this time. 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 Hemorrhoids History of colonic polyps History of renal calculi Hyperlipidemia Hyperplasia of prostate Perineal pain Prostatic pain Uric acid renal calculus Midsystolic murmur Pure hypercholesterolemia Cellulitis of left leg without foot Contact dermatitis Family History Problem Relation Name Age of Onset Kidney disease Mother Hyperlipidemia Father Aneurysm Father Coronary artery disease Sister Cancer Sister Coronary artery disease Brother Social History Tobacco Use Smoking status: Never Smokeless tobacco: Never Substance Use Topics Alcohol use: Not Currently HPI Giuseppe is a 84-year-old man with history of hypertension, and ascending aortic aneurysm measuring around 4.3 cm by prior echocardiogram and CT scan ([id number]). He also has aortic aneurysm that is followed by echocardiography. His transthoracic echocardiogram December 2024 showed bicuspid aortic valve with progression of stenosis to severe with a very high mean gradient and peak velocity. DVI 0.13. After last visit with me in January 2025 I proceeded with transesophageal echocardiogram. today he reports that he has been doing very well. he denies chest pain, shortness of breath, palpitations, syncope and leg edema. he has good exercise tolerance. There is no claudication. He does have lightheadedness with standing and exertion. Review of Systems Constitutional: Negative. Neurological: Positive for light-headedness. Objective Visit Vitals BP 125/85 (BP Location: Right arm, Patient Position: Sitting) Pulse 79 Ht 1.651 m (5' 5 ) Wt 76.7 kg (169 lb) SpO2 96% BMI 28.12 kg/m??? Smoking Status Never BSA 1.88 m??? Physical Exam Constitutional: Appearance: He is well-developed. He is not ill-appearing. HENT: Head: Normocephalic and atraumatic. Nose: Nose normal. Eyes: General: No scleral icterus. Pupils: Pupils are equal, round, and reactive to light. Neck: Thyroid: No thyromegaly. Vascular: No JVD. Cardiovascular: Rate and Rhythm: Normal rate and regular rhythm. Pulses: Radial pulses are 2+ on the right side and 2+ on the left side. Heart sounds: Murmur heard. Systolic (RUSB, apex) murmur is present with a grade of 3/6. No friction rub. No gallop. Pulmonary: Effort: Pulmonary effort is normal. No respiratory distress. Breath sounds: Normal breath sounds. No wheezing or rales. Chest: Chest wall: No tenderness. Abdominal: General: Bowel sounds are normal. There is no distension. Palpations: Abdomen is soft. Tenderness: There is no abdominal tenderness. Musculoskeletal: General: No swelling. Cervical back: Neck supple. Skin: General: Skin is warm and dry. Neurological: General: No focal deficit present. Mental Status: He is alert and oriented to person, place, and time. Psychiatric: Mood and Affect: Mood normal. Behavior: Behavior is cooperative. Judgment: Judgment normal. Allergies No Known Allergies Medications Current Outpatient Medications: lisinopril 5 mg tablet, Take 1 tablet (5 mg) by mouth in the morning., Disp: 90 tablet, Rfl: 3 Recent Labs Blood testing 12/04/2024: Cholesterol 201, HDL 43, LDL 134, triglycerides 128, BUN 17, creatinine 0.92, EGFR 83, potassium 4.3, LFTs normal. Hemoglobin 13.9, platelets 239. Hemoglobin A1c 6.7%. Serum creatinine 01/22/2025: 0.87, EGFR 85.6. Imaging and other tests Transesophageal echocardiogram 01/22/2025: Left Ventricle: The left ventricle is normal size. Global left ventricular systolic function is normal. The EF is 55 % visually. Left ventricular wall thickness is normal. No regional wall motion abnormality. Right Ventricle: The right ventricle appears normal in size. Right ventricular systolic function appears normal. Left Atrium: The left atrium appears normal in size. Mitral Valve: Myxomatous degeneration of the mitral valve. Flow reversal is seen in the pulmonary veins suggestive of severe mitral regurgitation. No mitral valve stenosis. There is a marked posterior mitral valve leaflet prolapse. The mitral regurgitant jet is eccentric and directed anteriorly. Aortic Valve: Bicuspid aortic valve. Mild aortic valve regurgitation. Moderate to severe aortic stenosis. Aortic Valve Measurements AV V (more content not included)... [facility] Office Visiton 02-17-2025 Follow-up visit [id number] Cameron Locke 1940 M Date Provider Department [place] 02/17/2025 JONI BELLA [facility] Family History Problem Relation Age of Onset Kidney disease Mother Hyperlipidemia Father Aneurysm Father Coronary artery disease Sister Cancer Sister Coronary artery disease Brother Family Status - Relation Status Age at Mother Father Sister Brother Alive Level of Service:[id number] MD OFFICE/OUTPATIENT ESTABLISHED HIGH MDM 40 MIN [facility] CREATININE, SERUMon 01-23-20 25 Creatinine [Mass/Vol] 0.87 mg/dL Normal 0.70-1.30 [facility] Comment on above: Performed By: #### L [id number] ####[facility] (BEAKER)[address] [place] [address] GLOMERULAR FILTRATION RATE ML/MIN/1.73 SQ M.PREDICTED 85.6 mL/min/1.73m*2 Normal >60.0 [facility] Comment on above: Result Comment: [facility]???s estimated glomerular filtration rate (eGFR) will no longer include consideration of race in its calculation. The National Kidney Foundation???s eGFR Task Force developed new recommendations for the estimation of the glomerular filtration rate in the [place] They recommend immediate implementation of the new equation refit without the race variable in all laboratories because the calculation does not include race. In addition to not including race in the calculation and reporting, it included diversity in its development, and has acceptable performance characteristics and potential consequences that do not disproportionately affect any one group of individuals. Performed By: #### L [id number] ####[facility] (FABI)[address] [place] [address] CTA ABDOMEN PELVIS W IV CONT Shala 01-22-2025 CTA ABDOMEN PELVIS W IV CONTRAST CTA ABDOMEN PELVIS W IV CONTRAST 01/22/2025 10:58 AM CLINICAL INDICATIONS: Aneurysmal dilatation of the ascending aorta. Pre-T aVR evaluation. PROTOCOL: Abdomen and pelvis CTA CONTRAST: 130 mL Omnipaque 350 TECHNIQUE: Multidetector CT angiography axial slices of the abdomen and pelvis were obtained with IV contrast. Multiplanar reformats, MIP, and volume rendered 3-D images were generated on a separate workstation and reviewed to further define anatomy and possible pathology. All CT scans at this facility use dose modulation, iterative reconstruction, and/or weight based dosing when appropriate to reduce radiation dose to as low as reasonably achievable. COMPARISON: None. FINDINGS: Lower Chest: Please refer to chest CT report from the same day for full details. ABDOMEN: Liver: Diffuse diminished enhancement of the liver and lower attenuation likely represents hepatic steatosis with no focal lesions appreciated except for small 1 cm cyst in the left lobe. Bile Ducts: Normal caliber. Gallbladder: No calcified gallstones. Normal caliber wall. Pancreas: Within normal limits. Spleen: Within normal limits. Adrenals: Within normal limits. Kidneys: Suggestion of small simple cyst in the anterior cortex of the left kidney which requires no further follow-up. Pelvis: Reproductive Organs: Metallic clips in the anterior inferior prostate from prior surgery. Few calcified phlebolith in the pelvis. Ureters: Within normal limits. Bladder: Within normal limits. Bowel: Normal caliber. Uncomplicated colonic diverticulosis. Mesenteric Lymph Nodes: No enlarged mesenteric lymph nodes. Peritoneum: No ascites or free air, no fluid collection. Vessels: Tortuous aorta with aneurysmal dilatation of the ascending aorta and atherosclerotic plaques at the aortic arch was irregular contour and tortuosity of the abdominal aorta but without aneurysm or significant vascular calcifications. IVC is right-sided and unremarkable.. Retroperitoneum: Within normal limits. Abdominal Wall: Visualized part appeared on a marked Bones: Bony spurring in the thoracic and lumbar spine suggesting spondylosis. No acute bony pathology. IMPRESSION: Uncomplicated colonic diverticulosis. Hepatic steatosis and simple cyst in the liver as well as left kidney requiring no further follow-up. Otherwise, no acute abdominal or pelvic pathology. Tortious abdominal aorta with normal appearance of the branches. No significant stenosis or occlusion. Electronically signed: Cy Marquez MD. Not Vldtd Invalid Interpretation Code [facility] Comment on above: Order Comment: TAVR protocol CTA CHEST W IV CONTRASTon CTA CHEST W IV CONTRAST CTA CHEST W IV CONTRAST 01/22/2025 10:58 AM CLINICAL INDICATIONS: Aneurysm of the ascending aorta. Pre-T aVR evaluation. PROTOCOL: Gated chest CTA examination CONTRAST: 130 mL Omnipaque 350 TECHNIQUE: Multidetector CT axial slices of the chest were obtained with IV contrast. Multiplanar reformats were performed and viewed on a separate workstation and reviewed to further define anatomy and possible pathology. All CT scans at this facility use dose modulation, iterative reconstruction, and/or weight based dosing when appropriate to reduce radiation dose to as low as reasonably achievable. COMPARISON: None. FINDINGS: Lower neck: Thyroid gland within normal limits, no supraclavicle adenopathy. Vessels: Pulmonary arteries are Within normal limits. Mild atherosclerotic changes in the aorta. and coronary arteries. Mediastinum and Ute: Small calcified subcarinal granulomatous lymph node. Small calcified right hilar granulomatous lymph node. Heart: Normal size. No pericardial effusion. Airways: Within normal limits Lungs: Small calcified granuloma in the right upper lobe. Dependent atelectasis in the visualized part of the lungs. No other parenchymal abnormalities. Pleura: Visualized part is Within normal limits. Chest Wall: Visualized part is Within normal limits. Upper Abdomen: Please refer to abdomen pelvis CT report from the same day for full details Bones: Bony spurring in the thoracic spine suggesting moderate spondylosis. Noncontrast calcium scoring part of the study revealed coarse aortic cusp grade 2 calcification with total calcium scoring of 851. T aVR measurements: 3-D volume rendered images of the aortic root and proximal ascending aorta as well as coronal reconstruction are obtained and saved. Localization of the left coronary cusp, right cusp and noncoronary cusp in axial images. Localization of the esophagus and axial image and 3-D volume rendered images. 3 cusped view, anterior view, and no [employer] MACHINE OPERATOR-CAU view are obtained. The annulus measures 31.1 x 26 mm and surface area is 6.22 squared centimeter. The perimeter is 93.9 mm. Embedded geometric suggest valve diameter of 26 mm. Height of the left coronary artery is 15.5 mm from the annulus, right coronary artery is 15.2 mm from the annulus. Left coronary sinus is 34.2 mm in diameter, right sinus 34 mm in diameter and noncoronary sinus is 38 mm. Diameter of the sinotubular junction is 38.3 mm and ascending aorta is aneurysmally dilated measuring 39 mm. Infrarenal abdominal aorta diameter is 15.6 mm. Right common iliac artery diameter is 8.7 mm, right external iliac artery is 8.7 mm and right femoral artery is 9.8 mm. Left common iliac artery diameter is 9.2 mm, left external iliac artery is 6.7 mm and left femoral artery is 7.8 mm. There is moderate tortuosity of the common and external iliac arteries bilaterally which is more prominent on the right side and is seen in the oblique 3-D volume rendered views. IMPRESSION: Suggestion of small calcified granuloma in the right upper lobe and calcified right hilar and posterior mediastinal Guiatuss lymph nodes. Total calcium scoring of 851 and great 2 coarse aortic cusp calcification T aVR measurements as listed above. Electronically signed: Cy Marquez MD. Not Vldtd Invalid Interpretation Code [facility] Comment on above: Order Comment: TAVR protocol [facility] 01-22-2025 ---- -------- Attestation signed by Musa Sheth MD at 01/22/2025 9:48 AM I personally saw and examined the patient on the same date of service as resident/fellow Dr singleton. I discussed the findings and therapeutic plan with the resident/fellow Dr Singleton. I agree with the documentation, except for any edits/updates below. Teaching Physician's Revisions: None Musa Sheth MD, [facility] -------- H&P reviewed. The patient was examined and there are no changes to the H&P. [facility] Labon 01-22-2025 Lab [id number] Cameron Locke 1940 [facility] Provider Department Center 01/22/2025 2245-[facility] C Family History Problem Relation Age of Onset Kidney disease Mother Hyperlipidemia Father Aneurysm Father Coronary artery disease Sister Coronary artery disease Brother Family Status - Relation Status Age at Mother Father Sister Brother [facility] NURSNOTEon 01-22-2025 NURSNOTE Bedside swallow stud y completed and passed. RN educated pt on d/c instructions. This included: site care, limited physical activity, resume normal diet, future appointments, medications, and moderate sedation instructions. RN educated pt on when to notify physician and when to go to the hospital. RN encouraged pt to voice any questions or concerns, and answered any questions or concerns if pt verbalized. Pt was wheeled off of unit with all of belongings. [facility] Telephoneon 01-15-2025 Telephone [id number] Cameron Locke Jory 1940 [facility] Provider Department Center 01/15/2025 Pedro-NIHARIKA COY [facility] V[facility] DE HeartVAS Family History Problem Relation Age of Onset Kidney disease Mother Hyperlipidemia Father Aneurysm Father Coronary artery disease Sister Coronary artery disease Brother Family Status - Relation Status Age at Mother Father Sister Brother [facility] HPon 01-08-2025 [facility] Cardiology - [facility] Subjective Giuseppe Locke is a 84 y.o. year old male patient being seen for 6 month follow up and results of his Echo. Patient states he has no cardiac complaints at this time. 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 Hemorrhoids History of colonic polyps History of renal calculi Hyperlipidemia Hyperplasia of prostate Perineal pain Prostatic pain Uric acid renal calculus Midsystolic murmur Pure hypercholesterolemia Cellulitis of left leg without foot Contact dermatitis Family History Problem Relation Name Age of Onset Kidney disease Mother Hyperlipidemia Father Aneurysm Father Coronary artery disease Sister Coronary artery disease Brother Social History Tobacco Use Smoking status: Never Smokeless tobacco: Never Substance Use Topics Alcohol use: Not Currently HPI Giuseppe is a 84-year-old man with history of hypertension, and ascending aortic aneurysm measuring around 4.3 cm by prior echocardiogram and CT scan ([id number]). He also has aortic aneurysm that is followed by echocardiography. today he reports that he has been doing very well. he denies chest pain, shortness of breath, palpitations, dizziness, syncope and leg edema. he has good exercise tolerance. There is no claudication. His recent echocardiogram showed bicuspid aortic valve with progression of stenosis to severe with a very high mean gradient and peak velocity. DVI 0.13. Review of Systems Constitutional: Negative. Objective Visit Vitals BP 111/71 (BP Location: Left arm, Patient Position: Sitting) Pulse 67 Ht 1.651 m (5' 5 ) Wt 76.7 kg (169 lb) SpO2 97% BMI 28.12 kg/m??? Smoking Status Never BSA 1.88 m??? Physical Exam Constitutional: Appearance: He is well-developed. He is not ill-appearing. HENT: Head: Normocephalic and atraumatic. Nose: Nose normal. Eyes: General: No scleral icterus. Pupils: Pupils are equal, round, and reactive to light. Neck: Thyroid: No thyromegaly. Vascular: No JVD. Cardiovascular: Rate and Rhythm: Normal rate and regular rhythm. Pulses: Radial pulses are 2+ on the right side and 2+ on the left side. Heart sounds: Murmur heard. Systolic (RUSB, apex) murmur is present with a grade of 3/6. No friction rub. No gallop. Pulmonary: Effort: Pulmonary effort is normal. No respiratory distress. Breath sounds: Normal breath sounds. No wheezing or rales. Chest: Chest wall: No tenderness. Abdominal: General: Bowel sounds are normal. There is no distension. Palpations: Abdomen is soft. Tenderness: There is no abdominal tenderness. Musculoskeletal: General: No swelling. Cervical back: Neck supple. Skin: General: Skin is warm and dry. Neurological: General: No focal deficit present. Mental Status: He is alert and oriented to person, place, and time. Psychiatric: Mood and Affect: Mood normal. Behavior: Behavior is cooperative. Judgment: Judgment normal. Allergies No Known Allergies Medications Current Outpatient Medications: lisinopril 5 mg tablet, Take 1 tablet (5 mg) by mouth in the morning., Disp: 90 tablet, Rfl: 3 Recent Labs Blood testing 12/04/2024: Cholesterol 201, HDL 43, LDL 134, triglycerides 128, BUN 17, creatinine 0.92, EGFR 83, potassium 4.3, LFTs normal. Hemoglobin 13.9, platelets 239. Hemoglobin A1c 6.7%. Imaging and other tests Echocardiogram 12/27/2024: CONCLUSION: 1. Moderate concentric ventricular hypertrophy with normal systolic function. Estimated LVEF is 55 to 60%. 2. Normal right ventricular size and systolic function. 3. Bicuspid aortic valve, Tyrese type I with severe stenosis and mild regurgitation. DVI 0.13, DAVID 0.5 cm2, Mean 74.77 mmHg. 4. Mild to moderate mitral regurgitation. 5. Mild tricuspid regurgitation. 6. Mildly elevated right-sided pressures. RVSP is 43 mmHg. 7. Moderately dilated aortic root [measuring 4.7 cm] and ascending aorta [measuring 4.1 cm]. 8. A transesophageal echocardiogram is recommended for further confirmation of the severity of the aortic valve stenosis. 9. A CT angiogram of the chest is recommended for further assessment of the ascending aorta. Echocardiogram 05/24/2024: CONCLUSION: 1. Mild to moderate concentric left ventricular hypertrophy with normal systolic function. LVEF is 55 to 60%. 2. Normal right ventricular size and systolic function. 3. Moderate aortic valve stenosis. 4. Mild mitral regurgitation. 5. Normal right-sided pressures. 6. Moderately dilated aortic root [4.3 cm] with mildly dilated ascending aorta [3.8 cm]. Ec (more content not included)... Normal [facility] Office Visiton 01-08-2025 Follow-up visit [id number] Cameron Locke 1940 M Date Provider Department Center 01/08/2025 JONI BELLA [facility] Family History Problem Relation Age of Onset Kidney disease Mother Hyperlipidemia Father Aneurysm Father Coronary artery disease Sister Coronary artery disease Brother Family Status - Relation Status Age at Mother Father Sister Brother Level of Service:73398 MD OFFICE/OUTPATIENT ESTABLISHED MOD MDM 30 MIN Normal [facility] ALBUMIN, RANDOM URINE W/CREA TININEon 12-05-2024 ALBUMIN, URINE 0.9 mg/dL Normal See Note: [facility] Comment on above: Result Comment: Refe rence Range: Reference Range Not established Performed By: #### 1 759, 496, 5363, 7600, 6517, 93133 #### [facility] [place] [address] Promotions Producer: Eugene Chandra MD ALBUMIN/CREATININE RATIO, RANDOM URINE [...] #### 1 759, 496, 5363, 7600, 6517, 57643 #### [facility] [place] [address] Promotions Producer: Eugene Chandra MD Creatinine (U) [Mass/Vol] 153 mg/dL Normal 20-320 [facility] Comment on above: Performed By: #### 1 759, 496, 5363, 7600, 6517, 19600 #### [facility] [place] [address] Promotions Producer: Eugene Chandra MD CBC (H/H, RBC, INDICES, WBC, PLT)on 12-05-2024 Erythrocyte distribution width (RBC) [Ratio] 12.1 % Normal 11.0-15.0 [facility] Comment on above: Performed By: #### 1 759, 496, 5363, 7600, 6517, 94386 #### [facility] [place] [address] Promotions Producer: Eugene Chandra MD Hematocrit (Bld) [Volume fraction] 41.1 % Normal 38.5-50.0 [facility] Comment on above: Performed By: #### 1 759, 496, 5363, 7600, 6517, 16447 #### [facility] [place] [address] Promotions Producer: Eugene Chandra MD Hemoglobin (Bld) [Mass/Vol] 13.9 g/dL Normal 13.2-17.1 [facility] Comment on above: Performed By: #### 1 759, 496, 5363, 7600, 6517, 62121 #### [facility] [place] [address] Promotions Producer: Eugene Chandra MD MCH (RBC) [Entitic mass] 32.3 pg Normal 27.0-33.0 [facility] Comment on above: Performed By: #### 1 759, 496, 5363, 7600, 6517, 82004 #### [facility] [place] [address] Promotions Producer: Eugene Chandra MD MCHC (RBC) [Mass/Vol] 33.8 [...] #### 1 759, 496, 5363, 7600, 6517, 62137 #### [facility] [place] [address] Promotions Producer: Eugene Chandra MD MCV (RBC) [Entitic vol] 95.4 fL Normal 80.0-100.0 [facility] Comment on above: Performed By: #### 1 759, 496, 5363, 7600, 6517, 79781 #### [facility] of [place] [address] Promotions Producer: Eugene Chandra MD Platelet mean volume (Bld) [Entitic vol] 10.4 fL Normal 7.5-12.5 [facility] Comment on above: Performed By: #### 1 759, 496, 5363, 7600, 6517, 11604 #### [facility] of [address], [address] [place] [address] Promotions Producer: Eugene Chandra MD Platelets (Bld) [#/Vol] 239 10*3/uL Normal 140-400 [facility] Comment on above: Performed By: #### 1 759, 496, 5363, 7600, 6517, 84779 #### [facility] of [place] [address] Promotions Producer: Eugene Chandra MD RBC (Bld) [#/Vol] 4.31 10*6/uL Normal 4.20-5.80 [facility] Comment on above: Performed By: #### 1 759, 496, 5363, 7600, 6517, 58548 #### [facility] of [place] [address] Promotions Producer: Eugene Chandra MD WBC (Bld) [#/Vol] 8.1 10*3/uL Normal 3.8-10.8 [facility] Comment on above: Performed By: #### 1 759, 496, 5363, 7600, 6517, 07510 #### [facility] [place] [address] Promotions Producer: Eugene Chandra MD COMPREHENSIVE METABOLIC PANE [facility] 12-05-2024 Albumin [Mass/Vol] 4.3 g/dL Normal 3.6-5.1 [facility] Comment on above: Performed By: #### 1 759, 496, 5363, 7600, 6517, 10591 #### [facility] of [address], [address] [place] [address] Promotions Producer: Eugene Chandra MD Albumin/Globulin [Mass ratio] 1.8 {ratio} Normal 1.0-2.5 [facility] Comment on above: Performed By: #### 1 759, 496, 5363, 7600, 6517, 46318 #### [facility] of [address], [address] [place] [address] Promotions Producer: Eugene Chandra MD ALP [Catalytic activity/Vol] 51 U/L Normal 35-144 [facility] Comment on above: Performed By: #### 1 759, 496, 5363, 7600, 6517, 89731 #### [facility] of [place] [address] Promotions Producer: Eugene Chandra MD ALT [Catalytic activity/Vol] 23 U/L Normal 9-46 [facility] Comment on above: Performed By: #### 1 759, 496, 5363, 7600, 6517, 31926 #### [facility] of [place] [address] Promotions Producer: Eugene Chandra MD AST [Catalytic activity/Vol] 20 U/L Normal 10-35 [facility] Comment on above: Performed By: #### 1 759, 496, 5363, 7600, 6517, 06145 #### [facility] of [place] [address] Promotions Producer: Eugene Chandra MD Bilirubin [Mass/Vol] 0.6 mg/dL Normal 0.2-1.2 [facility] Comment on above: Performed By: #### 1 759, 496, 5363, 7600, 6517, 62771 #### [facility] of [place] [address] Promotions Producer: Eugene Chandra MD BUN/CREATININE RATIO SEE NOTE: Normal 6-22 [facility] Comment on above: Result Comment: Not Reported: BUN and Creatinine are within reference range. Performed By: #### 1 759, 496, 5363, 7600, 6517, 92067 #### [facility] [place] [address] Promotions Producer: Eugene Chandra MD Calcium [Mass/Vol] 9.3 mg/dL Normal 8.6-10.3 [facility] Comment on above: Performed By: #### 1 759, 496, 5363, 7600, 6517, 46515 #### [facility] [place] [address] Promotions Producer: Eugene Chandra MD Chloride [Moles/Vol] 106 mmol/L Normal 98-110 [facility] Comment on above: Performed By: #### 1 759, 496, 5363, 7600, 6517, 21643 #### [facility] of [place] [address] Promotions Producer: Eugene Chandra MD CO2 [Moles/Vol] 27 mmol/L Normal 20-32 [facility] Comment on above: Performed By: #### 1 759, 496, 5363, 7600, 6517, 21006 #### [facility] [place] [address] Promotions Producer: Eugene Chandra MD Creatinine [Mass/Vol] 0.92 mg/dL Normal 0.70-1.22 [facility] Comment on above: Performed By: #### 1 759, 496, 5363, 7600, 6517, 76862 #### [facility] of [place] [address] Promotions Producer: Eugene Chandra MD GFR/1.73 sq M.predicted among non-blacks MDRD (S/P/Bld) [Vol rate/Area] 83 mL/min/{1.73_m2} Normal > OR = 60 [facility] Comment on above: Performed By: #### 1 759, 496, 5363, 7600, 6517, 52734 #### [facility] of [address] Promotions Producer: Eugene Chandra MD Globulin (S) [Mass/Vol] 2.4 g/dL Normal 1.9-3.7 [facility] Comment on above: Performed By: #### 1 759, 496, 5363, 7600, 6517, 89536 #### [facility] [place] [address] Promotions Producer: Eugene Chandra MD Glucose [Mass/Vol] 134 mg/dL High 65-99 [facility] Comment on above: Result Comment: Fasting reference interval For someone without known diabetes, a glucose value >125 mg/dL indicates that they may have diabetes and this should be confirmed with a follow-up test. Performed By: #### 1 759, 496, 5363, 7600, 6517, 72734 #### [facility] [place] [address] Promotions Producer: Eugene Chandra MD Potassium [Moles/Vol] 4.3 mmol/L Normal 3.5-5.3 [facility] Comment on above: Performed By: #### 1 759, 496, 5363, 7600, 6517, 38367 #### [facility] [place] [address] Promotions Producer: Eugene Chandra MD Protein [Mass/Vol] 6.7 g/dL Normal 6.1-8.1 [facility] Comment on above: Performed By: #### 1 759, 496, 5363, 7600, 6517, 58060 #### [facility] [place] [address] Promotions Producer: Eugene Chandra MD Sodium [Moles/Vol] 140 mmol/L Normal 135-146 [facility] Comment on above: Performed By: #### 1 759, 496, 5363, 7600, 6517, 09564 #### [facility] [place] [address] Promotions Producer: Eugene Chandra MD Urea nitrogen [Mass/Vol] 17 mg/dL Normal 7-25 [facility] Comment on above: Performed By: #### 1 759, 496, 5363, 7600, 6517, 38885 #### [facility] [place] [address] Promotions Producer: Eugene Chandra MD HEMOGLOBIN A1con 12-05-2024 HEMOGLOBIN [...] #### 1 759, 496, 5363, 7600, 6517, 04021 #### [facility] [place] [address] Promotions Producer: Eugene Chandra MD LIPID PANEL, STANDARDon 11-10 Cholesterol [Mass/Vol] 201 mg/dL High <200 [facility] Comment on above: Order Comment: FASTI NG:YES FASTING: YES Performed By: #### 1 759, 496, 5363, 7600, 6517, 49633 #### [facility] [place] [address] Promotions Producer: Eugene Chandra MD Cholesterol in HDL [Mass/Vol] 43 mg/dL Normal > OR = 40 [facility] Comment on above: Order Comment: FASTI NG:YES FASTING: YES Performed By: #### 1 759, 496, 5363, 7600, 6517, 59432 #### [facility] [place] [address] Promotions Producer: Eugene Chandra MD Cholesterol in LDL [Mass/Vol] [...] equation in the estimation of LDL-C. Baltazar SS et al. TUNG. 2013;310(19): 5729-1002 (http://education.[employer]/faq/WTK547) Performed By: #### 1 759, 496, 5363, 7600, 6517, 40434 #### [facility] [address], [address] [place] [address] Promotions Producer: Eugene Chandra MD Cholesterol.total/ Cholesterol in HDL [Mass ratio] 4.7 {ratio} Normal <5.0 [facility] Comment on above: Order Comment: FASTI NG:YES FASTING: YES Performed By: #### 1 759, 496, 5363, 7600, 6517, 88275 #### [facility] [address], [address] [place] [address] Promotions Producer: Eugene Chandra MD NON HDL CHOLESTEROL 158 mg/dL (calc) High <130 [facility] Comment on above: Order Comment: FASTI NG:YES FASTING: YES Result Comment: For patients with diabetes plus 1 major ASCVD risk factor, treating to a non-HDL-C goal of <100 mg/dL (LDL-C of <70 mg/dL) is considered a therapeutic option. Performed By: #### 1 759, 496, 5363, 7600, 6517, 79512 #### [facility] [address], [address] [place] [address] Promotions Producer: Eugene Chandra MD Triglyceride [Mass/Vol] 128 mg/dL Normal <150 [facility] Comment on above: Order Comment: FASTI NG:YES FASTING: YES Performed By: #### 1 759, 496, 5363, 7600, 6517, 75005 #### [facility] [address], [address] [place], [place] [address] Promotions Producer: Eugene Chandra MD PSA, TOTALon 12-05-2024 PSA, TOTAL 0.61 ng/mL Normal < OR = 4.00 [facility] Comment on above: Result Comment: The total PSA value from this assay system is standardized against the WHO standard. The test result will be approximately 20% lower when compared to the equimolar-standardized total PSA (Olive Graham). Comparison of serial PSA results should be interpreted with this fact in mind. This test was performed using the Siemens chemiluminescent method. Values obtained from different assay methods cannot be used interchangeably. PSA levels, regardless of value, should not be interpreted as absolute evidence of the presence or absence of disease. Performed By: #### 1 759, 496, 3691, 8580, 2105, 46549 #### [facility] [address], [address] [place], [place] [id number] Promotions Producer: Eugene Chandra MD Office Visiton 06-19-2024 Follow-up visit [id number] Cameron Locke 1940 M Date Provider Department [place] 06/19/2024 MICAH LOWE CARD [facility] Family History Problem Relation Age of Onset Kidney disease Mother Hyperlipidemia Father Aneurysm Father Coronary artery disease Sister Coronary artery disease Brother Family Status - Relation Status Age at Mother Father Sister Brother Level of Service:65995 MD OFFICE/OUTPATIENT ESTABLISHED LOW MDM 20 MIN Normal [facility] Messi 02-07-2023 L ---- Specimen: [id number] Received: 02/07/23 Status: JOE Chan Num: [id number] Spec Type: Surgical Subm Dr: Liu Dawkins MD Tissues: A Small Intestine - Biopsy/Polyp (HEPATIC FLEXURE POLYP) Procedures: HE/2, Gross/Micro L4 Age/ Patient Sex Location Account Attending Physician Giuseppe Locke 82/M [id number] Liu Dawkins MD SPEC NUM: [id number] RECD: 02/07/23 STATUS: JOE CHAN NUM: [id number] DAMION: 02/07/23- [facility] DR: Liu Dawkins MD ENTERED: 02/07/[address] [facility] [address]: NENITA TYPE: Surgical DEPT: S ORDERED: [...] support the above pathologic diagnosis. CPT Codes 25409 Specimen: [id number] Received: 02/07/23 Status: JOE Chan Num: [id number] Spec Type: Surgical Subm Dr: Liu Dawkins MD Tissues: A Small Intestine - Biopsy/Polyp (HEPATIC FLEXURE POLYP) Procedures: HE/2, Gross/Micro L4 Patient: Giuseppe Locke [id number] (Continued) Signed (signature on file) Joleen Dorsey MD 02/08/23 1029 [facility] Messi 12-14-2022 L ---- Specimen: [id number] Received: 12/14/22 Status: JOE Chan Num: [id number] Spec Type: Surgical Subm Dr: Devonte Lambert DO Tissues: A Small Intestine - Biopsy/Polyp (POLYP HEPATIC FLEXURE) Procedures: HE/2, Gross/Micro L4 Age/ Patient Sex Location Account Attending Physician Giuseppe Locke/Elidia FINNEGAN [id number] Devonte Lambert DO SPEC NUM: [id number] RECD: 12/14/22 STATUS: JOE CHAN NUM: [id number] DAMION: 12/14/22 DR: Devonte Lambert DO ENTERED: 12/14/[address]: Markel [facility] SPEC TYPE: Surgical DEPT: S ORDERED: HE/2, [...] support the above pathologic diagnosis. CPT Codes 66151 Specimen: [id number] Received: 12/14/22 Status: JOE Chan Num: [id number] Spec Type: Surgical Subm Dr: Devonte Lambert DO Tissues: A Small Intestine - Biopsy/Polyp (POLYP HEPATIC FLEXURE) Procedures: HE/2, Gross/Micro L4 Patient: Giuseppe Locke [id number] (Continued) Signed (signature on file) Joaquim Brooks MD 12/19/22 0917 [facility] ECHOCARDIO M/2D COMPLETEon 0 12-05-2022 ECHOCARDIO M/2D COMPLETE Patient: GIUSEPPE LOCKE. Exam Date: 12/05/2022 : 1940 Gender:M Ordering : PAT [facility] Admission #: [id number] Family : Order #: [id number] CLICK HERE TO VIEW EXAM ECHOCARDIOGRAM REPORT [...] Joni Rowland M.D. on 12/15/2022 at 09:08 Normal [facility] CBC AUTO DIFFon 11-08-2022 BASO # 0.1 103/ul Normal 0.0-0.1 [facility] Comment on above: Performed By: #### C BC #### [facility] [address] [place] [address] Dr. Carlton Mendez Basophils/100 WBC (Bld) 0.9 % Normal 0.2-2.0 [facility] Comment on above: Performed By: #### C BC #### [facility] [address] [place] [address] Dr. Carlton Mendez EO # 0.7 103/ul Normal 0.0-0.7 [facility] Comment on above: Performed By: #### C BC #### [facility] [address] [place] [address] Dr. Carlton Mendez Eosinophils/100 WBC (Bld) 7.3 % Critically high 0.9-7.0 [facility] Comment on above: Performed By: #### C BC #### [facility] [address] [place] [address] Dr. Carlton Mendez Erythrocyte distribution width (RBC) [Ratio] 12.7 % Normal 11.0-15.0 [facility] Comment on above: Performed By: #### C BC #### [facility] [address] [address] [address] Carlton Mendez Hematocrit (Bld) [Volume fraction] 41.2 % Critically low 42.0-54.0 [facility] Comment on above: Performed By: #### C BC #### [facility] [address] [address] [address] Carlton Mendez Hemoglobin (Bld) [Mass/Vol] 13.9 g/dL Critically low 14.0-18.0 [facility] Comment on above: Performed By: #### C BC #### [facility] [address] [place] [address] Dr. Carlton Mendez IG # 0.05 10e3/ul Critically high 0.00-0.03 [facility] Comment on above: Performed By: #### C BC #### [facility] [address] [place] [address] Dr. Carlton Mendez IG % 0.5 % Normal 0.0-0.5 [facility] Comment on above: Performed By: #### C BC #### [facility] [address] [place] [address] Dr. Carlton Mendez LYMPH # 4.9 103/ul Critically high 1.2-3.8 [facility] Comment on above: Performed By: #### C BC #### [facility] [address] [place] [address] Dr. Carlton Mendez Lymphocytes/100 WBC (Bld) 49.8 % Normal 20.5-60.0 [facility] Comment on above: Performed By: #### C BC #### [facility] [address] [place] [address] Dr. Carlton Mendez MANUAL DIFF REQ NO Normal [facility] Comment on above: Performed By: #### C BC #### [facility] [address] [place] [address] Dr. Carlton Mendez MCH (RBC) [Entitic mass] 31.8 pg Normal 25.9-34.0 [facility] Comment on above: Performed By: #### C BC #### [facility] [address] [address] [address] Carlton Mendez MCHC (RBC) [Mass/Vol] 33.7 g/dL Normal 29.9-35.2 [facility] Comment on above: Performed By: #### C BC #### [facility] [address] [address] [address] Carlton Mendez MCV (RBC) [Entitic vol] 94.3 fL Critically high 80.0-94.0 [facility] Comment on above: Performed By: #### C BC #### [facility] [address] [address] [address] Carlton Mendez MONO # 0.9 103/ul Critically high 0.3-0.8 [facility] Comment on above: Performed By: #### C BC #### [facility] [address] [place] [address] Dr. Carlton Mendez Monocytes/100 WBC (Bld) 8.8 % Normal 1.7-12.0 [facility] Comment on above: Performed By: #### C BC #### [facility] [address] [place] [address] Dr. Carlton Mendez NEUT # 3.2 103/ul Normal 1.4-6.5 [facility] Comment on above: Performed By: #### C BC #### [facility] [address] [place] [address] Dr. Carlton Mendez Neutrophils/100 WBC (Bld) 32.7 % Critically low 43.0-75.0 [facility] Comment on above: Performed By: #### C BC #### [facility] [address] [place] [address] Dr. Carlton Mendez Platelet mean volume (Bld) [Entitic vol] 9.5 fL Normal 9.5-13.5 [facility] Comment on above: Performed By: #### C BC #### [facility] [address] [place] [address] Dr. Carlton Mendez PLT 233 103/ul Normal 150-450 [facility] Comment on above: Performed By: #### C BC #### [facility] [address] [address] [address] Carlton Mendez RBC 4.37 106/ul Critically low 4.70-6.10 [facility] Comment on above: Performed By: #### C BC #### [facility] [address] [address] [address] Carlton Mendez WBC 9.9 103/ul Normal 4.0-11.0 [facility] Comment on above: Performed By: #### C BC #### [facility] [address] [address] [address] Carlton Mendez LIPID PROFILEon 11-08-2022 CHOL-HDL RATIO NORM SEE BELOW Normal [facility] Comment on above: Result Comment: 3.3 - 4.4 LOW RISK 4.4 - 7.1 AVERAGE RISK 7.1 - 11.0 MODERATE RISK >11.0 HIGH RISK Performed By: #### C MP, LIPID #### [facility] [address] [place] [address] Dr. Carlton Mendez Cholesterol [Mass/Vol] 175 mg/dL Normal <=200 [facility] Comment on above: Performed By: #### C MP, LIPID #### [facility] [address] [address] [address] Carlton Mendez Cholesterol in HDL [Mass/Vol] 36 mg/dL Critically low 40-60 [facility] Comment on above: Performed By: #### C MP, LIPID #### [facility] [address] [address] [address] Carlton Mendez Cholesterol in LDL [Mass/Vol] 111.8 mg/dL Normal [facility] Comment on above: Performed By: #### C MP, LIPID #### [facility] [address] [place] [address] Dr. Carlton Mendez Cholesterol.total/ Cholesterol in HDL [Mass ratio] 4.9 {ratio} Normal [facility] Comment on above: Performed By: #### C MP, LIPID #### [facility] [address] [address] [address] Carlton Mendez HDL NORMAL > or = 60 mg/dl - LO W CARDIOVASCULAR RISK <40 mg/dl - HIGH CARDIOVASCULAR RISK Normal [facility] Comment on above: Performed By: #### C MP, LIPID #### [facility] [address] [address] [address] Carlton Mendez LDL CALC NORMAL SEE BELOW Normal [facility] Comment on above: Result Comment: <100 mg/dl OPTIMAL 100 - 129 mg/dl NEAR OR ABOVE OPTIMAL 130 - 159 mg/dl BORDERLINE HIGH 160 - 189 mg/dl HIGH >190 mg/dl VERY HIGH Performed By: #### C MP, LIPID #### [facility] [address] [place] [address] Dr. Carlton Mendez Triglyceride [Mass/Vol] 136 mg/dL Normal <=150 [facility] Comment on above: Performed By: #### C MP, LIPID #### [facility] [address] [place] [address] Dr. Carlton Mendez VLDL CALC 27.2 mg/dL Normal [facility] Comment on above: Performed By: #### C MP, LIPID #### [facility] [address] [place] [address] Dr. Carlton Mendez PROF 14(COMP METB)on 023 Albumin [Mass/Vol] 3.6 g/dL Normal 3.4-5.0 [facility] Comment on above: Performed By: #### C MP, LIPID #### [facility] [address] [place] [address] Dr. Carlton Mendez Albumin/Globulin [Mass ratio] 0.9 {ratio} Normal [facility] Comment on above: Performed By: #### C MP, LIPID #### [facility] [address] [place] [address] Dr. Carlton Mendez ALP [Catalytic activity/Vol] 59 U/L Normal 46-116 [facility] Comment on above: Performed By: #### C MP, LIPID #### [facility] [address] [place] [address] Dr. Carlton Mendez ALT [Catalytic activity/Vol] 34 U/L Normal 16-63 [facility] Comment on above: Performed By: #### C MP, LIPID #### [facility] [address] [place] [address] Dr. Carlton Mendez Anion gap [Moles/Vol] 11.6 mmol/L Normal [facility] Comment on above: Performed By: #### C MP, LIPID #### [facility] [address] [place] [address] Dr. Carlton Mendez AST [Catalytic activity/Vol] 24 U/L Normal 15-37 [facility] Comment on above: Performed By: #### C MP, LIPID #### [facility] [address] [place] [address] Dr. Carlton Mendez Bilirubin [Mass/Vol] 0.4 mg/dL Normal 0.2-1.0 [facility] Comment on above: Performed By: #### C MP, LIPID #### [facility] [address] [place] [address] Dr. Carlton Mendez Calcium [Mass/Vol] 8.9 mg/dL Normal 8.5-10.1 [facility] Comment on above: Performed By: #### C MP, LIPID #### [facility] [address] [place] [address] Dr. Carlton Mendez Chloride [Moles/Vol] 104 mmol/L Normal 98-107 [facility] Comment on above: Performed By: #### C MP, LIPID #### [facility] [address] [place] [address] Dr. Carlton Mendez CO2 [Moles/Vol] 29.6 mmol/L Normal 21.0-32.0 [facility] Comment on above: Performed By: #### C MP, LIPID #### [facility] [address] [place] [address] Dr. Carlton Mendez Creatinine [Mass/Vol] 0.95 mg/dL Normal 0.70-1.30 [facility] Comment on above: Performed By: #### C MP, LIPID #### [facility] [address] [place] [address] Dr. Carlton Mendez EGFR-AF GABONESE >60 Normal >=60 [facility] Comment on above: Performed By: #### C MP, LIPID #### [facility] [address] [place] [address] Dr. Carlton Mendez EGFR-NON AF GABONESE >60 Normal >=60 [facility] Comment on above: Performed By: #### C MP, LIPID #### [facility] [address] [place] [address] Dr. Carlton Mendez Globulin (S) [Mass/Vol] 4.0 g/dL Normal [facility] Comment on above: Performed By: #### C MP, LIPID #### [facility] [address] [place] [address] Dr. Carlton Mendez Glucose [Mass/Vol] 146 mg/dL Critically high 74-106 [facility] Comment on above: Performed By: #### C MP, LIPID #### [facility] [address] [place] [address] Dr. Carlton Mendez Potassium [Moles/Vol] 4.2 mmol/L Normal 3.5-5.1 [facility] Comment on above: Performed By: #### C MP, LIPID #### [facility] [address] [place] [address] Dr. Carlton Mendez Protein [Mass/Vol] 7.6 g/dL Normal 6.4-8.2 [facility] Comment on above: Performed By: #### C MP, LIPID #### [facility] [address] [place] [address] Dr. Carlton Mendez Sodium [Moles/Vol] 141 mmol/L Normal 136-145 [facility] Comment on above: Performed By: #### C MP, LIPID #### [facility] [address] [place] [address] Dr. Carlton Mendez Urea nitrogen [Mass/Vol] 19.0 mg/dL Critically high 7.0-18.0 [facility] Comment on above: Performed By: #### C MP, LIPID #### [facility] [address] [place] [address] Dr. Carlton Mendez Urea nitrogen/Creatinin e [Mass ratio] 20.0 mg/mg Normal [facility] Comment on above: Performed By: #### C MP, LIPID #### [facility] [address] [place] [address] Dr. Carlton Mendez ECHOCARDIO M/2D COMPLETEon 0 05-18-2022 ECHOCARDIO M/2D COMPLETE Patient: GIUSEPPE LOCKE Exam Date: 05/18/2022 : 1940 Gender:M Ordering : DR JONI ROWLAND M.D. Admission #: [id number] Family : DR GALINDO BENITO M.D. Order #: [id number] CLICK HERE TO VIEW EXAM ECHOCARDIOGRAM REPORT [...] Rowland M.D. on 05/18/2022 at 19:45 Normal [facility] US ABD AORTA DIAGNOSTICon US ABD AORTA [...] by: CHICO GUERRERO Date: 2022-05-18 16:07 Normal [facility] Ambulatory Clinical Summaryo n 08-16-2021 Ambulatory Clinical Summary {[id number] }CD:[id number] Normal [facility] Patient Educationon 08-16-20 Patient Education Urology Benign [...] Follow these instructions at home: ? Take eeem-ewq-dafjtth and prescription medicines only as told by [...] You d (more content not included)... Normal [facility] Urology Office/Clinic Noteon 08-16-2021 Urology Office/Clinic Note [...] Information SHILA EDGAR, Nathaniel Yusuf, URL [address] [place] [address]- [phone] Additional Instructions: prn Patient Education Benign Prostatic Hyperplasia Emily Womack , personally scribed for Dr. Love on [...] Negative (08/16/21 11:52:00) Leukocytes Urine Dipstick: Negative (08/16/ (more content not included)... [facility] Comment on above: Result Comment: Elec tronically Signed By: Nathaniel LOVE MD\.br\Date and Time Signed: 08/16/21 12:38 EST\.br\Electronically Co-Signed By: Emily Mariscal MA\.br\Date and Time Co-Signed: 08/16/21 12:36 EST Ambulatory Clinical Summaryo n 08-12-2021 Ambulatory Clinical Summary {[id number] }CD:[id number] [facility] Historical Records Officeon 08-12-2021 Historical Records Office [id number]: 127 [facility] Patient Educationon 08-12-20 21 Patient Education Infectious Disease Prostatitis Prostatitis is swelling of the prostate gland. The prostate helps to make semen. It is below a man's bladder, in front of the rectum. There are different types of prostatitis. Follow these instructions at home: ? Take tpth-rhe-ffrdebn and prescription medicines only as told by [...] 03/26/2013 Document Revised: 09/07/2018 Document Reviewed: 06/15/2017 [employer] Patient Education ? 2019 [employer]. [facility] Urology Office/Clinic Noteon 08-12-2021 Urology Office/Clinic Note Chief Complaint Prostate pain HPI Staff 81 year old male here for prostate pain. 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 Dysuria: no Incomplete [...] there is any change in sx. Ordered: sulfamethoxazole-trimeth oprim, 1 tab(s), Oral, BID for 14 day(s), 28 tab(s), Refill(s) 0, [id number], 165, cm, 08/12/21 9:35:00 EDT, Height/Length Dosing, 80, kg, 08/12/21 9:35:00 EDT, Weight Dosing Office Visit Level 4 Est 40250 2. Family history of prostate cancer (Z80.42: Family history of malignant neoplasm of prostate) tissue from retropubic prostatectomy 1998 was benign. Most recent PSA was done 05/04/2017 and was low at 0.46 and PSA check were then D/C at the last encounter. Ordered: sulfamethoxazole-trimeth oprim, 1 tab(s), Oral, BID for 14 day(s), 28 tab(s), Refill(s) 0, [id number], 165, cm, 08/12/21 9:35:00 EDT, Height/Length Dosing, 80, kg, 08/12/21 9:35:00 EDT, Weight Dosing Office Visit Level 4 Est 08778 3. Glucosuria (R81: Glycosuria) 100mg/dl was found in the sample he left today. pt advised to discuss with PCP at next visit. says he is regularly checked for diabetes. Ordered: sulfamethoxazole-trimeth oprim, 1 tab(s), Oral, BID for 14 day(s), 28 tab(s), Refill(s) 0, [id number], 165, cm, 08/12/21 9:35:00 EDT, Height/Length Dosing, 80, kg, 08/12/21 9:35:00 EDT, Weight Dosing Office Visit Level 4 Est 41801 4. Perineal pain (R10.2: Pelvic and perineal [...] with update in a few weeks. Ordered: sulfamethoxazole-trimeth oprim, 1 tab(s), Oral, BID for 14 day(s), 28 tab(s), Refill(s) 0, [id number], 165, cm, 08/12/21 9:35:00 EDT, Height/Length Dosing, 80, kg, 08/12/21 9:35:00 EDT, Weight Dosing Office Visit Level 4 Est 03021 Orders: Urnls Dip Stick Auto w/o Microscopy POC 25424 I have reviewed the previous health record information and history for this patient from Lee MURRAY Jennifer Follow-up With When Contact Information ROSALIND DICKERSON PA-C [id number] [place] [address] Additional Instructions: Patient Education Prostatitis, Pysx-oj-Fqek IAna, personally scribed for Lee MURRAY Jennifer on 08/12/2021 10:14:53. . Documentation recorded by the scribe Ana Ventura accurately reflects the services(s) I performed and decisions made by me. Authenticated by Rosalind Dickerson PA-C on 08/12/2021 11:57:56. Problem List/Past Medical History Ongoing BPH with urinary obstruction Family history of prostate cancer Glucosuria History of kidney stones Hypertensi (more content not included)... Normal [facility] Comment on above: Result Comment: Elec tronically Signed By: LEE BOURNE, ROSALIND [place]\.br\Date and Time Signed: 08/12/21 11:58 EDT\.br\Electronically Co-Signed By: Ana Ventura MA\.br\Date and Time Co-Signed: 08/12/21 10:15 EDT Vital Signs Date Time Vital Sign Value Performing Clinician Facility 12-04-2024 09:01-0500 Body height 165.1 cm Briana Bacon CIVIL PREPAREDNESS OFFICER Work Phone: [facility] 12-04-2024 09:01-0500 Body mass index (BMI) [Ratio] 28.12 kg/m2 Briana Bacon CIVIL PREPAREDNESS OFFICER Work Phone: [facility] 12-04-2024 09:01-0500 Body weight 76.66 kg Briana Bacon CIVIL PREPAREDNESS OFFICER Work Phone: [facility] 12-04-2024 09:01-0500 Diastolic blood pressure 76 mm[Hg] Briana Bacon CIVIL PREPAREDNESS OFFICER Work Phone: [facility] 12-04-2024 09:01-0500 Heart rate 87 /min Briana Bacon CIVIL PREPAREDNESS OFFICER Work Phone: [facility] 12-04-2024 09:01-0500 Respiratory rate 17 /min Briana Bacon CIVIL PREPAREDNESS OFFICER Work Phone: [facility] 12-04-2024 09:01-0500 SaO2% (BldA) [Mass fraction] 94 % Briana Bacon CIVIL PREPAREDNESS OFFICER Work Phone: [facility] 12-04-2024 09:01-0500 Systolic blood pressure 124 mm[Hg] Briana Bacon NP Work Phone: [facility] 02-07-2023 10:34-0400 Diastolic blood pressure 88 mm[Hg] PHYSICIAN NO [facility] 02-07-2023 10:34-0400 Heart rate 60 /min PHYSICIAN NO [facility] 02-07-2023 10:34-0400 Respiratory rate 16 /min PHYSICIAN NO [facility] 02-07-2023 10:34-0400 SaO2% (BldA) [Mass fraction] 99 % PHYSICIAN NO [facility] 02-07-2023 10:34-0400 Systolic blood pressure 129 mm[Hg] PHYSICIAN NO [facility] 02-07-2023 09:14-0400 Body height 162.56 cm PHYSICIAN NO [facility] 02-07-2023 09:14-0400 Body temperature 98.3 [degF] PHYSICIAN NO [facility] 02-07-2023 09:14-0400 Body weight 77.11 kg PHYSICIAN NO [facility] Encounters Encounter Date Encounter Type Care Provider Facility Start: 04-01-2025 End: 04-01-2025 ambulatory GEOVANNA RAMOS [facility] Start: 03-26-2025 End: 03-26-[facility] Start: 03-18-2025 End: 03-18-2025 ambulatory [facility] Start: 03-12-2025 End: 03-12-2025 Clinisync Result Encounter Generic External Data Provider [facility] Unsolicited Start: 03-12-2025 End: 03-12-2025 Clinisync Result Encounter Generic External Data Provider [facility] External [facility] Unsolicited Start: 02-17-2025 End: 02-17-2025 ambulatory [facility] Start: 01-22-2025 End: 01-22-2025 ambulatory [facility] Start: 01-08-2025 End: 01-08-2025 ambulatory [facility] Start: 12-04-2024 End: 12-04-2024 Bamboo flowsheet Briana Bacon CIVIL PREPAREDNESS OFFICER Work Phone: [facility] Start: 12-04-2024 End: 12-04-2024 Bamboo flowsheet Briana Bacon CIVIL PREPAREDNESS OFFICER Work Phone: [facility] Start: 12-04-2024 End: 12-04-2024 Assay of hemosiderin, quant Briana Bacon CIVIL PREPAREDNESS OFFICER Work Phone: [facility] Start: 12-04-2024 End: 12-04-2024 Patient encounter procedure Briana Bacon CIVIL PREPAREDNESS OFFICER Work Phone: [facility] Comment on above: Medicare annual well ness visit, subsequent (Primary Dx); Type 2 diabetes mellitus without complications ([facility]/HCC); Thoracic aortic aneurysm without rupture, unspecified part ([facility]/HCC); Essential hypertension ([facility]/HCC); Midsystolic murmur; Hyperplasia of prostate without lower urinary tract symptoms (LUTS); Uric acid urolithiasis; Mixed hyperlipidemia (CMS/HCC); Pure hypercholesterolemia ([facility]/HCC); Routine general medical examination at health care facility; Screening for prostate cancer Start: 12-04-2024 End: 12-04-2024 ambulatory BRIANA BACON Not Available Start: 06-19-2024 End: 06-19-2024 ambulatory [facility] Start: 02-07-2023 End: 02-07-2023 ambulatory Imad Asaad Facility:[facility] Start: 02-07-2023 End: 02-07-2023 Admission to same day surgery center PHYSICIAN ALBA [facility] Work Phone: Start: 02-07-2023 End: 02-07-2023 ambulatory PHYSICIAN ALBA [facility] Work Phone: Start: 12-14-2022 End: 12-14-2022 ambulatory Devonte Itdavis Facility:[facility] Start: 12-14-2022 End: 12-14-2022 ambulatory DO Devonte Lambert Work Phone: [facility] Work Phone: Start: 12-14-2022 End: 12-14-2022 Departed Referred DO Devonte Lambert Work Phone: [facility] [place] Work Phone: Start: 12-05-2022 End: 12-06-2022 ambulatory PAT OSEAS Facility:[facility] Start: 11-15-2022 Encounter for genera l adult medical examination without abnormal findings PAT OSEAS [facility] Start: 11-08-2022 End: 11-09-2022 ambulatory PATDEENA MULLENER Facility:[facility] Start: 11-08-2022 End: 11-09-2022 Encounter for general adult medical examination without abnormal findings PAT OSEAS Facility:[facility] Start: 05-18-2022 End: 05-19-[address] JONI ROWLAND Facility:[facility] Start: 03-13-2018 End: 03-14-2018 Ambulatory DEFAULT PHYSICIAN Facility:[facility] Procedures Date Procedure Procedure Detail Performing Clinician Start: 03-12-2025 ALL CBC WITH AUTO DIFF Generic External Data Provider Start: 02-07-2023 Colonoscopy PHYSICIAN NO FAMILY Plan of Treatment Date Care Activity Detail Author Start: 12-04-2025 Medicare Annual Wellness (AWV) Medicare Annual Wellness (AWV) [facility] Start: 12-04-2025 Urine screening for protein Diabetes: Urine Protein Screening [facility] Start: 03-03-2025 Hemoglobin A1c measurement Diabetes: Hemoglobin A1C [facility] Start: 12-04-2024 End: 12-04-2025 CBC panel - Blood by Automated count CBC Lab Routine Essential hypertension ([facility]/HCC) Medicare annual wellness visit, subsequent Expected: 12/04/2024 (Approximate), Expires: 12/04/2025 [facility] Comment on above: Expected: 12/04/2024 (Approximate), Expi res: 12/04/2025 Start: 12-04-2024 End: 12-04-2025 Comprehensive metabolic 2000 panel - Serum or Plasma Comprehensive metabolic panel Lab Routine Type 2 diabetes mellitus without complications (CMS/HCC) Essential hypertension (CMS/HCC) Medicare annual wellness visit, subsequent Expected: 12/04/2024 (Approximate), Expires: 12/04/2025 [facility] Comment on above: Expected: 12/04/2024 (Approximate), Expi res: 12/04/2025 Start: 12-04-2024 End: 12-04-2025 Hemoglobin A1c/Hemoglobin.total in Blood Hemoglobin A1c Lab Routine Type 2 diabetes mellitus without complications ([facility]/HCC) Expected: 12/04/2024 (Approximate), Expires: 12/04/2025 [facility] Comment on above: Expected: 12/04/2024 (Approximate), Expi res: 12/04/2025 Start: 12-04-2024 End: 12-04-2025 Lipid 1996 panel - Serum or Plasma Lipid panel Lab Routine Mixed hyperlipidemia ([facility]) Pure hypercholesterolemia ([facility]) Expected: 12/04/2024 (Approximate), Expires: 12/04/2025 [facility] Work Phone: Comment on above: Expected: 12/04/2024 (Approximate), Expi res: 12/04/2025 Start: 12-04-2024 End: 12-04-2025 Microalbumin/Creatinin e panel in random Urine Microalbumin / creatinine, urine ratio Lab Routine Type 2 diabetes mellitus without complications ([facility]/HCC) Expected: 12/04/2024 (Approximate), Expires: 12/04/2025 [facility] Comment on above: Expected: 12/04/2024 (Approximate), Expi res: 12/04/2025 Start: 12-04-2024 End: 12-04-2025 Prostate specific Ag [Mass/volume] in Serum or Plasma PSA Lab Routine Screening for prostate cancer Expected: 12/04/2024 (Approximate), Expires: 12/04/2025 [facility] Comment on above: Expected: 12/04/2024 (Approximate), Expi res: 12/04/2025 Start: 12-04-2024 End: 12-04-2024 Patient encounter procedure 12/04/2024 9:00 AM EST Office Visit [facility] [address] [facility] [address] [place] [address] Briana Bacon, CIVIL PREPAREDNESS OFFICER [address] [place] [address] [place] [address] Arrived [facility] Comment on above: Arrived Start: 07-26-2024 Medicare Annual Wellness (AWV) Medicare Annual Wellness (AWV) [facility] Start: 06-09-2024 Influenza vaccination Influenza Vaccine (#1) [facility] Start: 02-07-2023 [facility] Start: 04-20-2022 Hemoglobin A1c measurement Diabetes: Hemoglobin A1C [facility] Start: 11-28-2019 Glaucoma screening Diabetes: Retinopathy Screening [facility] Start: 1960 Urine screening for protein Diabetes: Urine Protein Screening [facility] Patient Education Colon Polyps H emorrhoids (DC) Diverticulosis (DC) [facility] Work Phone: Immunizations Immunization Date Immunization Notes Care Provider Fa cili 07-30-2024 influenza virus vacc ine, unspecified formulation Briana Bacon CIVIL PREPAREDNESS OFFICER Work Phone: [facility] 07-26-2023 Influenza, High-dose Seasonal, Quadrivalent, Preservative Free Briana Bacon CIVIL PREPAREDNESS OFFICER Work Phone: [facility] Payers Date Payer Category Payer Self-pay [id number] 2021 Medicaid [employer] MEDICARE A DVANTAGE [id number] 1959 Medicare [id number] 1940 Unknown [id number] 1940 Unknown [id number] 1940 Unknown [id number] 1940 Unknown [id number] Private Health Insurance [employer] Mcr PFFS N on Pt [id number] Unknown Unknown [id number] Unknown [id number] Social History Date Type Detail Facility Tobacco smoking stat [facility] Unknown if ever smoked [facility] Work Phone: Start: 1940 Sex Assigned At Male F [facility] Start: 02-07-2023 End: 07-26-2023 Tobacco smoking status NHIS Never smoked tobacco (finding) [facility] Start: 07-26-2023 Tobacco use and exposure Smokeless tobacco non-user [facility] Start: 07-26-2023 End: 12-04-2024 Alcoholic beverage intake Lifetime non-drinker (finding) [facility] Start: 07-26-2023 End: 12-04-2024 History of Social function [facility] Start: 07-26-2023 End: 12-04-2024 Tobacco use panel [facility] Start: 1940 Sex assigned at Not on file N [facility] Healthcare Goals Date Patient Goal Desired Activity /State Clinical Notes 02-07-2023 to 04-01-2025 Briana Bacon NP - 12/04/2024 9:00 AM EST Note Date & Type Note Facility 04-01-2025 Note Treatment plan 04/01/2025 Giuseppe Locke I saw this patient with DESMOND Bellamy in consultation, and I agree with her assessment and plan. This 84-year-old gentleman has known bicuspid aortic valve stenosis that has progressed to severe stenosis associated with episodes of lightheadedness and fatigue. Patient has also been identified as having severe mitral regurgitation with posterior leaflet prolapse. Left heart cath reveals normal coronaries with only mild left anterior descending arterial disease. PA pressures were in the normal range. The patient initially presented about 8 years ago with an incidentally discovered ascending aortic aneurysm that has remained stable at about 3.8 to 3.9 cm.. We had long discussion about the risks and benefits of surgical approach versus TAVR/mitral clip. Considering together the stability of his ascending aortic aneurysm, the need for intervention for his symptomatic severe aortic stenosis, and the risk-benefit analysis of a surgical approach for repair of his mitral and aortic pathology in an 84 yo, I would recommend that he proceed with the least invasive approach with TAVR and subsequent MitraClip. Moreover, the patient can then be followed regarding his ascending aortic aneurysm and should it enlarge, the patient at that time could then be potentially a candidate for ascending aortic aneurysm repair. We did discuss the option of proceeding with aortic and mitral valve repair/replacement. At the present time the patient is considering proceeding with TAVR/MitraClip. Uiu-sap-RQOA workup is in progress. Chavo Chavez MD Cardiac Surgery [facility] 04-01-2025 Note Cardiothoracic Surge ry Outpatient Consultation Note 04/02/2025 Reason For Visit Chief Complaint Patient presents with New Patient Referring Provider: Geovanna Ramos CNP History Of Present Illness Giuseppe Locke is a 84 y.o. male with PMH of hypertension, ascending aortic aneurysm measuring around 4.3 cm by prior echocardiogram and CT scan ([id number]), Bicuspid aortic valve with progression of severe aortic valve stenosis. Transthoracic echocardiogram December 2024 showed bicuspid aortic valve with progression of stenosis to severe with a very high mean gradient and peak velocity. DVI 0.13. He underwent DADA 01/22/2025 that showed EF 55%, severe mitral valve regurgitation with posterior mitral valve leaflet prolapse, and mild aortic valve regurgitation with severe aortic valve stenosis Max Velocity 4.49 m/s Max gradient 80.64mmHg, Mean gradient 44.00mmHg). He underwent cardiac catherization 03/18/2025 showing stable non-obstructive coronary artery disease. Patient was referred to CT Surgery for surgical evaluation SAVR/MVR vs. TAVR/MitraClip Accompanied by his daughter and today at this appointment. He reports that he has been doing very well and remains pretty active. Denies chest pain, shortness of breath, palpitations, syncope and leg edema. Assessment: Diagnosis Plan 1. Nonrheumatic aortic valve stenosis Ambulatory referral to Cardiothoracic Surgery Plan : -Patient seen and evaluated by Cardiothoracic Team. Dr. Chavo Chavez personally examined the patient and reviewed The Cardiac Catherization, Echocardiogram, CXR, and Other Diagnostic Testing. Findings discussed with tractor expert and patient. Explained current disease process and reviewed treatment options. -CT Surgery Recommendation: TAVR/MitraClip, patient is of high surgical risk due to age and comorbidites. Also, patient expressed not wanting to undergo open heart surgery for AVR/MVR. -STS Score for this surgery is: Procedure Type: AV Replace + MV Replace Perioperative Outcome Estimate % Operative Mortality 5.13% Morbidity & Mortality 17.6% Stroke 4.55% Renal Failure 4.44% Reoperation 5.61% Prolonged Ventilation 11.6% Deep Sternal Wound Infection NA Long Hospital Stay (>14 days) 10.6% Short Hospital Stay (<6 days)* 22% Clinical Summary Planned Surgery: AV Replace + MV Replace, Bicuspid AV Anatomy, Elective, First cardiovascular surgery Demographics: 84 year old, White, male, 76.7kg, 165.1cm, BMI: 28.1 kg/m???, BSA: 1.84m??? Insurance/Payor: Medicare Lab Values: Creatinine: 0.96 mg/dL, Hematocrit: 37.6 %, WBC Count: 8.1 10???/?L, Platelet Count: 819887 cells/?L, Total Albumin: 4.1 g/dL, Total Bilirubin: 0.6 mg/dL, MELD score: 7 Substance Abuse: Never smoker Risk Factors / Comorbidities: Diabetes Mellitus , Hypertension, Family Hx of CAD, Syncope Pulmonary RF: Unknown CLD Cardiac Status: Ejection Fraction = 55% Coronary Artery Disease: No coronary symptoms Valve Disease: Aortic Stenosis, Mild AR, Moderate MR, Mild TR -TAVR coordinator will follow-up with patient of scheduling of procedures. -CT Surgery will follow inpatient. Past Medical History He has a past medical history of Aneurysm, Heart murmur, Heart valve disease, Hyperlipidemia, and Hypertension. Surgical History He has a past surgical history that includes Hernia repair and Prostate biopsy. Family History Family History[1] Social History He reports that he has never smoked. He has never used smokeless tobacco. He reports that he does not currently use alcohol. No history on file for drug use. Allergies Patient has no known allergies. Medications Current Medications[2] Review of Systems Review of Systems: All 14 Systems Reviewed and Negative unless otherwise indicated in the above HPI. Last Recorded Vitals Visit Vitals BP 131/77 (BP Location: Left arm, Patient Position: Sitting, BP Cuff Size: Adult) Pulse 61 Resp 18 Physical Exam Vitals reviewed. Constitutional: General: He is not in acute distress. Appearance: Normal appearance. He is normal weight. He is not ill-appearing. HENT: Head: Normocephalic and atraumatic. Mouth/Throat: Mouth: Mucous membranes are moist. Pharynx: Oropharynx is clear. Eyes: Extraocular Movements: Extraocular movements intact. Conjunctiva/sclera: Conjunctivae normal. Pupils: Pupils are equal, round, and reactive to light. Neck: Vascular: No carotid bruit. Cardiovascular: Rate and Rhythm: Normal rate and regular rhythm. Pulses: Normal pulses. Heart sounds: Murmur heard. Pulmonary: Effort: Pulmonary effort is normal. No respiratory distress. Breath sounds: Normal breath sounds. Abdominal: General: Abdomen is flat. There is no distension. Palpations: Abdomen is soft. Musculoskeletal: General: Normal range of motion. Cervical back: Normal range of motion. Right lower leg: No edema. Left lower leg: No edema. Skin: General: Skin (more content not included)... [facility] 03-28-2025 Note Patient called the o ffice stating his insurance company called him and told him his upcoming procedure was denied. I see he is scheduled for carotid duplex at [facility] on 04/01/2025. I called [facility] US dept and they said per the pre-cert dept, this does not require prior authorization . I called patient back and made him aware. He verbalized understanding and thanked me. [facility] 03-26-2025 Note Please call pt suzanne marinelli his upcoming procedure. [facility] 03-18-2025 Note Patient: Giuseppe rogers Procedure Information Date/Time: 03/18/25 1100 Procedures: Coronary angiography - PC Approved Left heart cath Right heart cath Location: [facility] 3 / [facility] (Cath) Providers: Joni Rowland MD Clinical information reviewed: Allergies Meds Physical Exam Airway Mallampati: II TM distance: <3 FB Cardiovascular Rhythm: regular Rate: normal Dental Pulmonary Abdominal Anesthesia Plan ASA 3 other (Conscious ) Anesthetic plan and risks discussed with patient. Use of blood products discussed with patient who consented to blood products. Plan discussed with attending. Additional Equipment Requests [facility] 02-17-2025 Note [place] Cardiology - [facility] Subjective Giuseppe Locke is a 84 y.o. year old male patient being seen for follow up DADA ant CTA. Patient states he feels fine. Patient states he has occasional lightlessness with standing and exertion, no other cardiac complaints at this time. 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 Hemorrhoids History of colonic polyps History of renal calculi Hyperlipidemia Hyperplasia of prostate Perineal pain Prostatic pain Uric acid renal calculus Midsystolic murmur Pure hypercholesterolemia Cellulitis of left leg without foot Contact dermatitis Family History Problem Relation Name Age of Onset Kidney disease Mother Hyperlipidemia Father Aneurysm Father Coronary artery disease Sister Cancer Sister Coronary artery disease Brother Social History Tobacco Use Smoking status: Never Smokeless tobacco: Never Substance Use Topics Alcohol use: Not Currently HPI Giuseppe is a 84-year-old man with history of hypertension, and ascending aortic aneurysm measuring around 4.3 cm by prior echocardiogram and CT scan ([id number]). He also has aortic aneurysm that is followed by echocardiography. His transthoracic echocardiogram December 2024 showed bicuspid aortic valve with progression of stenosis to severe with a very high mean gradient and peak velocity. DVI 0.13. After last visit with me in January 2025 I proceeded with transesophageal echocardiogram. today he reports that he has been doing very well. he denies chest pain, shortness of breath, palpitations, syncope and leg edema. he has good exercise tolerance. There is no claudication. He does have lightheadedness with standing and exertion. Review of Systems Constitutional: Negative. Neurological: Positive for light-headedness. Objective Visit Vitals BP 125/85 (BP Location: Right arm, Patient Position: Sitting) Pulse 79 Ht 1.651 m (5' 5 ) Wt 76.7 kg (169 lb) SpO2 96% BMI 28.12 kg/m??? Smoking Status Never BSA 1.88 m??? Physical Exam Constitutional: Appearance: He is well-developed. He is not ill-appearing. HENT: Head: Normocephalic and atraumatic. Nose: Nose normal. Eyes: General: No scleral icterus. Pupils: Pupils are equal, round, and reactive to light. Neck: Thyroid: No thyromegaly. Vascular: No JVD. Cardiovascular: Rate and Rhythm: Normal rate and regular rhythm. Pulses: Radial pulses are 2+ on the right side and 2+ on the left side. Heart sounds: Murmur heard. Systolic (RUSB, apex) murmur is present with a grade of 3/6. No friction rub. No gallop. Pulmonary: Effort: Pulmonary effort is normal. No respiratory distress. Breath sounds: Normal breath sounds. No wheezing or rales. Chest: Chest wall: No tenderness. Abdominal: General: Bowel sounds are normal. There is no distension. Palpations: Abdomen is soft. Tenderness: There is no abdominal tenderness. Musculoskeletal: General: No swelling. Cervical back: Neck supple. Skin: General: Skin is warm and dry. Neurological: General: No focal deficit present. Mental Status: He is alert and oriented to person, place, and time. Psychiatric: Mood and Affect: Mood normal. Behavior: Behavior is cooperative. Judgment: Judgment normal. Allergies No Known Allergies Medications Current Outpatient Medications: lisinopril 5 mg tablet, Take 1 tablet (5 mg) by mouth in the morning., Disp: 90 tablet, Rfl: 3 Recent Labs Blood testing 12/04/2024: Cholesterol 201, HDL 43, LDL 134, triglycerides 128, BUN 17, creatinine 0.92, EGFR 83, potassium 4.3, LFTs normal. Hemoglobin 13.9, platelets 239. Hemoglobin A1c 6.7%. Serum creatinine 01/22/2025: 0.87, EGFR 85.6. Imaging and other tests Transesophageal echocardiogram 01/22/2025: Left Ventricle: The left ventricle is normal size. Global left ventricular systolic function is normal. The EF is 55 % visually. Left ventricular wall thickness is normal. No regional wall motion abnormality. Right Ventricle: The right ventricle appears normal in size. Right ventricular systolic function appears normal. Left Atrium: The left atrium appears normal in size. Mitral Valve: Myxomatous degeneration of the mitral valve. Flow reversal is seen in the pulmonary veins suggestive of severe mitral regurgitation. No mitral valve stenosis. There is a marked posterior mitral valve leaflet prolapse. The mitral regurgitant jet is eccentric and directed anteriorly. Aortic Valve: Bicuspid aortic valve. Mild aortic valve regurgitation. Moderate to severe aortic stenosis. Aortic Valve Measurements AV V (more content not included)... [facility] 01-22-2025 Note Patient: Giuseppe rogers Procedure Information Date/Time: 01/22/25 1030 Procedure: TRANSESOPHAGEAL ECHO (DADA) Location: [facility] Clinical information reviewed: Allergies Meds Physical Exam Airway Mallampati: III Cardiovascular Dental Pulmonary Abdominal Anesthesia Plan ASA 3 other (Conscious sedation) intravenous induction Anesthetic plan and risks discussed with patient. Use of blood products discussed with patient who consented to blood products. Plan discussed with attending and fellow. Additional Equipment Requests [facility] 01-08-2025 Note [place] Cardiology - [facility] Subjective Giuseppe Locke is a 84 y.o. year old male patient being seen for 6 month follow up and results of his Echo. Patient states he has no cardiac complaints at this time. 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 Hemorrhoids History of colonic polyps History of renal calculi Hyperlipidemia Hyperplasia of prostate Perineal pain Prostatic pain Uric acid renal calculus Midsystolic murmur Pure hypercholesterolemia Cellulitis of left leg without foot Contact dermatitis Family History Problem Relation Name Age of Onset Kidney disease Mother Hyperlipidemia Father Aneurysm Father Coronary artery disease Sister Coronary artery disease Brother Social History Tobacco Use Smoking status: Never Smokeless tobacco: Never Substance Use Topics Alcohol use: Not Currently HPI Giuseppe is a 84-year-old man with history of hypertension, and ascending aortic aneurysm measuring around 4.3 cm by prior echocardiogram and CT scan ([id number]). He also has aortic aneurysm that is followed by echocardiography. today he reports that he has been doing very well. he denies chest pain, shortness of breath, palpitations, dizziness, syncope and leg edema. he has good exercise tolerance. There is no claudication. His recent echocardiogram showed bicuspid aortic valve with progression of stenosis to severe with a very high mean gradient and peak velocity. DVI 0.13. Review of Systems Constitutional: Negative. Objective Visit Vitals BP 111/71 (BP Location: Left arm, Patient Position: Sitting) Pulse 67 Ht 1.651 m (5' 5 ) Wt 76.7 kg (169 lb) SpO2 97% BMI 28.12 kg/m??? Smoking Status Never BSA 1.88 m??? Physical Exam Constitutional: Appearance: He is well-developed. He is not ill-appearing. HENT: Head: Normocephalic and atraumatic. Nose: Nose normal. Eyes: General: No scleral icterus. Pupils: Pupils are equal, round, and reactive to light. Neck: Thyroid: No thyromegaly. Vascular: No JVD. Cardiovascular: Rate and Rhythm: Normal rate and regular rhythm. Pulses: Radial pulses are 2+ on the right side and 2+ on the left side. Heart sounds: Murmur heard. Systolic (RUSB, apex) murmur is present with a grade of 3/6. No friction rub. No gallop. Pulmonary: Effort: Pulmonary effort is normal. No respiratory distress. Breath sounds: Normal breath sounds. No wheezing or rales. Chest: Chest wall: No tenderness. Abdominal: General: Bowel sounds are normal. There is no distension. Palpations: Abdomen is soft. Tenderness: There is no abdominal tenderness. Musculoskeletal: General: No swelling. Cervical back: Neck supple. Skin: General: Skin is warm and dry. Neurological: General: No focal deficit present. Mental Status: He is alert and oriented to person, place, and time. Psychiatric: Mood and Affect: Mood normal. Behavior: Behavior is cooperative. Judgment: Judgment normal. Allergies No Known Allergies Medications Current Outpatient Medications: lisinopril 5 mg tablet, Take 1 tablet (5 mg) by mouth in the morning., Disp: 90 tablet, Rfl: 3 Recent Labs Blood testing 12/04/2024: Cholesterol 201, HDL 43, LDL 134, triglycerides 128, BUN 17, creatinine 0.92, EGFR 83, potassium 4.3, LFTs normal. Hemoglobin 13.9, platelets 239. Hemoglobin A1c 6.7%. Imaging and other tests Echocardiogram 12/27/2024: CONCLUSION: 1. Moderate concentric ventricular hypertrophy with normal systolic function. Estimated LVEF is 55 to 60%. 2. Normal right ventricular size and systolic function. 3. Bicuspid aortic valve, Tyrese type I with severe stenosis and mild regurgitation. DVI 0.13, DAVID 0.5 cm2, Mean 74.77 mmHg. 4. Mild to moderate mitral regurgitation. 5. Mild tricuspid regurgitation. 6. Mildly elevated right-sided pressures. RVSP is 43 mmHg. 7. Moderately dilated aortic root [measuring 4.7 cm] and ascending aorta [measuring 4.1 cm]. 8. A transesophageal echocardiogram is recommended for further confirmation of the severity of the aortic valve stenosis. 9. A CT angiogram of the chest is recommended for further assessment of the ascending aorta. Echocardiogram 05/24/2024: CONCLUSION: 1. Mild to moderate concentric left ventricular hypertrophy with normal systolic function. LVEF is 55 to 60%. 2. Normal right ventricular size and systolic function. 3. Moderate aortic valve stenosis. 4. Mild mitral regurgitation. 5. Normal right-sided pressures. 6. Moderately dilated aortic root [4.3 cm] with mildly dilated ascending aorta [3.8 cm]. Ec (more content not included)... [facility] 12-04-2024 History of Present illness Narrative Images [...] Medicine) Monie Prado MD as PCP - tna Medicare Annual Visit Over the past 2 [...] Yes Cognitive Screening Three Word Registration: Banana, Jeffers, Chair Clock Drawing: Normal Clock - 2 Three Word Recall: All 3 words correct - 3 Total Score (0-5 Points): 5 Pain Assessment Pain Score: 0 - No pain Advance Care Planning Do you have a living will?: Yes Do you have a medical power of research attorney?: Yes Objective : BP 124/76 Pulse [...] 1. Type 2 diabetes mellitus without complications ([facility]) - Comprehensive metabolic panel; Future - Hemoglobin [...] Thoracic aortic aneurysm without rupture, unspecified part ([facility]) This is a chronic medical condition that is stable since last assessment. No changes in treatment are suggested at this time. Follows up with vascular/cardiology. 3. Essential hypertension ([facility]) Patient's blood pressure is currently well controlled. [...] stones as this time. 7. Mixed hyperlipidemia ([facility]) Stressed the importance of limiting processed foods [...] CBC 10. [facility] Wellness form reviewed in detail with the patient. Encouraged patient to stay up to date on immunizations and preventative testing. Encouraged healthy diet, stay active. Will continue with yearly wellness exams. 11. Screening for prostate cancer Await lab - PSA; Future - PSA No orders of the defined types were placed in this encounter. Electronically signed by Briana Bacon NP on December 04, 2024 documented in this encounter [facility] 06-19-2024 Note Hypertension is well controlled, renal function stable and continue lisinopril. Lightheadedness/dizziness resolved after reducing dose at last visit. [facility] 06-19-2024 Note Thoracic aneurysm re deena stable without significant widening since last TTE- HTN well controlled Continue lisinopril. -In [address] 4[address]1 ; [address] 4[address]3 -05/2020: ECHO ascending 4.04, root 4.37cm; CT: 4.1cm -ECHO 05/2022: AoRoot 4.65cm, AsAo 4.0cm - [facility] 06-19-2024 Note Current echo reviewe d with and noted aortic stenosis has went from mild to moderate- he remains asymptomatic. D/W pt to call office for chest pain, SOB, palpitations, lightheadedness/dizziness or syncope and he voiced understanding. [facility] 06-19-2024 Note Pt here for a one ye ar follow up with echo. Pt denies chest pain, palpatations, sob. Review of Systems All other systems reviewed and are negative. [facility] 06-19-2024 Note [facility] CARDIOLOGY PROGR ESS [...] side. Heart sounds: Systolic murmur RUSB and [place] 3/6 with radiation to carotid, S1 normal [...] reducing dose at last visit. RTC 6months [facility] 02-07-2023 Procedure note [facility] Evaluation note No assessment information availa [facility] Work Phone: Evaluation note Diagnosis Medicare annual wellness visit, subsequent- Primary Type 2 diabetes mellitus without complications (CMS/HCC) Thoracic aortic aneurysm without rupture, unspecified part (CMS/HCC) Essential hypertension (CMS/HCC) Unspecified essential hypertension Midsystolic murmur Undiagnosed cardiac murmurs Hyperplasia of prostate without lower urinary tract symptoms (LUTS) Unspecified hyperplasia of prostate without urinary obstruction and other lower urinary tract symptoms (LUTS) Uric acid urolithiasis Uric acid nephrolithiasis Mixed hyperlipidemia (CMS/HCC) Mixed hyperlipidemia Pure hypercholesterolemia (CMS/HCC) Pure hypercholesterolemia Routine general medical examination at health care facility Routine general medical examination at a health care facility Screening for prostate cancer Special screening for malignant neoplasm of prostate documented in this encounter [facility] Author Liu Dawkins [facility] February 07, 2023 9:21am Note Date/Time February 07, 2023 9:21am [facility] [address] [place] [address] Gastroenterology H&P Signed Patient: Giuseppe Locke MR#: [id number] : 1940 Acct:[id number] Age/Sex: 82 / M Adm Date: 3 Loc: Room: Type: [facility] Attending Dr: Liu Dawkins MD Copies to: [...] Dawkins M.D. Documented By: Liu Dawkins MD 02/07/23918 Signed By: <Electronically signed by Liu Dawkins MD> 02/07/23920 [facility] Work Phone: Hospital Discharge instructions Additional Instructions [...] Do NOT operate machinery such as power tools, lawn mowers, snow blowers, sewing machines, etc. [...] years -Follow up with PCP. -Office number [phone]. [facility] Work Phone: Summary Purpose Family History [...] section and content) DATE CREATED AUTHOR 03/27/2018 [facility] DATE CREATED AUTHOR AUTHOR'S ORGANIZ ATION 08/17/2021 [facility] DATE CREATED AUTHOR AUTHOR'S ORGANIZ ATION 12/16/2022 [facility] DATE CREATED AUTHOR AUTHOR'S ORGANIZ ATION 02/15/2023 [facility] DATE CREATED AUTHOR AUTHOR'S ORGANIZ ATION 12/06/2024 [facility] EP[facility] DATE CREATED AUTHOR AUTHOR'S ORGANIZ ATION 12/07/2024 [facility] DATE CREATED AUTHOR AUTHOR'S ORGANIZ ATION 04/09/2025 [facility] Care Teams (unrecognized sec tion and content) [...] Benito II MD Primary Care Provider Active [employer] Relationship Specialty Start Date End Date Galindo Benito MD [address] [facility] [address] [place] [address] PCP - General Internal Medicine 02/14/23 Monie Pardo MD [address] [facility] [address] [place] [address] PCP - [employer] 10/09/21 [employer] Relationship Specialty Start Date End Date Galindo Benito MD [address] [facility] [address] [place] [address] PCP - General Internal Medicine 02/14/23 Monie Prado MD [address] [facility] [address] [place] [address] PCP - [employer] 10/09/21 [employer] Relationship Specialty Start Date End Date Galindo Benito MD [address] [facility] [address] [place] [address] PCP - General Internal Medicine 02/14/23 Monie Prado MD [address] [facility] [address] [place] [address] [facility] - [facility] 10/09/21 Goals (unrecognized section and content) Goals [...] BE BASED ON THE PRIMARY CLINICAL RECORDS. [employer] provides no warranty or guarantee of the accuracy or completeness of information in this document.
[2025-04-25 07:27] LABS: Hematocrit 38.8 % (42.0-54.0); Hemoglobin 13.6 g/dL (14.0-18.0); Immature Granulocytes Abs Auto 0.02 10^3/uL (0.00-0.03); Immature Granulocytes Pct Auto 0.2 % (0.0-0.5); Lymphocytes Absolute Auto 3.5 10^3/uL (1.2-3.8); Mean Corpuscular HGB Conc 35.1 g/dL (29.9-35.2); Mean Corpuscular Hemoglobin 33.3 pg (25.9-34.0); Mean Corpuscular Volume 95.1 fL (80.0-94.0); Platelet Count 212 10^3/uL (150-450); Red Blood Count 4.08 10^6/uL (4.70-6.10); White Blood Count 8.4 10^3/uL (4.0-11.0)
[2025-04-25 07:34] LABS: Anion Gap 15.3; Blood Urea Nitrogen 20.0 mg/dL (7.0-18.0); Calcium 8.9 mg/dL (8.5-10.1); Carbon Dioxide 25.8 mmol/L (21.0-32.0); Chloride 106 mmol/L (98-107); Estimated GFR (African America >60 (>=60 mL/min/1.73m^2); Estimated GFR (Non-African Ame >60 (>=60 mL/min/1.73m^2); Glucose 131 mg/dL (74-106); Potassium 4.1 mmol/L (3.5-5.1); Sodium 143 mmol/L (136-145)
== END 2025-04-25 07:11 | disposition home or self-care (01) ==
LOC: LAB 07:12
PROVIDERS: PCP Internal Medicine; Visit Provider Internal Medicine Interventional Cardiology
DX: I35.0 Nonrheumatic aortic (valve) stenosis (principal)
CPT/HCPCS: 36415; 80048

== ENCOUNTER 2025-05-23 08:07 | Outpatient (OUT) | payer MEDICARE, SELFPAY ==
--- NOTE | 2025-05-23 08:00 | CA_ITS ---
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 DESCRIPTION: COMPLETE ECHOCARDIOGRAM Real-time transthoracic echocardiography with 2D, M-mode, spectral and color flow Doppler performed. QUALITY: Technical quality was good. LEFT VENTRICLE: Normal chamber size. Moderate concentric left ventricular hypertrophy. Hyperdynamic systolic function. Calculated left ventricular ejection fraction is 74%. LV EF: Hyperdynamic left ventricular ejection fraction, (>70%). DIASTOLIC: Grade 2 diastolic dysfunction. ATRIAL SEPTUM: Visually appears intact. LEFT ATRIUM: Moderate dilatation. RIGHT ATRIUM: Normal chamber size. RIGHT VENTRICLE: Normal chamber size. Normal systolic function. TRICUSPID VALVE: Normal mobility and thickness. No stenosis with mild regurgitation. Doppler studies reveal mildly (35-45) elevated right sided pressures. RVSP 44 mmHg MITRAL VALVE: Normal mobility and thickness. Posterior leaflet prolapse. No evidence of mitral valve stenosis. There is no mitral annular calcification. Moderate mitral regurgitation with an eccentric jet. AORTIC VALVE: Bio-Prosthetic TAVR valve appears well seated in the aortic position with normal leaflet motion. Increased Doppler velocities across the valve are likely related to hyperdynamic contractility. Peak velocity 3.0 m/s, mean gradient 21 mmHg. No aortic regurgitation. AORTIC ROOT: Normal diameter and appearance, measuring 3.8 cm. Ascending aorta is normal in size, measuring 3.5 cm. PULMONIC VALVE: Normal thickness and mobility. No stenosis. No regurgitation. PERICARDIUM: No evidence of pericardial effusion. IVC: Collapses with inspiration. IVC is normal in size. PLEURA: CONCLUSION: 1. Moderate concentric left ventricular hypertrophy with hyperdynamic systolic function. Calculated LVEF is 74%. 2. Normal right ventricular size and systolic function. 3. Grade 2 diastolic dysfunction. 4. Bioprosthetic TAVR valve is well-seated with normal leaflet motion and no regurgitation. Increased velocities are likely related to hyperdynamic contractility of the ventricle. 5. Moderate mitral regurgitation. 6. Mild tricuspid regurgitation. 7. Mildly elevated right-sided pressures. RVSP is 44 mmHg. Adult Echocardiography Procedure Report Left Ventricle LVEDD (3.7 - 5.6 cm): 4.73 cm LVESD (2.2 - 4.0 cm): 4.17 cm LVIVS thickness (0.6 - 1.2 cm): 1.29 cm LVPW thickness (0.5 - 1.0 cm): 1.51 cm e': 0.09 m/s E - e': 9.94 LVOT Max Gradient: 2.64 mm[Hg] LVOT Area (cm2): 0.81 m/s Peak Velocity (LVOT): 0.81 m/s Mean Velocity (LVOT): 0.56 m/s LVOT Diameter 2.39 cm Left Ventricular Ejection Fraction: 73.52 % Left Atrium LA Volume Index (2D A2C): 42.61 ml/m2 Left Atrium Systolic Dimension: 4.33 cm Mitral Valve MV E to A Ratio: 1.20 Mitral Valve A-Wave Peak Velocity: 0.73 m/s Mitral Valve E-Wave Peak Velocity: 0.87 m/s Right Ventricle Aorta AO Root Diam: 3.76 cm Ascending Ao Diam: 3.51 cm Aortic Valve AoV Area (Peak Freddy): 1.20 cm2, 1.20 cm2 AoV Area (VTI): 1.16 cm2, 1.16 cm2 Peak Velocity(Antegrade Flow): 3.03 m/s Peak Gradient(Antegrade Flow): 36.74 mm[Hg] Mean Velocity(Antegrade Flow): 2.22 m/s Mean Gradient(Antegrade Flow): 21.43 mm[Hg] Velocity Time Integral: 72.77 cm Tricuspid Valve Peak Velocity (Regurgitant Flow): 3.20 m/s Pulmonic Valve Peak Gradient: 4.69 mm[Hg], 5.73 mm[Hg] Right Atrium Right Atrium Systolic Pressure: 49.47 ml, 49.47 ml Dictated by: Richard Stevens M.D. on 05/23/2025 at 21:51 Approved by: Richard Stevens M.D. on 05/23/2025 at 22:05
--- OUTSIDE RECORDS SUMMARY | 2025-05-23 08:11 | XMS_ITS | CCD ---
Author Organization [facility] Care Team Providers Care Wine Sales Representative Name Role Phone PHYSICIAN, DEFAULT Unavailable Unavailable PHYSICIAN, DEFAULT Unavailable Unavailable DO Devonte Lambert Attending Provider PAT SINCLAIR Admitting Unavailable PAT SINCLAIR Attending Unavailable JEWEL, DR SZYMANSKI Primary Care Unavailable PAT SINCLAIR Consulting Unavailable JANETT, DR QUINONES Admitting Unavailable JANETT, DR QUINONES Attending Unavailable JEWEL, DR SZYMANSKI Primary Care Unavailable DES MOINES, DR CHICO Medina Consulting Unavailable JANETT, DR QUINONES Consulting Unavailable PAT SINCLAIR Admitting Unavailable PAT SINCLARI Attending Unavailable JEWEL, DR SZYMANSKI Primary Care Unavailable PAT SINCLAIR Consulting Unavailable DO Devonte Lambert Attending Provider NO FAMILY, PHYSICIAN Primary Care Provider Unava ilMD Liu Sierra Attending Provider FREEMAN Benito Primary Care Provider Liu Dawkins Attending Unavailable Galindo Benito Primary Care Unavailable Liu Dawkins Admitting Unavailable ItDevonte cannon Admitting Unavailable Devonte Lambert Attending Unavailable NO FAMILY, PHYSICIAN Primary Care Unavailable Galindo Benito MD Primary Care Provider Monie Prado MD Unavailable JONI ROWLAND Referring Unavailable JONI ROWLAND Attending Unavailable JONI ROWLAND Attending Unavailable JONI ROWLAND Referring Unavailable JONI ROWLAND Referring Unavailable CHAVO CHAVEZ Referring Unavailable JONI ROWLAND Referring Unavailable GEOVANNA RAMOS Referring Unavailable GEOVANNA RAMOS Referring Unavailable JONI ROWLAND Admitting Unavailable JONI ROWLAND Attending Unavailable MOUKARBEL, JONI Admitting Unavailable JONI ROWLAND Attending Unavailable MICAH BERRY Attending Unavailable EDWINA OLVERA Attending Unavailable GEOVANNA RAMOS Referring Unavailable PAT SINCLAIR Attending Unavailable JONI ROWLAND Referring Unavailable JONI ROWLAND Referring Unavailable JONI ROWLAND Referring Unavailable BRIANA BACON Attending Unavailable BRIANA BACON Attending Unavailable Medications Current Medications Medication Drug Class(es) Dates Sig (Normalized) Sig (Original) aspirin 81 mg delayed release oral tablet (4 sources) Platelet Aggregation Inhibitor, Nonsteroidal Anti-inflammatory Drug Start: 05-01-2025 End: 05-14-2025 take 1 tablet by mouth once daily aspirin 81 MG EC tablet Take 1 tablet (81 mg) by mouth Daily 05/01/2025 05/14/2025 Discontinued (Therapy completed) Start: 04-30-2025 End: 04-30-2026 aspirin 81 MG chewable table t Chew 81 mg in the morning. Chew with meals. 04/30/2025 04/30/2026 Active atorvastatin 20 mg oral tablet (2 sources) HMG-CoA Reductase Inhibitor Start: 05-01-2025 End: 10-28-2025 take 1 tablet by mouth once daily atorvastatin (Lipitor) 20 MG tablet Indications: Rheumatic aortic stenosis Take 1 tablet (20 mg) by mouth Daily 30 tablet 5 05/01/2025 10/28/2025 Active Glucos Sul 5rxb-Fqv-Hrije-C-Mn (Glucosamine Chondroitin) 550-30-1 mg Capsule (1 source) Start: 02-07-2023 take 1 capsule by mouth once daily Glucos Sul 3lcz-Qry-Vzcys-C-M n (Glucosamine Chondroitin) 550-30-1 mg Capsule Active 1 CAP PO Daily February 07, 2023 12:00am glucosamine sulfate 500 mg oral capsule (7 sources) Glucosamine 500 MG capsule 1 (one) time each day at the same time. 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; Translations: [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] Onset: 03-18-2025 Chronic Diabetes mellitus without complication (4 sources) Type 2 diabetes mellitus without complication; Translations: [Type 2 diabetes mellitus without complications] Onset: 05-15-2023 12-04-2024 Chronic Disorders of lipid metabolism (20 sources) Hyperlipidemia, unspecified; Translations: [Hyperlipidemia] Onset: 11-15-2022 07-24-2023 Chronic Essential hypertension (12 sources) Essential (primary) hypertension; Translations: [Essential hypertension] Onset: 11-15-2022 07-24-2023 Chronic Heart valve disorders (14 sources) Nonrheumatic aortic (valve) stenosis; Translations: [Nonrheumatic mitral (valve) insufficiency] Onset: 05-19-2022 Chronic Hyperplasia of prostate (9 sources) Benign prostatic hypertrophy without outflow obstruction; [...] for malignant neoplasm of prostate] 12-04-2024 Episodic Pulmonary heart disease (2 sources) Pulmonary hypertension; Translations: [Pulmonary hypertension, unspecified] 05-14-2025 Chronic Unclassified (3 sources) THORAC AORTC ANEURYSM W/O RUPTR UNS; Translations: [THORAC AORTC ANEURYSM W/O RUPTR UNS] Onset: 12-15-2022 Unclassified (1 source) Aneurysm of the ascending aorta, without rupture; Translations: [Aneurysm of the ascending aorta, without rupture] Onset: 05-15-2023 Past or Other Problems Problem Classification Problem Date Documented Da te Episodic/Chronic Calculus of urinary tract (9 sources) Uric acid urolithiasis; Translations: [Urinary calculus, unspecified] Onset: 07-24-2023 07-24-2023 Episodic Diabetes mellitus without complication (7 sources) Impaired glucose tolerance; Translations: [Impaired glucose tolerance (oral)] Onset: 07-24-2023 07-24-2023 Episodic Heart valve disorders (9 sources) Mid-systolic murmur; Translations: [Cardiac murmur, unspecified] Onset: 07-24-2023 07-24-2023 Episodic Mood disorders (7 sources) Mood disorders Onset: 07-26-2023 07-26-2023 Unclassified (1 source) THORAC AORTC ANEURYSM W/O RUPTR UNS; Translations: [THORAC AORTC ANEURYSM W/O RUPTR UNS] Onset: 12-05-2022 Unclassified (1 source) Aneurysm of the ascending aorta, without rupture; Translations: [Aneurysm of the ascending aorta, without rupture] Onset: 01-08-2025 Results Test Name Value Interpretation Reference Range Facility Follow-Upon 05-08-2025 Follow-Up [id number] Cameron Locke 1940 M Date Provider Department Center 05/08/2025 [facility] Family History Problem Relation Age of Onset Kidney disease Mother Hyperlipidemia Father Aneurysm Father Coronary artery disease Sister Cancer Sister Coronary artery disease Brother Family Status - Relation Status Age at Mother Father Sister Brother Alive Level of Service:29090 [place] OFFICE/OUTPATIENT ESTABLISHED MOD MDM 30 MIN [facility] 05-05-2025 36 Has 1 week follow-up scheduled? Yes, 05/08/25 Has 30 day echo and follow-up visit scheduled? Yes, Any trouble breathing? No Any fever above 100 degrees or chills? No Persistent throat soreness? No Access site: Hematoma: Estimated size? None Ecchymosis:No Drainage? If so, is it clear? None Neuro: Any vision changes or blurred vision? No Transient loss of peripheral vision? No Any slurred speech or episodes of confusion? No Fluid retention: Any changes to urinary output? Was a little dark initally but now clear, yellow Reminded of dental prophylaxis? (Lifetime for valve): yes Pt stated he is doing well and is aware of his follow up appointments. Pt stated has reached out and scheduled his one month echo as well. Pt was not sure of when to start cardiac rehab but plans to discuss this at his follow up appt on . No additional questions or concerns. [facility] 05-01-2025 36 Post Discharge Call Good morning, I am Gerda Gutierrez RN a lead nurse from [facility]. I am calling you to follow up on your stay with us and make sure all of your questions have been answered. You will be receiving a survey either electronic or via mail and we always aim to receive 9???s and 10???s. If there is any reason you feel as though you cannot give us these scores please indicate that now. 1. How have you been feeling since being discharged from the hospital? I have been feeling pretty good today 2. Did you understand your discharge instructions when they were given to prior to leaving? Yes Were you given an opportunity to ask questions? Yes 3. While a patient in the hospital, was your call light answered in a timely manner? Yes 4. Do have access to all medications that were prescribed to you at discharge? Yes 5. How would you rate your overall stay on a scale of 0-10, 10 being the best experience you have ever had. 10 6. Do you have any further questions you would like to discuss? No Patient Name Giuseppe Locke Date 05/01/25 Normal [facility] Telephoneon 05-01-2025 Telephone [id number] Cameron Locke 1940 M Date Provider Department Center 05/01/2025 [id number] PONCE [facility] IN HeartVAS Family History Problem Relation Age of Onset Kidney disease Mother Hyperlipidemia Father Aneurysm Father Coronary artery disease Sister Cancer Sister Coronary artery disease Brother Family Status - Relation Status Age at Mother Father Sister Brother Alive Reason for Visit and Comments: S/P TAVR [Other] Normal [facility] 30on 04-30-2025 30 The patient is Moderately Stable - Low risk of patient condition declining or worsening The patient's goals for the shift include comfort The clinical goals for the shift include hemodynamically stable Problem: Pain - Adult Goal: Verbalizes/displays adequate comfort level or baseline comfort level Outcome: Progressing Problem: Safety - Adult Goal: Free from fall injury Outcome: Progressing Problem: Discharge Planning Goal: Discharge to home or other facility with appropriate resources Outcome: Progressing Problem: Chronic Conditions and Co-morbidities Goal: Patient's chronic conditions and co-morbidity symptoms are monitored and maintained or improved Outcome: Progressing Normal [facility] BASIC METABOLIC PANELon 04-09 Anion gap [Moles/Vol] 10 mmol/L Normal 7-20 [facility] Comment on above: Performed By: #### L [id number] #### [facility] (BEAKER) [address] [place] [address] Calcium [Mass/Vol] 8.8 mg/dL Normal 8.6-10.3 [facility] Comment on above: Performed By: #### L [id number] #### [facility] ([facility]) [address] [place] [address] Chloride [Moles/Vol] 105 mmol/L Normal 98-107 [facility] Comment on above: Performed By: #### L [id number] #### [facility] (BEAKER) [address] [place] [address] CO2 [Moles/Vol] 25 mmol/L Normal 21-31 [facility] Comment on above: Performed By: #### L [id number] #### [facility] ([facility] [address] [place] [address] Creatinine [Mass/Vol] 0.77 mg/dL Normal 0.70-1.30 [facility] Comment on above: Performed By: #### L [id number] #### [facility] ([facility]) [address] [place] [address] GLOMERULAR FILTRATION RATE ML/MIN/1.73 SQ M.PREDICTED 88.8 mL/min/1.73m*2 Normal >60.0 [facility] Comment on above: Result Comment: The [facility]???s estimated glomerular filtration rate (eGFR) will [...] group of individuals. Performed By: #### L [id number] #### [facility] ([facility]) [address] [place] [address] Glucose [Mass/Vol] 135 mg/dL High 70-100 [facility] Comment on above: Performed By: #### L [id number] #### [facility] ([facility]) [address] [place] [address] Potassium [Moles/Vol] 4.0 mmol/L Normal 3.5-5.1 [facility] Comment on above: Performed By: #### L [id number] #### [facility] ([facility]) [address] [place] [address] Sodium [Moles/Vol] 136 mmol/L Normal 136-145 [facility] Comment on above: Performed By: #### L [id number] #### [facility] ([facility]) [address] [place] [address] Urea nitrogen [Mass/Vol] 15 mg/dL Normal 7-25 [facility] Comment on above: Performed By: #### L [id number] #### [facility] ([facility]) [address] [place] [address] UREA NITROGEN/CREATININ E (MASS RATIO) IN SER/PLAS 19.5 Normal [facility] Comment on above: Performed By: #### L [id number] #### [facility] ([facility]) [address] [place] [address] CBCon 04-30-2025 Erythrocyte distribution width (RBC) [Ratio] 12.9 % Normal 11.5-15.0 [facility] Comment on above: Performed By: #### L [id number] #### [facility] ([facility]) [address] [place] [address] ERYTHROCYTE MEAN CORPUSCULAR HEMOGLOBIN CONCENTRATION (G/DL) BY AUTOMATED 34.6 g/dL Normal 32.0-35.0 [facility] Comment on above: Performed By: #### L [id number] #### [facility] ([facility]) [address] [place] [address] Hematocrit (Bld) [Volume fraction] 36.1 % Low 39.0-50.0 [facility] Comment on above: Performed By: #### L [id number] #### [facility] ([facility]) [address] [place] [address] Hemoglobin (Bld) [Mass/Vol] 12.5 g/dL Low 13.0-17.0 [facility] Comment on above: Performed By: #### L [id number] #### [facility] ([facility]) [address] [place] [address] MCH (RBC) [Entitic mass] 32.6 pg Normal 27.0-33.0 [facility] Comment on above: Performed By: #### L [id number] #### [facility] ([facility]) [address] [place] [address] MCV (RBC) [Entitic vol] 94.3 fL Normal 82.0-98.0 [facility] Comment on above: Performed By: #### L [id number] #### [facility] ([facility]) [address] [place] [address] PLATELETS (10*3/UL) IN BLOOD AUTOMATED COUNT 195 10*3/uL Normal 150-400 [facility] Comment on above: Performed By: #### L [id number] #### [facility] ([facility]) [address] [place] [address] RBC (Bld) [#/Vol] 3.83 10*6/uL Low 4.20-5.70 [facility] Comment on above: Performed By: #### L [id number] #### [facility] ([facility]) [address] [place] [address] WBC (Bld) [#/Vol] 12.14 10*3/uL High 4.00-10.60 [facility] Comment on above: Performed By: #### L [id number] #### [facility] ([facility]) [address] [place] [address] DSon 04-30-2025 DS Admission Admitted 04/29/2025 for Nonrheumatic aortic valve stenosis Discharge Diagnosis Aortic valve stenosis Discharge Disposition Home or Self Care () Discharge Medications Your medication list START taking these medications Instructions Last Dose Given Next Dose Due aspirin 81 mg chewable tablet Chew 1 tablet (81 mg) with breakfast. CONTINUE taking these medications Instructions Last Dose Given Next Dose Due atorvastatin 20 mg tablet Commonly known as: Lipitor Take 1 tablet (20 mg) by mouth in the morning. lisinopril 5 mg tablet Take 1 tablet (5 mg) by mouth in the morning. Where to Get Your Medications These medications [facility] [place] [place] [facility] [place] [address] [facility] [place] [address] [facility] [address] aspirin 81 mg chewable tablet Activity ACTIVITY: , Unless otherwise instructed you may: , ??? Resume normal activity in two days, including driving, letting pain be your guide. , ??? Limit lifting over 10 pounds for one week or until wound heals. Showering instructions: , You may shower 24 hours after the procedure. Remove the bandage from the hospital before showering. , ??? Gently clean site using soap and water while standing in the shower. Dry thoroughly. , ??? Cleaning the site with soap and water is sufficient. Do not apply antibiotic ointments, powders or lotions. , ??? Cover the site after 24 hours with a square adhesive Band-Aid that seals and covers the area well. , ??? Keep the site clean and dry to prevent infection. If the bandage becomes wet, remove that one and put on a new one. , ??? Do not sit in a bathtub, pool, or hot tub for seven days or until wound has healed. , ??? Inspect the site daily. Diet Continue on the same type of diet and foods as you were eating before your admission. Drink plenty of water. Allergies Patient has no known allergies. Hospital Course Giuseppe Locke is an 84-year-old male with a history of hypertension, ascending aortic aneurysm (4.3 cm), and bicuspid aortic valve with severe aortic stenosis. He was referred for TAVR due to symptomatic stage D1 non-rheumatic aortic valve stenosis. On 04/29/2025, the patient underwent a successful transcatheter aortic valve replacement (TAVR) with a 29 mm Lagunas CORBIN 3 Ultra RESILIA valve via transfemoral access. The procedure was well-tolerated with no complications. The patient was hemodynamically stable, and post-procedure echocardiogram showed a 2 mmHg mean transvalvular gradient and no perivalvular leak. Vascular access sites were properly closed, and the temporary pacemaker was removed without issue. Groin site intact no signs of hematoma, bruit, pseudoaneurysm. Denies pain or tenderness from the site. Distal pulses palpable. TTE on post-op day 1 today (04/30/2025) shows a mild posterior perivalvular leak following TAVR with a well-seated bioprosthetic valve, low mean gradient (6 mmHg). Patient has 1 week follow-up appointment with Tata Sinclair 05/08/2025, and with Dr. Rowland 05/26/2025. Pertinent Physical Exam At Time of Discharge Physical Exam Lab Results Labs Reviewed CBC - Abnormal Result Value Auto WBC 12.14 (*) RBC 3.83 (*) Hemoglobin 12.5 (*) Hematocrit 36.1 (*) MCV 94.3 MCH 32.6 MCHC 34.6 RDW 12.9 Platelets 195 BASIC METABOLIC PANEL - Abnormal Sodium 136 Potassium 4.0 Chloride 105 CO2 25 BUN 15 Creatinine 0.77 Glucose 135 (*) Calcium 8.8 Anion Gap 10 eGFR 88.8 BUN/Creatinine Ratio 19.5 ACTIVATED CLOTTING TIME - Abnormal Activated Clotting Time 335 (*) ACTIVATED CLOTTING TIME - Normal Activated Clotting Time 146 TYPE AND SCREEN ABO Grouping A Rh Type POS Ab Scrn NEG INSTRUCTIONS FOR SELF CARE AFTER CARDIAC TESTING WITH GROIN ACCESS CARE FOR YOUR INCISION: ??? You may shower 24 hours after the procedure. Remove the bandage from the hospital before showering. ??? Gently clean site using soap and water while standing in the shower. Dry thoroughly. ??? Cleaning the site with soap and water is sufficient. Do not apply antibiotic ointments, powders or lotions. ??? Cover the site after 24 hours with a square adhesive Band-Aid that seals and covers the area well. ??? Keep the site clean and dry to prevent infection. If the bandage becomes wet, remove that one and put on a new one. ??? Do not sit in a bathtub, pool, or hot tub for seven days or until wound has healed. ??? Inspect the site daily. ACTIVITY: Unless otherwise instructed you may: ??? Resume normal activity in two days, including driving, letting pain be your guide. ??? Limit lifting over 10 pounds for one week or until wound heals. NORMAL OBSERVATIONS: ??? Soreness or tenderness that may last one week. ??? Mild oozing from incision site. ??? A certain amount of bruising is normal and could last up to two weeks. ??? Formation of a (more content not included)... Normal [facility] HPon 04-29-2025 H&P reviewed. The patient was examined and there are no changes to the H&P. he was discussed at the multidisciplinary team meeting with interventional cardiology and cardiothoracic surgery and deemed to be appropriate for TAVR and higher risk candidate for SAVR. STS-PROM is 5.13% and risk of mortality/mobidity is 17.6%. Shared decision making was performed with him and he agreed to TAVR. he is brought today for the procedure. [facility] NURSNOTEon 04-29-2025 NURSNOTE CHG wipes and betadi ne nasal swabs completed. [facility] OPNOTEon 04-29-2025 OPNOTE TAVR Operative Note Date: 04/29/2025 Location: [facility] (Cath) Name: Giuseppe Locke, : 1940, Diagnosis Pre-op Diagnosis * Nonrheumatic aortic valve stenosis [I35.0] Post-op Diagnosis * Nonrheumatic aortic valve stenosis [I35.0] Procedures * TAVR Procedure Summary Anesthesia: Moderate Sedation ASA: ASA status not filed in the log. Estimated Blood Loss: 30 mL Drains: * None in log * Implants Type Name Action Serial No. Pacemaker ELECTRODE,PACING,TEMP,5F ,110CM - [id number] Implanted Prosthetic Valve KIT,HEART VALVE,SAPIEN3,29MM - [id number] - [id number] Implanted [id number] Staff: Extruding Department Supervisor: Orion Spence RN; Mary Sams RN Scrub Person: Rosalind Skaggs, RT Documenter: Bethany Amos RN Invasive Nurse: Jossie Encarnacion RN INDICATION: Giuseppe Locke is a 84 y.o. male with severe symptomatic stage D1 non-rheumatic aortic valve stenosis. he was evaluated in Cardiology and Cardiothoracic Surgery Clinics, and was deemed appropriate for TAVR as treatment for his aortic valve stenosis. he had shared decision making and agreed to the procedure. he is brought today for that purpose. PROCEDURES: Successful transcatheter aortic valve replacement using a 29 mm Lagunas CORBIN 3 Ultra RESILIA valve deployed at nominal volume +1 ml via percutaneous transfemoral access. Aortic root angiography. Placement of a temporary pacemaker wire. Left heart catheterization. Access into the right internal jugular vein, right and left common femoral arteries under ultrasound guidance. Preclosure in the right common femoral artery using two 6-Peruvian ProGlide devices. Angio-Seal vascular closure in the left common femoral artery. OPERATORS: Interventional Cardiology Livestock Breeder: Joni Rowland MD Cardiac Surgery Livestock Breeder: Chavo Chavez MD Food Science Technician Interventional Cardiology Livestock Breeder: Brian Aguilera METHODS: Procedure was explained to the patient with risks and benefits. he signed informed consent. he was brought to labeling machine operator in a fasting state. The procedure was performed in the cardiac labeling machine operator under conscious sedation. Both groin areas, and the right neck area were prepped and draped in usual fashion. Ultrasound guidance was used for micropuncture access in the right internal jugular vein and a 6-Peruvian x 11 cm introducer sheath was secured in place. Micropuncture technique and ultrasound guidance were used for access in the right common femoral artery and inner cannula angiography was performed followed by upsizing to a 6-Peruvian x 11 cm sheath. The same was done for the access in the left common femoral artery. At this time, we proceeded with the preclosure in the right common femoral artery using 2 crossing Perclose devices and the access was then upsized over a wire to a 11-Peruvian sheath. A 5-Peruvian balloon-tipped pacemaker wire was advanced through the internal jugular vein sheath to the right ventricular apex and adequate capture was confirmed. Heparin was given intravenously and therapeutic ACT confirmed during the rest ofthe procedure and additional heparin given as needed. Through the left common femoral sheath, an angled 6-Peruvian pigtail catheter was then advanced to the ascending aorta and placed in the noncoronary cusp. Aortic root angiography was performed in the coplanar view as determined by prior CT scan measurements. The right common femoral access was then upsized using an exchange length Lunderquist wire [which was placed through a multipurpose catheter] to the 18-Peruvian Lagunas E-sheath. The sheath was secured in place. A 6-Peruvian AL1 diagnostic catheter was advanced via the E-sheath, and using a straight stiff Glidewire, the aortic valve was crossed and the catheter was advanced in the left ventricular cavity, and using an exchange length J-wire, a 6-Peruvian angled pigtail catheter was advanced to make sure no entanglement under mitral valve apparatus. The pigtail catheter was then used to place an exchange length Amplatz Extra Stiff wire with a distal curve. Based on the prior CT scan measurements, we proceeded with a Lagunas CORBIN 3 Ultra RESILIA 29 mm valve. This was prepped using standard technique at nominal volume +1 ml. The valve was then advanced over the wire and across the aortic valve. Aortic root angiography in the coplanar view was performed confirming adequate valve position. Under rapid pacing at 200 beats per minute, the valve was deployed. The balloon was deflated, and pacing was stopped. The delivery catheter was retracted. The delivery catheter of the valve was exchanged over the wire to a 6-Peruvian angled pigtail catheter which was advanced across the valve into the left ventricular cavity and used to perform left heart catheterization and assessment of the valvular gradient. There was 3.6 mm Hg mean transvalvular gradient. Echocardiography was performed showing no perivalvular leak and 2 mmHg (more content not included)... Normal [facility] TYPE AND SCREENon 04-29-2025 AB SCREEN Negative Normal [facility] Comment on above: Performed By: #### L [id number] #### [facility] BLOOD BANK , ABO group Nom (Bld) A Normal [facility] Comment on above: Performed By: #### L [id number] #### [facility] BLOOD BANK , RH TYPE IN BLOOD Positive Normal [facility] Comment on above: Performed By: #### L [id number] #### [facility] BLOOD B[facility] , ALL CBC WITH AUTO DIFFon BASOPHILS ABSOLUTE AUTO 0.1 [facility] Basophils/100 WBC (Bld) 1.1 % 0.2 - 2.0 % [facility] Eosinophils/100 WBC (Bld) 10.3 % High 0.9 - 7.0 % [facility] Erythrocyte distribution width (RBC) [Ratio] 12.6 % 11.0 - 15.0 % [facility] Hematocrit (Bld) [Volume fraction] 38.8 % Low 42.0 - 54.0 % [facility] Hemoglobin (Bld) [Mass/Vol] 13.6 g/dL Low 14.0 - 18.0 g/dL [facility] IMMATURE GRANULOCYTES ABS AUTO 0.02 [facility] Immature granulocytes/100 WBC (Bld) 0.2 % 0.0 - 0.5 % [facility] Interpretation and review of laboratory results Abnormal [facility] LYMPHOCYTES ABSOLUTE AUTO 3.5 [facility] Lymphocytes/100 WBC (Bld) 42.4 % 20.5 - 60.0 % [facility] MCH (RBC) [Entitic mass] 33.3 pg 25.9 - 34.[address] [facility] MCHC (RBC) [Mass/Vol] 35.1 g/dL 29.9 - 35.2 g/dL [facility] MCV (RBC) [Entitic vol] 95.1 fL High 80.0 - 94.0 fL [facility] MONOCYTES ABSOLUTE AUTO 0.9 High [facility] Monocytes/100 WBC (Bld) 10.7 % 1.7 - 12.0 % [facility] NEUTROPHILS ABSOLUTE AUTO 3 [facility] Neutrophils/100 WBC (Bld) 35.3 % Low 43.0 - 75.0 % [facility] Platelet mean volume (Bld) [Entitic vol] 9.7 fL 9.5 - 13.5 fL [facility] TBH EO # 0.9 High [facility] TBH PLT 212 [facility] RBC 4.08 Low [facility] TBH WBC 8.4 [facility] Orders Onlyon 04-24-2025 Orders Only [id number] Cameron Locke s E 1940 M Date Provider Department Center 04/24/2025 MARY KAY BOLTON [facility] VASC LAB IN HeartVAS Family History Problem Relation Age of Onset Kidney disease Mother Hyperlipidemia Father Aneurysm Father Coronary artery disease Sister Cancer Sister Coronary artery disease Brother Family Status - Relation Status Age at Mother Father Sister Brother Alive [facility] Orders Onlyon 04-22-2025 Orders Only [id number] Cameron Locke s E 1940 M Date Provider Department Center 04/22/2025 GEOVANNA YUSUF [facility] CARD IN HeartVAS Family History Problem Relation Age of Onset Kidney disease Mother Hyperlipidemia Father Aneurysm Father Coronary artery disease Sister Cancer Sister Coronary artery disease Brother Family Status - Relation Status Age at Mother Father Sister Brother Alive [facility] Orders Onlyon 04-05-2025 Orders Only [id number] Cameron Locke s E 1940 M Date Provider Department Center 04/05/2025 GEOVANNA YUSUF [facility] CARD IN HeartVAS Family History Problem Relation Age of Onset Kidney disease Mother Hyperlipidemia Father Aneurysm Father Coronary artery disease Sister Cancer Sister Coronary artery disease Brother Family Status - Relation Status Age at Mother Father Sister Brother Alive [facility] Consulton 04-01-2025 Consult [id number] Cameron Locke s E 1940 M Date Provider Department Center 04/01/2025 Uma-EDWINA OLVERA HVCTS IN HeartVAS Family History Problem Relation Age of Onset Kidney disease Mother Hyperlipidemia Father Aneurysm Father Coronary artery disease Sister Cancer Sister Coronary artery disease Brother Family Status - Relation Status Age at Mother Father Sister Brother Alive Level of Service:38853 [place] OFFICE/OP CONSLTJ NEW/EST PT HIGH MDM 55 MINUTES Reason for Visit and Comments: New Patient [632] [facility] Orders Onlyon 03-20-2025 Orders Only [id number] Cameron Locke 1940 M Date Provider Department Center 03/20/2025 GEOVANNA YUSUF [facility] CARD IN HeartVAS Family History Problem Relation Age of Onset Kidney disease Mother Hyperlipidemia Father Aneurysm Father Coronary artery disease Sister Cancer Sister Coronary artery disease Brother Family Status - Relation Status Age at Mother Father Sister Brother Alive [facility] HPon 03-18-2025 HP H&P reviewed. The patient was examined and there are no changes to the H&P. Discussed risks, benefits, and alternative therapies with the patient, he understands and willing to proceed with RHC/coronary angiogram and possible PCI. Josie Steel MD PGY-7 Interventional Market Reporter [facility] NURSNOTEon 03-18-2025 NURSNOTE RN educated pt [...] any questions or concerns if pt verbalized. [facility] ALL CBC WITH AUTO DIFFon BASOPHILS ABSOLUTE AUTO 0.1 [facility] Basophils/100 WBC (Bld) 1.1 % 0.2 - 2.0 % [facility] Eosinophils/100 WBC (Bld) 8.9 % High 0.9 - 7.0 % [facility] Erythrocyte distribution width (RBC) [Ratio] 12.7 % 11.0 - 15.0 % [facility] Hematocrit (Bld) [Volume fraction] 37.6 % Low 42.0 - 54.0 % [facility] Hemoglobin (Bld) [Mass/Vol] 13.1 g/dL Low 14.0 - 18.0 g/dL [facility] IMMATURE GRANULOCYTES ABS AUTO 0.02 [facility] Immature granulocytes/100 WBC (Bld) 0.2 % 0.0 - 0.5 % [facility] Interpretation and review of laboratory results Abnormal [facility] LYMPHOCYTES ABSOLUTE AUTO 3.3 [facility] Lymphocytes/100 WBC (Bld) 40.4 % 20.5 - 60.0 % [facility] MCH (RBC) [Entitic mass] 32.9 pg 25.9 - 34.[address] [facility] MCHC (RBC) [Mass/Vol] 34.8 g/dL 29.9 - 35.2 g/dL [facility] MCV (RBC) [Entitic vol] 94.5 fL High 80.0 - 94.[address] [facility] MONOCYTES ABSOLUTE AUTO 0.[address] [facility] Monocytes/100 WBC (Bld) 10.6 % 1.7 - 12.0 % [facility] NEUTROPHILS ABSOLUTE AUTO 3.1 [facility] Neutrophils/100 WBC (Bld) 38.8 % Low 43.0 - 75.0 % [facility] Platelet mean volume (Bld) [Entitic vol] 9.8 fL 9.5 - 13.[address] [facility] TBH EO # 0.7 [facility] TB PLT 213 [facility] RBC 3.[address] [facility] TB WBC 8.1 [facility] Abstracton 02-28-2025 Abstract [id number] Cameron Locke 1940 [facility] Provider Department Center 02/28/2025 JONI BELLA [facility] Medical C Family History Problem Relation Age of Onset Kidney disease Mother Hyperlipidemia Father Aneurysm Father Coronary artery disease Sister Cancer Sister Coronary artery disease Brother Family Status - Relation Status Age at Mother Father Sister Brother Alive Normal [facility] 02-17-2025 [facility] Cardiology - [facility] Subjective Giuseppe Locke is a [...] cm by prior echocardiogram and CT scan ([id number]). He also has aortic aneurysm that is [...] AV V (more content not included)... Normal [facility] Office Visiton 02-17-2025 Follow-up visit [id number] Cameron Locke 1940 M Date Provider Department Center 02/17/2025 JONI BELLA [facility] Family History Problem Relation Age of Onset Kidney disease Mother Hyperlipidemia Father Aneurysm Father Coronary artery disease Sister Cancer Sister Coronary artery disease Brother Family Status - Relation Status Age at Mother Father Sister Brother Alive Level of Service:04840 [place] OFFICE/OUTPATIENT ESTABLISHED HIGH MDM 40 MIN Normal [facility] CREATININE, SERUMon 01-23-20 25 Creatinine [Mass/Vol] 0.87 mg/dL Normal 0.70-1.30 [facility] Comment on above: Performed By: #### L [id number] ####[facility] ([facility])[address] [place] [address] GLOMERULAR FILTRATION RATE ML/MIN/1.73 SQ M.PREDICTED 85.6 mL/min/1.73m*2 Normal >60.0 [facility] Comment on above: Result Comment: [facility]???s estimated glomerular filtration rate (eGFR) will [...] of individuals. Performed By: #### L [id number] ####[facility] ([facility])[address] [place] [address] [facility]A ABDOMEN PELVIS W IV CONTRAST [...] Marquez MD. Not Vldtd Invalid Interpretation Code [facility] Comment on above: Order Comment: TAVR [...] 3 cusped view, anterior view, and no INCOME TAX AUDITOR-CAU view are obtained. The annulus measures 31.1 [...] Marquez MD. Not Vldtd Invalid Interpretation Code [facility] Comment on above: Order Comment: TAVR protocol HPon 01-22-2025 HP ---- -------- Attestation signed by Musa Sheth MD at 01/22/2025 9:48 AM I personally saw and examined the patient on the same date of service as resident/fellow Dr singleton. I discussed the findings and therapeutic plan with the resident/fellow Dr Singleton. I agree with the documentation, except for any edits/updates below. Teaching Physician's Revisions: None Musa Sheth MD, [facility] -------- H&P reviewed. The patient was examined and there are no changes to the H&P. Normal [facility] Labon 01-22-2025 Lab [id number] Cameron Locke 1940 M Date Provider Department Center 01/22/20251-[facility] OPD LAB RESOURCE [facility] OPD IN Medical C Family History Problem Relation Age of Onset Kidney disease Mother Hyperlipidemia Father Aneurysm Father Coronary artery disease Sister Coronary artery disease Brother Family Status - Relation Status Age at Mother Father Sister Brother Normal [facility] NURSNOTEon 01-22-2025 NURSNOTE Bedside swallow [...] off of unit with all of belongings. [facility] Telephoneon 01-15-2025 Telephone [id number] Cameron Locke 1940 M Date Provider Department Center 01/15/2025 NIHARIKA LEACH [facility] VASC LAB IN HeartVAS Family History Problem Relation Age of Onset Kidney disease Mother Hyperlipidemia Father Aneurysm Father Coronary artery disease Sister Coronary artery disease Brother Family Status - Relation Status Age at Mother Father Sister Brother [facility] HPon 01-08-2025 [facility] Cardiology - [facility] Subjective Giuseppe Locke is a [...] cm by prior echocardiogram and CT scan ([id number]). He also has aortic aneurysm that is [...] cm]. Ec (more content not included)... Normal [facility] Office Visiton 01-08-2025 Follow-up visit [id number] Cameron Locke 1940 M Date Provider Department Center 01/08/2025 JONI BELLA [facility] Grace Vuong Family History Problem Relation Age of Onset Kidney disease Mother Hyperlipidemia Father Aneurysm Father Coronary artery disease Sister Coronary artery disease Brother Family Status - Relation Status Age at Mother Father Sister Brother Level of Service:51990 [place] OFFICE/OUTPATIENT ESTABLISHED MOD MDM 30 MIN Normal [facility] ALBUMIN, RANDOM URINE W/CREA TININEon 12-05-2024 ALBUMIN, URINE 0.9 mg/dL Normal See Note: [facility] Comment on above: Result Comment: Refe rence Range: Reference Range Not established Performed By: #### 1 759, 496, 5321, 7600, 8617, 92888 #### [facility] [address], [address] [place] [id number] Supervisor Phosphoric Acid: Eugene Chandra MD ALBUMIN/CREATININE RATIO, RANDOM URINE [...] #### 1 759, 496, 5363, 7600, 6517, 48705 #### [facility] [place] [address] Supervisor Phosphoric Acid: Eugene Chandra MD Creatinine (U) [Mass/Vol] 153 mg/dL Normal 20-320 [facility] Comment on above: Performed By: #### 1 759, 496, 5363, 7600, 6517, 11724 #### [facility] [place] [address] Supervisor Phosphoric Acid: Eugene Chandra MD CBC (H/H, RBC, INDICES, WBC, PLT)on 12-05-2024 Erythrocyte distribution width (RBC) [Ratio] 12.1 % Normal 11.0-15.0 [facility] Comment on above: Performed By: #### 1 759, 496, 5363, 7600, 6517, 61930 #### [facility] [place] [address] Supervisor Phosphoric Acid: Eugene Chandra MD Hematocrit (Bld) [Volume fraction] 41.1 % Normal 38.5-50.0 [facility] Comment on above: Performed By: #### 1 759, 496, 5363, 7600, 6517, 74430 #### [facility] [place] [address] Supervisor Phosphoric Acid: Eugene Chandra MD Hemoglobin (Bld) [Mass/Vol] 13.9 g/dL Normal 13.2-17.1 [facility] Comment on above: Performed By: #### 1 759, 496, 5363, 7600, 6517, 01747 #### [facility] [place] [address] Supervisor Phosphoric Acid: Eugene Chandra MD MCH (RBC) [Entitic mass] 32.3 pg Normal 27.0-33.0 [facility] Comment on above: Performed By: #### 1 759, 496, 5363, 7600, 6517, 64408 #### [facility] [place] [address] Supervisor Phosphoric Acid: Eugene Chandra MD MCHC (RBC) [Mass/Vol] 33.8 [...] #### 1 759, 496, 5363, 7600, 6517, 02385 #### [facility] [place] [address] Supervisor Phosphoric Acid: Eugene Chandra MD MCV (RBC) [Entitic vol] 95.4 fL Normal 80.0-100.0 [facility] Comment on above: Performed By: #### 1 759, 496, 5363, 7600, 6517, 06057 #### [facility] [place] [address] Supervisor Phosphoric Acid: Eugene Chandra MD Platelet mean volume (Bld) [Entitic vol] 10.4 fL Normal 7.5-12.5 [facility] Comment on above: Performed By: #### 1 759, 496, 5363, 7600, 6517, 35847 #### [facility] [place] [address] Supervisor Phosphoric Acid: Eugene Chandra MD Platelets (Bld) [#/Vol] 239 10*3/uL Normal 140-400 [facility] Comment on above: Performed By: #### 1 759, 496, 5363, 7600, 6517, 98472 #### [facility] [place] [address] Supervisor Phosphoric Acid: Eugene Chandra MD RBC (Bld) [#/Vol] 4.31 10*6/uL Normal 4.20-5.80 [facility] Comment on above: Performed By: #### 1 759, 496, 5363, 7600, 6517, 17319 #### [facility] [place] [address] Supervisor Phosphoric Acid: Eugene Chandra MD WBC (Bld) [#/Vol] 8.1 10*3/uL Normal 3.8-10.8 [facility] Comment on above: Performed By: #### 1 759, 496, 5363, 7600, 6517, 00310 #### [facility] [place] [address] Supervisor Phosphoric Acid: Eugene Chandra MD [facility] 12-05-2024 Albumin [Mass/Vol] 4.3 g/dL Normal 3.6-5.1 [facility] Comment on above: Performed By: #### 1 759, 496, 5363, 7600, 6517, 03377 #### [facility] [place] [address] Supervisor Phosphoric Acid: Eugene Chandra MD Albumin/Globulin [Mass ratio] 1.8 {ratio} Normal 1.0-2.5 [facility] Comment on above: Performed By: #### 1 759, 496, 5363, 7600, 6517, 03120 #### [facility] [place] [address] Supervisor Phosphoric Acid: Eugene Chandra MD ALP [Catalytic activity/Vol] 51 U/L Normal 35-144 [facility] Comment on above: Performed By: #### 1 759, 496, 5363, 7600, 6517, 84335 #### [facility] [place] [address] Supervisor Phosphoric Acid: Eugene Chandra MD ALT [Catalytic activity/Vol] 23 U/L Normal 9-46 [facility] Comment on above: Performed By: #### 1 759, 496, 5363, 7600, 6517, 61637 #### [facility] [place] [address] Supervisor Phosphoric Acid: Eugene Chandra MD AST [Catalytic activity/Vol] 20 U/L Normal 10-35 [facility] Comment on above: Performed By: #### 1 759, 496, 5363, 7600, 6517, 30403 #### [facility] [place] [address] Supervisor Phosphoric Acid: Eugene Chandra MD Bilirubin [Mass/Vol] 0.6 mg/dL Normal 0.2-1.2 [facility] Comment on above: Performed By: #### 1 759, 496, 5363, 7600, 6517, 25179 #### [facility] [place] [address] Supervisor Phosphoric Acid: Eugene Chandra MD BUN/CREATININE RATIO SEE NOTE: Normal 6-22 [facility] Comment on above: Result Comment: Not Reported: BUN and Creatinine are within reference range. Performed By: #### 1 759, 496, 5363, 7600, 6517, 80667 #### [facility] [place] [address] Supervisor Phosphoric Acid: Eugene Chandra MD Calcium [Mass/Vol] 9.3 mg/dL Normal 8.6-10.3 [facility] Comment on above: Performed By: #### 1 759, 496, 5363, 7600, 6517, 74150 #### [facility] [place] [address] Supervisor Phosphoric Acid: Eugene Chandra MD Chloride [Moles/Vol] 106 mmol/L Normal 98-110 [facility] Comment on above: Performed By: #### 1 759, 496, 5363, 7600, 6517, 60321 #### [facility] [place] [address] Supervisor Phosphoric Acid: Eugene Chandra MD CO2 [Moles/Vol] 27 mmol/L Normal 20-32 [facility] Comment on above: Performed By: #### 1 759, 496, 5363, 7600, 6517, 24728 #### [facility] [place] [address] Supervisor Phosphoric Acid: Eugene Chandra MD Creatinine [Mass/Vol] 0.92 mg/dL Normal 0.70-1.22 [facility] Comment on above: Performed By: #### 1 759, 496, 5363, 7600, 6517, 66923 #### [facility] [place] [address] Supervisor Phosphoric Acid: Eugene Chandra MD GFR/1.73 sq M.predicted among non-blacks MDRD (S/P/Bld) [Vol rate/Area] 83 mL/min/{1.73_m2} Normal > OR = 60 [facility] Comment on above: Performed By: #### 1 759, 496, 5363, 7600, 6517, 84070 #### [facility] [place] [address] Supervisor Phosphoric Acid: Eugene Chandra MD Globulin (S) [Mass/Vol] 2.4 g/dL Normal 1.9-3.7 [facility] Comment on above: Performed By: #### 1 759, 496, 5363, 7600, 6517, 84457 #### [facility] [place] [address] Supervisor Phosphoric Acid: Eugene Chandra MD Glucose [Mass/Vol] 134 mg/dL High 65-99 [facility] Comment on above: Result Comment: Fasting reference interval For someone without known diabetes, a glucose value >125 mg/dL indicates that they may have diabetes and this should be confirmed with a follow-up test. Performed By: #### 1 759, 496, 5363, 7600, 6517, 40450 #### [facility] [place] [address] Supervisor Phosphoric Acid: Eugene Chandra MD Potassium [Moles/Vol] 4.3 mmol/L Normal 3.5-5.3 [facility] Comment on above: Performed By: #### 1 759, 496, 5363, 7600, 6517, 63598 #### [facility] [place] [address] Supervisor Phosphoric Acid: Eugene Chandra MD Protein [Mass/Vol] 6.7 g/dL Normal 6.1-8.1 [facility] Comment on above: Performed By: #### 1 759, 496, 5363, 7600, 6517, 27239 #### [facility] [place] [address] Supervisor Phosphoric Acid: Eugene Chandra MD Sodium [Moles/Vol] 140 mmol/L Normal 135-146 [facility] Comment on above: Performed By: #### 1 759, 496, 5363, 7600, 6517, 46361 #### [facility] [place] [address] Supervisor Phosphoric Acid: Eugene Chandra MD Urea nitrogen [Mass/Vol] 17 mg/dL Normal 7-25 [facility] Comment on above: Performed By: #### 1 759, 496, 5363, 7600, 6517, 69472 #### [facility] [place] [address] Supervisor Phosphoric Acid: Eugene Chandra MD HEMOGLOBIN A1con 12-05-2024 HEMOGLOBIN [...] #### 1 759, 496, 5363, 7600, 6517, 13794 #### [facility] [address], [address] [place] [address] Supervisor Phosphoric Acid: Eugene Chandra MD LIPID PANEL, [facility] 11-10 Cholesterol [Mass/Vol] 201 mg/dL High <200 [facility] Comment on above: Order Comment: FASTI NG:YES FASTING: YES Performed By: #### 1 759, 496, 5363, 7600, 6517, 52102 #### [facility] [address], [address] [place] [address] Supervisor Phosphoric Acid: Eugene Chandra MD Cholesterol in HDL [Mass/Vol] 43 mg/dL Normal > OR = 40 [facility] Comment on above: Order Comment: FASTI NG:YES FASTING: YES Performed By: #### 1 759, 496, 5363, 7600, 6517, 22824 #### [facility] [address], [address] [place] [address] Supervisor Phosphoric Acid: Eugene Chandra MD Cholesterol in LDL [Mass/Vol] [...] LDL-C. Baltazar TORO et al. TUNG. 2013;310(19): 4258-8700 (http://education.Vinspi.Telerivet/faq/DWW649) Performed By: #### 1 759, 496, 5363, 7600, 6517, 56975 #### [facility] [address], [address] [place] [address] Supervisor Phosphoric Acid: Eugene Chandra MD Cholesterol.total/ Cholesterol in HDL [Mass ratio] 4.7 {ratio} Normal <5.0 [facility] Comment on above: Order Comment: FASTI NG:YES FASTING: YES Performed By: #### 1 759, 496, 5363, 7600, 6517, 13505 #### [facility] [address], [address] [place] [address] Supervisor Phosphoric Acid: Eugene Chandra MD NON HDL CHOLESTEROL 158 mg/dL (calc) High <130 [facility] Comment on above: Order Comment: FASTI NG:YES FASTING: YES Result Comment: For patients with diabetes plus 1 major ASCVD risk factor, treating to a non-HDL-C goal of <100 mg/dL (LDL-C of <70 mg/dL) is considered a therapeutic option. Performed By: #### 1 759, 496, 5363, 7600, 6517, 89380 #### [facility] [address], [address] [place] [address] Supervisor Phosphoric Acid: Eugene Chandra MD Triglyceride [Mass/Vol] 128 mg/dL Normal <150 [facility] Comment on above: Order Comment: FASTI NG:YES FASTING: YES Performed By: #### 1 759, 496, 5363, 7600, 6517, 84122 #### [facility] [address], [address] [place] [address] Supervisor Phosphoric Acid: Eugene Chandra MD PSA, TOTALon 12-05-2024 PSA, TOTAL 0.61 ng/mL Normal < OR = 4.00 [facility] Comment on above: Result Comment: The total PSA value from this assay system is standardized against the WHO standard. The test result will be approximately 20% lower when compared to the equimolar-standardized total PSA ([employer]). Comparison of serial PSA results should be interpreted with this fact in mind. This test was performed using the Siemens chemiluminescent method. Values obtained from different assay methods cannot be used interchangeably. PSA levels, regardless of value, should not be interpreted as absolute evidence of the presence or absence of disease. Performed By: #### 1 759, 496, 5363, 7600, 6517, 84772 #### [facility] [address], [address] [place] [address] Supervisor Phosphoric Acid: Eugene Chandra MD Office Visiton 06-19-2024 Follow-up visit [id number] Cameron Locke 1940 M Date Provider Department Center 06/19/2024 MICAH LOWE INEZ Vuong Family History Problem Relation Age of Onset Kidney disease Mother Hyperlipidemia Father Aneurysm Father Coronary artery disease Sister Coronary artery disease Brother Family Status - Relation Status Age at Mother Father Sister Brother Level of Service:64281 [place] OFFICE/OUTPATIENT ESTABLISHED LOW MDM 20 MIN Normal [facility] Messi 02-07-2023 L ---- Specimen: [id number] Received: 02/07/23 Status: JOE Chan Num: [id number] Spec Type: Surgical Subm Dr: Liu Dawkins MD Tissues: A Small Intestine - Biopsy/Polyp (HEPATIC FLEXURE POLYP) Procedures: HE/Melonie Gross/Prasanth L4 Age/ Patient Sex Location Account Attending Physician Giuseppe Locke 82/M [id number] Liu Dawkins MD SPEC NUM: [id number] RECD: 02/07/23 STATUS: JOE CHAN NUM: [id number] DAMION: 02/07/23 DR: Liu Dawkins MD ENTERED: 02/07/[address] [facility] [address]: SPEC TYPE: Surgical DEPT: S ORDERED: HE/2, [...] support the above pathologic diagnosis. CPT Codes 67851 Specimen: [id number] Received: 02/07/23 Status: JOE Chan Num: [id number] Spec Type: Surgical Subm Dr: Liu Dawkins MD Tissues: A Small Intestine - Biopsy/Polyp (HEPATIC FLEXURE POLYP) Procedures: MANNY/Melonie Gross/Micro L4 Patient: Giuseppe Locke [id number] (Continued) Signed (signature on file) Joleen Dorsey MD 02/08/[address] [place] [address] 12-14-2022 L ---- Specimen: [id number] Received: 12/14/22-125 Status: JOE Chan Num: [id number] Spec Type: Surgical Subm Dr: Devonte Lambert DO Tissues: A Small Intestine - Biopsy/Polyp (POLYP HEPATIC FLEXURE) Procedures: MANNY/Melonie Gross/Micro L4 Age/ Patient Sex Location Account Attending Physician Giuseppe Locke/Elidia ID [id number] Devonte Lambert, DO SPEC NUM: [id number] RECD: 12/14/22 STATUS: JOE CHAN NUM: [id number] DAMION: 12/14/22- [facility] DR: Devonte Lambert DO ENTERED: 12/14/22 DR: [facility] SPEC TYPE: Surgical DEPT: S ORDERED: [...] support the above pathologic diagnosis. CPT Codes 57541 Specimen: [id number] Received: 12/14/22 Status: JOE Chan Num: [id number] Spec Type: Surgical Subm Dr: Devonte Lambert DO Tissues: A Small Intestine - Biopsy/Polyp (POLYP HEPATIC FLEXURE) Procedures: HE/2, Gross/Micro L4 Patient: Giuseppe Locke [id number] (Continued) Signed (signature on file) Joaquim Brooks MD 12/19/2221 [facility] ECHOCARDIO M/2D COMPLETEon 0 12-05-2022 ECHOCARDIO M/2D COMPLETE Patient: GIUSEPPE LOCKE Exam Date: 12/05/2022 : 1940 Gender:M Ordering : [facility] Admission #: [id number] Family : Order #: [id number] CLICK HERE TO VIEW EXAM ECHOCARDIOGRAM REPORT [...] M.D. on 12/15/2022 at 09:08 Normal [facility] CBC AUTO DIFFon 11-08-2022 BASO # 0.1 103/ul Normal 0.0-0.1 [facility] Comment on above: Performed By: #### C BC #### [facility] Laboratory [address] [address] [address] Carlton Mendez Basophils/100 WBC (Bld) 0.9 % Normal 0.2-2.0 [facility] Comment on above: Performed By: #### C BC #### [facility] Laboratory [address] [address] [address] Carlton Mendez EO # 0.7 103/ul Normal 0.0-0.7 [facility] Comment on above: Performed By: #### C BC #### [facility] Laboratory [address] [address] [address] Carlton Mendez Eosinophils/100 WBC (Bld) 7.3 % Critically high 0.9-7.0 [facility] Comment on above: Performed By: #### C BC #### [facility] Laboratory [address] [place] [address] Dr. Carlton Mendez Erythrocyte distribution width (RBC) [Ratio] 12.7 % Normal 11.0-15.0 [facility] Comment on above: Performed By: #### C BC #### [facility] Laboratory [address] [place] [address] Dr. Carlton Mendez Hematocrit (Bld) [Volume fraction] 41.2 % Critically low 42.0-54.0 [facility] Comment on above: Performed By: #### C BC #### [facility] Laboratory [address] [place] [address] Dr. Carlton Mendez Hemoglobin (Bld) [Mass/Vol] 13.9 g/dL Critically low 14.0-18.0 [facility] Comment on above: Performed By: #### C BC #### [facility] Laboratory [address] [place] [address] Dr. Carlton Mendez IG # 0.05 10e3/ul Critically high 0.00-0.03 [facility] Comment on above: Performed By: #### C BC #### [facility] Laboratory [address] [place] [address] Dr. Carlton Mendez IG % 0.5 % Normal 0.0-0.5 [facility] Comment on above: Performed By: #### C BC #### [facility] Laboratory [address] [address] [address] Carlton Mendez LYMPH # 4.9 103/ul Critically high 1.2-3.8 [facility] Comment on above: Performed By: #### C BC #### [facility] Laboratory [address] [address] [address] Carlton Mendez Lymphocytes/100 WBC (Bld) 49.8 % Normal 20.5-60.0 [facility] Comment on above: Performed By: #### C BC #### [facility] Laboratory [address] [place] [address] Dr. Carlton Mendez MANUAL DIFF REQ NO Normal [facility] Comment on above: Performed By: #### C BC #### [facility] Laboratory [address] [place] [address] Dr. Carlton Mendez MCH (RBC) [Entitic mass] 31.8 pg Normal 25.9-34.0 [facility] Comment on above: Performed By: #### C BC #### [facility] Laboratory [address] [place] [address] Dr. Carlton Mendez MCHC (RBC) [Mass/Vol] 33.7 g/dL Normal 29.9-35.2 [facility] Comment on above: Performed By: #### C BC #### [facility] Laboratory [address] [place] [address] Dr. Carlton Mendez MCV (RBC) [Entitic vol] 94.3 fL Critically high 80.0-94.0 [facility] Comment on above: Performed By: #### C BC #### [facility] Laboratory [address] [address] [address] Carlton Mendez MONO # 0.9 103/ul Critically high 0.3-0.8 [facility] Comment on above: Performed By: #### C BC #### [facility] Laboratory [address] [place] [address] Dr. Carlton Mendez Monocytes/100 WBC (Bld) 8.8 % Normal 1.7-12.0 [facility] Comment on above: Performed By: #### C BC #### [facility] Laboratory [address] [address] [address] Carlton Mendez NEUT # 3.2 103/ul Normal 1.4-6.5 [facility] Comment on above: Performed By: #### C BC #### [facility] Laboratory [address] [address] [address] Carlton Mendez Neutrophils/100 WBC (Bld) 32.7 % Critically low 43.0-75.0 [facility] Comment on above: Performed By: #### C BC #### [facility] Laboratory [address] [address] [address] Carlton Mendez Platelet mean volume (Bld) [Entitic vol] 9.5 fL Normal 9.5-13.5 [facility] Comment on above: Performed By: #### C BC #### [facility] [address] [place] [address] Dr. Carlton Mendez PLT 233 103/ul Normal 150-450 [facility] Comment on above: Performed By: #### C BC #### [facility] [address] [place] [address] Dr. Carlton Mendez RBC 4.37 106/ul Critically low 4.70-6.10 [facility] Comment on above: Performed By: #### C BC #### [facility] Laboratory [address] [place] [address] Dr. Carlton Mendez WBC 9.9 103/ul Normal 4.0-11.0 [facility] Comment on above: Performed By: #### C BC #### [facility] [address] [place] [address] Dr. Carlton Mendez LIPID PROFILEon 11-08-2022 CHOL-HDL RATIO NORM SEE BELOW Normal [facility] Comment on above: Result Comment: 3.3 - 4.4 LOW RISK 4.4 - 7.1 AVERAGE RISK 7.1 - 11.0 MODERATE RISK >11.0 HIGH RISK Performed By: #### C MP, LIPID #### [facility] [address] [place] [address] Dr. Carlton Mendez Cholesterol [Mass/Vol] 175 mg/dL Normal <=200 [facility] Comment on above: Performed By: #### C MP, LIPID #### [facility] Laboratory [address] [address] [address] Carlton Mendez Cholesterol in HDL [Mass/Vol] 36 mg/dL Critically low 40-60 [facility] Comment on above: Performed By: #### C MP, LIPID #### [facility] [address] [address] [address] Carlton Mendez Cholesterol in LDL [Mass/Vol] 111.8 mg/dL Normal [facility] Comment on above: Performed By: #### C MP, LIPID #### [facility] Laboratory [address] [address] [address] Carlton Mendez Cholesterol.total/ Cholesterol in HDL [Mass ratio] 4.9 {ratio} Normal [facility] Comment on above: Performed By: #### C MP, LIPID #### [facility] [address] [address] [address] Carlton Mendez HDL NORMAL > or = 60 mg/dl - LO W CARDIOVASCULAR RISK <40 mg/dl - HIGH CARDIOVASCULAR RISK Normal [facility] Comment on above: Performed By: #### C MP, LIPID #### [facility] [address] [address] [address] Carlton Mendez LDL CALC NORMAL SEE BELOW Normal [facility] Comment on above: Result Comment: <100 mg/dl OPTIMAL 100 - 129 mg/dl NEAR OR ABOVE OPTIMAL 130 - 159 mg/dl BORDERLINE HIGH 160 - 189 mg/dl HIGH >190 mg/dl VERY HIGH Performed By: #### C MP, LIPID #### [facility] [address] [address] [address] Carlton Mendez Triglyceride [Mass/Vol] 136 mg/dL Normal <=150 [facility] Comment on above: Performed By: #### C MP, LIPID #### [facility] [address] [address] [address] Carlton Mendez VLDL CALC 27.2 mg/dL Normal [facility] Comment on above: Performed By: #### C MP, LIPID #### [facility] [address] [place] [address] Dr. Carlton Mendez PROF 14(COMP METB)on 023 Albumin [Mass/Vol] 3.6 g/dL Normal 3.4-5.0 [facility] Comment on above: Performed By: #### C MP, LIPID #### [facility] [address] [place] [address] Dr. Carlton Mendez Albumin/Globulin [Mass ratio] 0.9 {ratio} Normal [facility] Comment on above: Performed By: #### C MP, LIPID #### [facility] [address] [place] [address] Dr. Carlton Mendez ALP [Catalytic activity/Vol] 59 U/L Normal 46-116 [facility] Comment on above: Performed By: #### C MP, LIPID #### [facility] [address] [place] [address] Dr. Carlton Mendez ALT [Catalytic activity/Vol] 34 U/L Normal 16-63 [facility] Comment on above: Performed By: #### C MP, LIPID #### [facility] [address] [place] [address] Dr. Carlton Mendez Anion gap [Moles/Vol] 11.6 mmol/L Normal [facility] Comment on above: Performed By: #### C MP, LIPID #### [facility] [address] [place] [address] Dr. Carlton Mendez AST [Catalytic activity/Vol] 24 U/L Normal 15-37 [facility] Comment on above: Performed By: #### C MP, LIPID #### [facility] [address] [place] [address] Dr. Carlton Mendez Bilirubin [Mass/Vol] 0.4 mg/dL Normal 0.2-1.0 [facility] Comment on above: Performed By: #### C MP, LIPID #### [facility] [address] [place] [address] Dr. Carlton Mendez Calcium [Mass/Vol] 8.9 mg/dL Normal 8.5-10.1 [facility] Comment on above: Performed By: #### C MP, LIPID #### [facility] [address] [address] [address] Carlton Mendez Chloride [Moles/Vol] 104 mmol/L Normal 98-107 [facility] Comment on above: Performed By: #### C MP, LIPID #### [facility] [address] [address] [address] Carlton Mendez CO2 [Moles/Vol] 29.6 mmol/L Normal 21.0-32.0 [facility] Comment on above: Performed By: #### C MP, LIPID #### [facility] [address] [address] [address] Carlton Mendez Creatinine [Mass/Vol] 0.95 mg/dL Normal 0.70-1.30 [facility] Comment on above: Performed By: #### C MP, LIPID #### [facility] [address] [place] [address] Dr. Carlton Mendez EGFR-AF TANZANIAN >60 Normal >=60 [facility] Comment on above: Performed By: #### C MP, LIPID #### [facility] [address] [place] [address] Dr. Carlton Mendez EGFR-NON AF TANZANIAN >60 Normal >=60 [facility] Comment on above: Performed By: #### C MP, LIPID #### [facility] [address] [place] [address] Dr. Carlton Mendez Globulin (S) [Mass/Vol] 4.0 g/dL Normal [facility] Comment on above: Performed By: #### C MP, LIPID #### [facility] [address] [place] [address] Dr. Carlton Mendez Glucose [Mass/Vol] 146 mg/dL Critically high 74-[address] [facility] Comment on above: Performed By: #### C MP, LIPID #### [facility] [address] [place] [address] Dr. Carlton Mendez Potassium [Moles/Vol] 4.2 mmol/L Normal 3.5-5.1 [facility] Comment on above: Performed By: #### C MP, LIPID #### [facility] [address] [address] [address] Carlton Mendez Protein [Mass/Vol] 7.6 g/dL Normal 6.4-8.2 [facility] Comment on above: Performed By: #### C MP, LIPID #### [facility] [address] [address] [address] Carlton Mendez Sodium [Moles/Vol] 141 mmol/L Normal 136-145 [facility] Comment on above: Performed By: #### C MP, LIPID #### [facility] [address] [address] [address] Carlton Mendez Urea nitrogen [Mass/Vol] 19.0 mg/dL Critically high 7.0-18.0 [facility] Comment on above: Performed By: #### C MP, LIPID #### [facility] [address] [address] [address] Carlton Mendez Urea nitrogen/Creatinin e [Mass ratio] 20.0 mg/mg Normal [facility] Comment on above: Performed By: #### C MP, LIPID #### [facility] [address] [address] [address] Carlton Mendez ECHOCARDIO M/2D COMPLETEon 0 05-18-2022 ECHOCARDIO M/2D COMPLETE Patient: GIUSEPPE LOCKE Exam Date: 05/18/2022 : 1940 Gender:M Ordering : DR JONI ROWLAND M.D. Admission #: [id number] Family : DR GALINDO BENITO M.D. Order #: [id number] CLICK HERE TO VIEW EXAM ECHOCARDIOGRAM REPORT [...] Rowland M.D. on 05/18/2022 at 19:45 Normal [facility] US ABD AORTA DIAGNOSTICon US ABD AORTA [...] by: CHICO GUERRERO Date: 2022-05-18 16:07 Normal [facility] Ambulatory Clinical Summaryo n 08-16-2021 Ambulatory Clinical Summary {[id number] }CD:[id number] Normal [facility] Patient Educationon 08-16-20 21 Patient Education Urology Benign Prostatic Hyperplasia Benign [...] Follow these instructions at home: ? Take adfu-gfi-wcqcalt and prescription medicines only as told by [...] You d (more content not included)... Normal [facility] Urology Office/Clinic Noteon 08-16-2021 Urology Office/Clinic Note [...] Yusuf, URL [address] [place] [address] [place] [address]- [phone] Additional Instructions: prn Patient Education Benign Prostatic [...] Dipstick: Negative (08/16/ (more content not included)... Normal [facility] Comment on above: Result Comment: Elec tronically Signed By: Nathaniel LOVE MD\.br\Date and Time Signed: 08/16/21 12:38 EST\.br\Electronically Co-Signed By: Emily Mariscal MA\.br\Date and Time Co-Signed: 08/16/21 12:36 EST Ambulatory Clinical Summaryo n 08-12-2021 Ambulatory Clinical Summary {[id number] }[id number] [facility] Historical Records Officeon 08-12-2021 Historical Records Office [id number]: 127 [facility] Patient Educationon 08-12-20 Patient Education Infectious Disease Prostatitis Prostatitis is swelling of the prostate gland. The prostate helps to make semen. It is below a man's bladder, in front of the rectum. There are different types of prostatitis. Follow these instructions at home: ? Take jqdc-smc-aupyikr and prescription medicines only as told by [...] 03/26/2013 Document Revised: 09/07/2018 Document Reviewed: 06/15/2017 [employer] Patient Education ? 2019 [employer]. [facility] Urology Office/Clinic Noteon 08-12-2021 Urology Office/Clinic Note Chief Complaint Prostate pain HPI Staff 81 year old male here for prostate pain. 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 Dysuria: no [...] Weight Dosing Office Visit Level 4 Est 01619 2. Family history of prostate cancer (Z80.42: [...] Weight Dosing Office Visit Level 4 Est 67030 3. Glucosuria (R81: Glycosuria) 100mg/dl was found [...] Weight Dosing Office Visit Level 4 Est 06055 4. Perineal pain (R10.2: Pelvic and perineal [...] Weight Dosing Office Visit Level 4 Est 52356 Orders: Urnls Dip Stick Auto w/o Microscopy POC 48002 I have reviewed the previous health record information and history for this patient from Lee MURRAY Jennifer Follow-up With When Contact Information ROSALIND DICKERSON PA-C [address] [facility] [address] Additional Instructions: Patient Education Prostatitis, Aeyv-um-Ojkx I, Ana Ventura, personally scribed for Lee [...] stones Hypertensi (more content not included)... Normal [facility] Comment on above: Result Comment: Elec tronically Signed By: ROSALIND DICKERSON PA-C\.br\Date and Time Signed: 08/12/21 11:58 EDT\.br\Electronically Co-Signed By: Ana Ventura MAbr\Date and Time Co-Signed: 08/12/21 10:15 EDT Vital Signs Date Time Vital Sign Value Performing Clinician Facility 05-14-2025 08:29-0400 Body height 165.1 cm Briana Arleen MANAGER OF SOFTWARE DEVELOPMENT Work Phone: [facility] 05-14-2025 08:29-0400 Body mass index (BMI) [Ratio] 27.96 kg/m2 Briana Arleen MANAGER OF SOFTWARE DEVELOPMENT Work Phone: [facility] 05-14-2025 08:29-0400 Body weight 76.2 kg Briana Brilliant MANAGER OF SOFTWARE DEVELOPMENT Work Phone: [facility] 05-14-2025 08:29-0400 Diastolic blood pressure 78 mm[Hg] Briana Arleen MANAGER OF SOFTWARE DEVELOPMENT Work Phone: [facility] 05-14-2025 08:29-0400 Heart rate 76 /min Briana Brilliant MANAGER OF SOFTWARE DEVELOPMENT Work Phone: [facility] 05-14-2025 08:29-0400 Respiratory rate 16 /min Briana Arleen MANAGER OF SOFTWARE DEVELOPMENT Work Phone: [facility] 05-14-2025 08:29-0400 SaO2% (BldA) [Mass fraction] 96 % Briana Brilliant MANAGER OF SOFTWARE DEVELOPMENT Work Phone: [facility] 05-14-2025 08:29-0400 Systolic blood pressure 122 mm[Hg] Briana Arleen MANAGER OF SOFTWARE DEVELOPMENT Work Phone: [facility] 12-04-2024 09:01-0500 Body height 165.1 cm Briana Brilliant MANAGER OF SOFTWARE DEVELOPMENT Work Phone: [facility] 12-04-2024 09:01-0500 Body mass index (BMI) [Ratio] 28.12 kg/m2 Briana Brilliant MANAGER OF SOFTWARE DEVELOPMENT Work Phone: [facility] 12-04-2024 09:01-0500 Body weight 76.66 kg Briana Brilliant MANAGER OF SOFTWARE DEVELOPMENT Work Phone: [facility] 12-04-2024 09:01-0500 Diastolic blood pressure 76 mm[Hg] Briana Brilliant MANAGER OF SOFTWARE DEVELOPMENT Work Phone: [facility] 12-04-2024 09:01-0500 Heart rate 87 /min Briana Brilliant MANAGER OF SOFTWARE DEVELOPMENT Work Phone: [facility] 12-04-2024 09:01-0500 Respiratory rate 17 /min Briana Bacon MANAGER OF SOFTWARE DEVELOPMENT Work Phone: [facility] 12-04-2024 09:01-0500 SaO2% (BldA) [Mass fraction] 94 % Briana Bacon MANAGER OF SOFTWARE DEVELOPMENT Work Phone: [facility] 12-04-2024 09:01-0500 Systolic blood pressure 124 mm[Hg] Briana Bacon MANAGER OF SOFTWARE DEVELOPMENT Work Phone: [facility] 02-07-2023 10:34-0400 Diastolic blood pressure 88 mm[Hg] PHYSICIAN NO [facility] 02-07-2023 10:34-0400 Heart rate 60 /min PHYSICIAN NO [facility] 02-07-2023 10:34-0400 Respiratory rate 16 /min PHYSICIAN NO [facility] 02-07-2023 10:34-0400 SaO2% (BldA) [Mass fraction] 99 % PHYSICIAN NO [facility] 02-07-2023 10:34-0400 Systolic blood pressure 129 mm[Hg] PHYSICIAN NO [facility] 02-07-2023 09:14-0400 Body height 162.56 cm PHYSICIAN NO [facility] 02-07-2023 09:14-0400 Body temperature 98.3 [degF] PHYSICIAN NO [facility] 02-07-2023 09:14-0400 Body weight 77.11 kg PHYSICIAN NO [facility] Encounters Encounter Date Encounter Type Care Provider Facility Start: 05-14-2025 End: 05-14-2025 Office outpatient visit 15 minutes Briana Bacon MANAGER OF SOFTWARE DEVELOPMENT Work Phone: [facility] Comment on above: Mixed hyperlipidemia ; Pulmonary hypertension, unspecified (HCC) Start: 05-14-2025 End: 05-14-2025 ambulatory BRIANA BACON Not Available Start: 05-08-2025 End: 05-08-2025 ambulatory [facility] Start: 04-30-2025 Evaluation and manag ement of inpatient [facility] Start: 04-29-2025 Evaluation and manag ement of inpatient [facility] Start: 04-29-2025 End: 04-29-2025 ambulatory GEOVANNA RACHEL [facility] Start: 04-29-2025 End: 04-30-2025 Evaluation and management of inpatient [facility] Start: 04-25-2025 End: 04-25-2025 [facility] Result Encounter Generic External Data Provider [facility] External Department Unsolicited Start: 04-25-2025 End: 04-25-2025 [facility] Result Encounter Generic External Data Provider [facility] External Department Unsolicited Start: 04-01-2025 End: 04-01-2025 ambulatory GEOVANNA RACHEL [facility] Start: 03-26-2025 End: 03-26-2025 ambulatory CHAVO CHAVEZ [facility] Start: 03-18-2025 End: 03-18-2025 ambulatory [facility] Start: 03-12-2025 End: 03-12-2025 Clinisync Result Encounter Generic External Data Provider [facility] External Department Unsolicited Start: 03-12-2025 End: 03-12-2025 Clinisync Result Encounter Generic External Data Provider [facility] External Department Unsolicited Start: 02-17-2025 End: 02-17-2025 ambulatory [facility] Start: 01-22-2025 End: 01-22-2025 ambulatory [facility] Start: 01-08-2025 End: 01-08-2025 ambulatory [facility] Start: 12-04-2024 End: 12-04-2024 Bamboo flowsheet Briana Bacon MANAGER OF SOFTWARE DEVELOPMENT Work Phone: [facility] Start: 12-04-2024 End: 12-04-2024 Bamboo flowsheet Briana Bacon MANAGER OF SOFTWARE DEVELOPMENT Work Phone: [facility] Start: 12-04-2024 End: 12-04-2024 Assay of hemosiderin, quant Briana Bacon MANAGER OF SOFTWARE DEVELOPMENT Work Phone: [facility] Start: 12-04-2024 End: 12-04-2024 Patient encounter procedure Briana Bacon MANAGER OF SOFTWARE DEVELOPMENT Work Phone: [facility] Comment on above: Medicare annual well ness visit, subsequent (Primary Dx); Type 2 diabetes mellitus without complications ([facility]/HCC); Thoracic aortic aneurysm without rupture, unspecified part (CMS/HCC); Essential hypertension ([facility]/HCC); Midsystolic murmur; Hyperplasia of prostate without lower urinary tract symptoms (LUTS); Uric acid urolithiasis; Mixed hyperlipidemia (CMS/HCC); Pure hypercholesterolemia ([facility]/HCC); Routine general medical examination at health care facility; Screening for prostate cancer Start: 12-04-2024 End: 12-04-2024 ambulatory BRIANA BACON Not Available Start: 06-19-2024 End: 06-19-2024 ambulatory [facility] Start: 02-07-2023 End: 02-07-2023 ambulatory Imad Asaad Facility:[facility] Start: 02-07-2023 End: 02-07-2023 Admission to same day surgery center PHYSICIAN NO [facility] Work Phone: Start: 02-07-2023 End: 02-07-2023 ambulatory PHYSICIAN ALBA [facility] Work Phone: Start: 12-14-2022 End: 12-14-2022 ambulatory Devonte Itzkowitz Facility:[facility] Start: 12-14-2022 End: 12-14-2022 ambulatory DO Devonte Itzkowitz Work Phone: [facility] Work Phone: Start: 12-14-2022 End: 12-14-2022 Departed Referred DO Devonte Itzkowitz Work Phone: [facility] Main Mobile Work Phone: Start: 12-05-2022 End: 12-06-2022 ambulatory PAT SINCLAIR Facility: Start: 11-15-2022 Encounter for genera l adult medical examination without abnormal findings PAT SINCLAIR [facility] Start: 11-08-2022 End: 11-09-2022 ambulatory PATDEENA SINCLAIR Facility:[facility] Start: 11-08-2022 End: 11-09-2022 Encounter for general adult medical examination without abnormal findings PAT SINCLAIR Facility:[facility] Start: 05-18-2022 End: 05-19-[address] JONI ROWLAND Facility:[facility] Start: 03-13-2018 End: 03-14-2018 Ambulatory DEFAULT PHYSICIAN Facility:[facility] Procedures Date Procedure Procedure Detail Performing Clinician Start: 04-25-2025 ALL CBC WITH AUTO DIFF Generic External Data Provider Start: 03-12-2025 ALL CBC WITH AUTO DIFF Generic External Data Provider Start: 02-07-2023 Colonoscopy PHYSICIAN NO FAMILY Plan of Treatment Date Care Activity Detail Author Start: 12-04-2025 Medicare Annual Wellness (AWV) Medicare Annual Wellness (AWV) [facility] Start: 12-04-2025 Urine screening for protein Diabetes: Urine Protein Screening [facility] Start: 10-13-2025 End: 10-13-2025 Patient encounter procedure 10/13/2025 8:30 AM EST Office Visit [facility] [address] [place] [id number] Galindo Benito MD [address] [facility] [address] [place] [address] [facility] Start: 06-09-2025 Influenza vaccination Influenza Vaccine (#1) [facility] Start: 03-03-2025 Hemoglobin A1c measurement Diabetes: Hemoglobin A1C [facility] Start: 12-04-2024 End: 12-04-2025 CBC panel - Blood by Automated count CBC Lab Routine Essential hypertension ([facility]/HCC) Medicare annual wellness visit, subsequent Expected: 12/04/2024 (Approximate), Expires: 12/04/2025 [facility] Comment on above: Expected: 12/04/2024 (Approximate), Expi res: 12/04/2025 Start: 12-04-2024 End: 12-04-2025 Comprehensive metabolic 2000 panel - Serum or Plasma Comprehensive metabolic panel Lab Routine Type 2 diabetes mellitus without complications (CMS/HCC) Essential hypertension ([facility]/HCC) Medicare annual wellness visit, subsequent Expected: 12/04/2024 (Approximate), Expires: 12/04/2025 [facility] Comment on above: Expected: 12/04/2024 (Approximate), Expi res: 12/04/2025 Start: 12-04-2024 End: 12-04-2025 Hemoglobin A1c/Hemoglobin.total in Blood Hemoglobin A1c Lab Routine Type 2 diabetes mellitus without complications ([facility]/HCC) Expected: 12/04/2024 (Approximate), Expires: 12/04/2025 [facility] Comment on above: Expected: 12/04/2024 (Approximate), Expi res: 12/04/2025 Start: 12-04-2024 End: 12-04-2025 Lipid 1996 panel - Serum or Plasma Lipid panel Lab Routine Mixed hyperlipidemia (CMS/HCC) Pure hypercholesterolemia (CMS/HCC) Expected: 12/04/2024 (Approximate), Expires: 12/04/2025 [facility] Work Phone: Comment on above: Expected: 12/04/2024 (Approximate), Expi res: 12/04/2025 Start: 12-04-2024 End: 12-04-2025 Microalbumin/Creatinin e panel in random Urine Microalbumin / creatinine, urine ratio Lab Routine Type 2 diabetes mellitus without complications ([facility]/HCC) Expected: 12/04/2024 (Approximate), Expires: 12/04/2025 [facility] Comment on above: Expected: 12/04/2024 (Approximate), Expi res: 12/04/2025 Start: 12-04-2024 End: 12-04-2025 Prostate specific Ag [Mass/volume] in Serum or Plasma PSA Lab Routine Screening for prostate cancer Expected: 12/04/2024 (Approximate), Expires: 12/04/2025 [facility] Comment on above: Expected: 12/04/2024 (Approximate), Expi res: 12/04/2025 Start: 12-04-2024 End: 12-04-2024 Patient encounter procedure 12/04/2024 9:00 AM EST Office Visit [facility] [address] [place] [address] Briana Bacon NP [address] [facility] [address] [place] [address] Arrived [facility] Comment on above: Arrived Start: 07-26-2024 Medicare Annual Wellness (AWV) Medicare Annual Wellness (AWV) [facility] Start: 06-09-2024 Influenza vaccination Influenza Vaccine (#1) [facility] Start: 02-07-2023 [facility] Start: 04-20-2022 Hemoglobin A1c measurement Diabetes: Hemoglobin A1C [facility] Start: 11-28-2019 Glaucoma screening Diabetes: Retinopathy Screening [facility] Start: 1960 Urine screening for protein Diabetes: Urine Protein Screening [facility] Patient Education Colon Polyps H emorrhoids (DC) Diverticulosis (DC) [facility] Work Phone: Immunizations Immunization Date Immunization Notes Care Provider Fa cili 07-30-2024 influenza virus vacc ine, unspecified formulation Briana Bacon NP Work Phone: [facility] 07-26-2023 Influenza, High-dose Seasonal, Quadrivalent, Preservative Free Briana Bacon NP Work Phone: [facility] Payers Date Payer Category Payer Self-pay [id number] 2021 Medicaid [employer] MEDICARE A DVANTAGE [id number] 1959 Medicare [id number] 1940 Unknown [id number] 1940 Unknown [id number] 1940 Unknown [id number] 1940 Unknown [id number] 1940 Unknown [id number] Private Health Insurance [employer] Mcr PFFS N on Pt [id number] Unknown Unknown [id number] Unknown [id number] Social History Date Type Detail Facility Tobacco smoking stat us WIIS Unknown if ever smoked [facility] Work Phone: Start: 1940 Sex Assigned At Male F [facility] Start: 02-07-2023 End: 07-26-2023 Tobacco smoking status NHIS Never smoked tobacco (finding) [facility] Start: 07-26-2023 Tobacco use and exposure Smokeless tobacco non-user [facility] Start: 07-26-2023 End: 05-14-2025 Alcoholic beverage intake Lifetime non-drinker (finding) [facility] Start: 07-26-2023 End: 05-14-2025 History of Social function [facility] Start: 07-26-2023 End: 05-14-2025 Tobacco use panel [facility] Start: 1940 Sex assigned at Not on file [facility] Healthcare Goals Date Patient Goal Desired Activity /State Functional Status Date Assessment Result Facility 05-14-2025 Patient Health Quest ionnaire 2 item (PHQ-2) [Reported] [facility] Clinical Notes 02-07-2023 to 05-14-2025 Briana Bacon, DESMOND - 05/14/2025 8:30 AM David Bacon, MANAGER OF SOFTWARE DEVELOPMENT - 12/04/2024 9:00 AM EST Note Date & Type Note Facility 05-14-2025 History of Present illness Narrative Images from the original note were not included. Subjective Patient ID: Giuseppe Locke is a 84 y.o. male who presents for No chief complaint on file.. Giuseppe presents today for a hospital follow up form having a transaortic value replacement 2 weeks ago. He states he is feeling well and will start cardiac rehab in 2-3 weeks Over the past 2 weeks, how often have you been bothered by any of the following problems? Little interest or pleasure in doing things: Not at all Feeling down, depressed, or hopeless: Not at all Patient Health Questionnaire-2 Score: 0 Current Outpatient Medications on File Prior to Visit Medication Sig Dispense Refill aspirin 81 MG EC tablet Take 1 tablet (81 mg) by mouth Daily atorvastatin (Lipitor) 20 MG tablet Take 1 tablet (20 mg) by mouth Daily 30 tablet 5 Glucosamine 500 MG capsule 1 (one) time each day at the same time. lisinopril 5 MG tablet Take 5 mg by mouth. No current facility-administered medications on file prior to visit. I have reviewed and reconciled the history and medication list with the patient today. No Known Allergies Social History Tobacco Use Smoking status: Never Smokeless tobacco: Never Vaping Use Vaping status: Never Used Substance Use Topics Alcohol use: Never Drug use: Never Family History Problem Relation Name Age of Onset Kidney disease Mother Hyperlipidemia Father Heart disease Sibling Ovarian cancer Neg Hx Breast cancer Neg Hx Past Medical History: Diagnosis Date Arthritis Benign prostatic hyperplasia, without lower urinary tract symptoms unspecified Cataracts, bilateral Chickenpox Diabetes mellitus (HCC) Grade 2/6 soft midsystolic murmur at apex radiates to axilla Hyperlipidemia, unspecified hyperlipidemia type Measles Mumps Personal history of colonic polyps Prostate disease Thoracic aortic aneurysm Uric acid nephrolithiasis Past Surgical History: Procedure Laterality Date COLONOSCOPY 2006 normal COLONOSCOPY 12/14/2022 COLONOSCOPY 02/07/2023 CT ANGIOGRAM ABDOMEN PELVIS 01/22/2025 CT ANGIOGRAM ABDOMEN PELVIS 01/22/2025 CT ANGIOGRAM HEART CORONARY 01/22/2025 CT ANGIOGRAM TAVR 01/22/2025 PROSTATE BIOPSY UMBILICAL HERNIA REPAIR Visit Vitals Smoking Status Never Review of Systems Constitutional: Negative. HENT: Negative. Eyes: Negative. Respiratory: Negative. Cardiovascular: Negative. Gastrointestinal: Negative. Genitourinary: Negative. Musculoskeletal: Negative. Skin: Negative. Neurological: Negative. Psychiatric/Behavioral: Negative. Objective Physical Exam Vitals reviewed. Constitutional: Appearance: Normal appearance. HENT: Head: Normocephalic. Nose: Nose normal. Mouth/Throat: Mouth: Mucous membranes are moist. Pharynx: Oropharynx is clear. Eyes: Conjunctiva/sclera: Conjunctivae normal. Cardiovascular: Rate and Rhythm: Normal rate. Heart sounds: Murmur heard. Abdominal: General: Bowel sounds are normal. Palpations: Abdomen is soft. Musculoskeletal: General: Normal range of motion. Skin: General: Skin is warm and dry. Neurological: General: No focal deficit present. Mental Status: He is alert and oriented to person, place, and time. Psychiatric: Mood and Affect: Mood normal. Behavior: Behavior normal. Thought Content: Thought content normal. Judgment: Judgment normal. Assessment/Plan Diagnoses and all orders for this visit: Mixed hyperlipidemia This is a chronic medical condition that is stable since last assessment. No changes in treatment are suggested at this time. Pulmonary hypertension, unspecified (HCC) Patient's blood pressure is currently well controlled. Continue with current medications and I will continue to monitor. Goal BP remains less than 130/80. H/O aortic valve replacement Stable at this time. He is to have cardiac rehab in 2-3 weeks. Follows up with cardiology regularly. No follow-ups on file. documented in this encounter [facility] 05-08-2025 Note Patient here for 1 [place] follow up s/p TAVR performed on 04/29/[address] Rowland. Says he's scheduled soon for 1 month s/p TAVR echo and then he will follow up with Dr. Rowland. He's doing very well. Denies chest pain, SOB, and palpitations. Review of Systems Constitutional: Negative. All other systems reviewed and are negative. [facility] 05-08-2025 Note [place] Cardiology - [facility] Subjective Giuseppe Locke is a 84 y.o. year old male patient being seen for follow up after his recent TAVR. Patient Active Problem List Diagnosis Ascending aortic [...] of left leg without foot Contact dermatitis Aortic stenosis with bicuspid valve Family History Problem Relation Name Age of [...] cm by prior echocardiogram and CT scan ([id number]). He also has aortic aneurysm that is [...] does have lightheadedness with standing and exertion. Update 05/08/2025 Since last seen he has undergone his TAVR procedure. He states he is feeling well. He is starting to get some more energy. He is inquiring about starting cardiac rehab. Denies c/o CP, dyspnea, orthopnea, PND, LE edema, palpitations, syncope. Review of Systems Constitutional: Negative. Neurological: Positive for light-headedness. Objective Visit Vitals BP 118/82 (BP Location: Right arm, Patient Position: Sitting) Pulse 73 Ht 1.6 m (5' 3 ) Wt 75.8 kg (167 lb) SpO2 98% BMI 29.58 kg/m??? Smoking Status Never BSA 1.84 m??? Physical Exam Constitutional: Appearance: Normal appearance. He is normal weight. HENT: Head: Normocephalic and atraumatic. Right Ear: External ear normal. Left Ear: External ear normal. Eyes: Extraocular Movements: Extraocular movements intact. Pupils: Pupils are equal, round, and reactive to light. Neck: Vascular: No carotid bruit. Cardiovascular: Rate and Rhythm: Normal rate and regular rhythm. Pulses: Normal pulses. Heart sounds: Murmur heard. Pulmonary: Effort: Pulmonary effort is normal. Breath sounds: Normal breath sounds. Abdominal: General: Bowel sounds are normal. Palpations: Abdomen is soft. Musculoskeletal: General: Normal range of motion. Cervical back: Neck supple. Right lower leg: No edema. Left lower leg: No edema. Skin: General: Skin is warm and dry. Comments: Bilateral groin access sites healing well, both with mild ecchymosis, no bruit or tenderness. Right side is quarter size soft hematoma. Neurological: General: No focal deficit present. Mental Status: He is alert and oriented to person, place, and time. Psychiatric: Mood and Affect: Mood normal. Behavior: Behavior normal. Thought Content: Thought content normal. Judgment: Judgment normal. Allergies No Known Allergies Medications Current Outpatient Medications: aspirin 81 mg chewable tablet, Chew 1 tablet (81 mg) with breakfast., Disp: 30 tablet, Rfl: 11 atorvastatin (Lipitor) 20 mg tablet, Take 1 tablet (20 mg) by mouth in the morning., Disp: 90 tablet, Rfl: 3 lisinopril 5 mg tablet, Take 1 tablet (5 mg) by mouth in the morning., Disp: 90 tablet, Rfl: 3 amoxicillin (Amoxil) 500 mg capsule, Take 4 caps (2000 mg) 1 hour prior to procedure or dental work., Disp: 12 capsule, Rfl: 11 Recent Labs 04/30/25 Cr 0.77, BUN 15, K 4, Na 136, eGFR 88 Hgb 12.5, plt 195 No results found for: CHOL , HDL , TRIG , LDL Blood testing 12/04/2024: Cholesterol 201, HDL 43, LDL 134, triglycerides 128, BUN 17, creatinine 0.92, EGFR 83, potassium 4.3, LFTs normal. Hemoglobin 13.9, platelets 239. Hemoglobin A1c 6.7%. Serum creatinine 01/22/2025: 0.87, EGFR 85.6. Imaging and other tests Limited ECHO 04/30/25 Left Ventricle: The left ventricle is small in size. Global left ventricular systolic function is normal. EF range is estimated at 65 % -70 %. Right Ventricle: Normal right ventricular systolic function. Doppler stud (more content not included)... [facility] 04-30-2025 Note Patient provided dis charge instructions and copy of AVS. All questions and concerns addressed. Patient and family verbalized understanding. All belongings with patient. Patient discharged via wheelchair to private vehicle. [facility] 04-30-2025 Note Cardiothoracic Surge ry Progress Note 04/30/2025 Room: [address] [place] [address] Subjective Giuseppe Locke is a 84 y.o. male with severe symptomatic stage D1 non-rheumatic aortic valve stenosis. 04/30/2025 s/p Successful transcatheter aortic valve replacement using a 29 mm [place]as CORBIN 3 Ultra RESILIA valve deployed at nominal volume +1 ml via percutaneous transfemoral access. Interval: Patient returned to room from echocardiogram. Pain well controlled. No issues with access site. Hemodynamically stable per ECG monitor. Denies chest pain or SOB. Objective Patient Vitals for the past 24 hrs: BP Temp Temp src Pulse Resp SpO2 Height Weight 04/30/25 0751 134/85 36.2 ???C (97.2 ???F) Temporal 105 18 94 % -- -- 04/30/25 0619 -- -- -- -- -- -- -- 74 kg (163 lb 3.2 oz) 04/30/25 0400 (!) 131/101 37 ???C (98.6 ???F) Temporal 79 -- 94 % -- -- 04/30/25 0300 131/71 -- -- 83 -- 93 % -- -- 04/30/25 0100 129/78 -- -- 63 -- 95 % -- -- 04/30/25 0000 128/73 37 ???C (98.6 ???F) Temporal 71 -- 95 % -- -- 04/29/25 2300 120/77 -- -- 78 -- 93 % -- -- 04/29/25 2200 140/70 -- -- 81 -- 92 % -- -- 04/29/25 2100 125/71 -- -- 74 -- 91 % -- -- 04/29/251999 (!) 136/92 36.5 ???C (97.7 ???F) Temporal 77 -- 96 % -- -- 04/29/25 1900 117/78 -- -- 61 16 97 % -- -- 04/29/25 1800 121/73 -- -- 56 12 -- -- -- 04/29/25 1737 120/78 -- -- 53 12 -- -- -- 04/29/25 1707 132/81 -- -- 54 11 -- -- -- 04/29/25 1652 137/80 -- -- -- 16 -- -- -- 04/29/25 1642 -- -- -- -- -- -- 1.6 m (5' 3 ) -- 04/29/25 1637 140/90 -- -- 59 12 -- -- -- 04/29/25 1622 138/85 36.7 ???C (98.1 ???F) Oral 52 20 -- -- -- 04/29/25 1538 138/82 -- -- 53 16 98 % -- -- 04/29/25 1353 -- -- -- -- -- 100 % -- -- 04/29/25 1353 140/79 -- -- 58 16 96 % -- -- 04/29/25 0848 169/77 -- -- 99 16 99 % 1.6 m (5' 3 ) 77.1 kg (170 lb) Physical Exam Vitals reviewed. Constitutional: General: He is not in acute distress. Appearance: Normal appearance. He is normal weight. He is not ill-appearing. HENT: Head: Normocephalic and atraumatic. Mouth/Throat: Mouth: Mucous membranes are moist. Pharynx: Oropharynx is clear. Eyes: Extraocular Movements: Extraocular movements intact. Conjunctiva/sclera: Conjunctivae normal. Pupils: Pupils are equal, round, and reactive to light. Neck: Vascular: No carotid bruit. Comments: Right internal jugular TAVR access site, band aid in place. No Drainage. No hematoma. Cardiovascular: Rate and Rhythm: Normal rate and regular rhythm. Pulses: Normal pulses. Heart sounds: Normal heart sounds. No murmur heard. Comments: Right femoral TAVR access site, dressing in place. No Drainage. No hematoma. Left femoral TAVR access site, dressing in place. No Drainage. No hematoma. Pulmonary: Effort: Pulmonary effort is normal. No [...] Capillary refill takes less than 2 seconds. Coloration: Skin is not pale. Neurological: General: No focal deficit present. Mental Status: He is alert and oriented to person, place, and time. Mental status is at baseline. Psychiatric: Mood and Affect: Mood normal. Behavior: Behavior normal. Thought Content: Thought content normal. Judgment: Judgment normal. Lab Results Component Value Date NA 136 04/30/2025 K 4.0 04/30/2025 CL 105 04/30/2025 ANIONGAP 10 04/30/2025 BUN 15 04/30/2025 CREATININE 0.77 04/30/2025 CALCIUM 8.8 04/30/2025 No results found for: BILITOT , BILIDIR , ALKPHOS , AST , ALT , PROT , ALBUMIN Lab Results Component Value Date WBC 12.14 (H) 04/30/2025 RBC 3.83 (L) 04/30/2025 HGB 12.5 (L) 04/30/2025 HCT 36.1 (L) 04/30/2025 PLT 195 04/30/2025 Transthoracic echo (TTE) limited Result Date: 04/29/2025 1 1 [facility] Heart Station [address] [id number] [phone] (fax) Echocardiogram-[facility] Name: GIUSEPPE LOCKE Study Date: 04/29/2025 09:48 AM B/P: / HR: Date of : 1940 Location: [facility] Height: 65 in. Age: 84 year(s) Patient Room: Weight: 169 lb. Gender: Male Patient Status: OutPt BSA: 1.84 m2 Indication: TAVR procedure, Aortic Valve Stenosis Examination: Limited Echo/Limited Doppler, Color flow imaging Image Quality: Technically Difficult study Patient Consent: Procedure explained to patient Conclusions Left Ventricle: The left ventricle is normal size. Global left ventricular systolic function is normal. The EF is 60 % visually. Left ventricular wall thickness is increased. No regional wall motion abnormality. Right Ventricle: Right ventricular systolic function appears normal. Left Atrium: The left atrium (more content not included)... [facility] 04-29-2025 Note Patient: Giuseppe rogers Procedure Information Date/Time: 04/29/25 1000 Procedure: TAVR Location: [facility] BLOCK SAW OPERATOR 3 / [facility] (Cath) Providers: Joni Rowland MD Clinical information reviewed: Allergies Meds Physical Exam Airway Mallampati: II TM distance: >3 FB Neck ROM: full Cardiovascular Rhythm: regular Rate: normal Dental Pulmonary Breath sounds clear to auscultation Neurological Abdominal Anesthesia Plan ASA 3 other (Conscious sedation.) Anesthetic plan and risks discussed with patient. Use of blood products discussed with patient who consented to blood products. Additional Equipment Requests [facility] 04-01-2025 Note Treatment plan 04/01/2025 Giuseppe Locke [...] the patient is considering proceeding with TAVR/MitraClip. [id number] workup is in progress. Chavo Chavez MD Cardiac Surgery [facility] 04-01-2025 Note Cardiothoracic Surge ry Outpatient Consultation Note 04/02/2025 Reason For Visit Chief Complaint Patient presents with New Patient Referring Provider: Geovanna Ramos CNP History Of Present Illness Giuseppe Locke is a 84 y.o. male with PMH of hypertension, ascending aortic aneurysm measuring around 4.3 cm by prior echocardiogram and CT scan ([id number]), Bicuspid aortic valve with progression of severe [...] and Other Diagnostic Testing. Findings discussed with director of online merchandising and patient. Explained current disease process and [...] %, WBC Count: 8.1 10???/?L, Platelet Count: 153740 cells/?L, Total Albumin: 4.1 g/dL, Total Bilirubin: [...] Skin: General: Skin (more content not included)... [facility] 04-01-2025 Note Cardiothoracic Surge ry Outpatient Consultation Note 04/02/2025 Reason For Visit Chief Complaint Patient presents with New Patient Referring Provider: Geovanna Ramos CNP History Of Present Illness Giuseppe Locke is a 84 y.o. male with PMH of hypertension, ascending aortic aneurysm measuring around 4.3 cm by prior echocardiogram and CT scan ([id number]), Bicuspid aortic valve with progression of severe [...] and Other Diagnostic Testing. Findings discussed with director of online merchandising and patient. Explained current disease process and [...] %, WBC Count: 8.1 10???/?L, Platelet Count: 534598 cells/?L, Total Albumin: 4.1 g/dL, Total Bilirubin: [...] Skin: General: Skin (more content not included)... [facility] 03-28-2025 Note Patient called the o ffice stating his insurance company called him and told him his upcoming procedure was denied. I see he is scheduled for carotid duplex at [facility] on 04/01/2025. I called [facility] US dept and they said per the pre-cert dept, this does not require prior authorization . I called patient back and made him aware. He verbalized understanding and thanked me. [facility] 03-26-2025 Note Please call pt osielcruz yves his upcoming procedure. [facility] 03-18-2025 Note Patient: Giuseppe Corley Ez rogers Procedure Information Date/Time: 03/18/25 1100 Procedures: Coronary angiography - PC Approved Left heart cath Right heart cath Location: [facility] BLOCK SAW OPERATOR 3 / [facility] HV VASCULAR LAB (Cath) Providers: Joni Rowland MD Clinical information reviewed: Allergies Meds Physical Exam Airway Mallampati: II TM distance: <3 FB Cardiovascular Rhythm: regular Rate: normal Dental Pulmonary Abdominal Anesthesia Plan ASA 3 other (Conscious ) Anesthetic plan and risks discussed with patient. Use of blood products discussed with patient who consented to blood products. Plan discussed with attending. Additional Equipment Requests [facility] 02-17-2025 Note [place] Cardiology [facility] Subjective Giuseppe Locke is a [...] cm by prior echocardiogram and CT scan ([id number]). He also has aortic aneurysm that is [...] Measurements AV V (more content not included)... [facility] 01-22-2025 Note Patient: Giuseppe rogers Procedure Information Date/Time: 01/22/25 1030 Procedure: TRANSESOPHAGEAL ECHO (DADA) Location: [facility] Vascular Lab Clinical information reviewed: Allergies Meds Physical Exam Airway Mallampati: III Cardiovascular Dental Pulmonary Abdominal Anesthesia Plan ASA 3 other (Conscious sedation) intravenous induction Anesthetic plan and risks discussed with patient. Use of blood products discussed with patient who consented to blood products. Plan discussed with attending and fellow. Additional Equipment Requests [facility] 01-08-2025 Note [place] Cardiology - [facility] Subjective Giuseppe Locke is a [...] cm by prior echocardiogram and CT scan ([id number]). He also has aortic aneurysm that is [...] [3.8 cm]. Ec (more content not included)... [facility] 12-04-2024 History of Present illness Narrative [...] Yes Cognitive Screening Three Word Registration: Banana, [place], Chair Clock Drawing: Normal Clock - 2 Three Word Recall: All 3 words correct - 3 Total Score (0-5 Points): 5 Pain Assessment Pain Score: 0 - No pain Advance Care Planning Do you have a living will?: Yes Do you have a medical power of tax attorney?: Yes Objective : BP 124/76 Pulse [...] 1. Type 2 diabetes mellitus without complications (CMS/[facility]) - Comprehensive metabolic panel; Future - Hemoglobin [...] Thoracic aortic aneurysm without rupture, unspecified part ([facility]) This is a chronic medical condition that is stable since last assessment. No changes in treatment are suggested at this time. Follows up with vascular/cardiology. 3. Essential hypertension ([facility]) Patient's blood pressure is currently well controlled. [...] stones as this time. 7. Mixed hyperlipidemia ([facility]) Stressed the importance of limiting processed foods and decreasing fat. - Lipid panel; Future - Lipid panel 8. Pure hypercholesterolemia ([facility]) Stressed the importance of limiting processed food [...] CBC 10. Routine general medical examination at health care facility Wellness form reviewed in detail [...] December 04, 2024 documented in this encounter [facility] 06-19-2024 Note Hypertension is well controlled, renal function stable and continue lisinopril. Lightheadedness/dizziness resolved after reducing dose at last visit. [facility] 06-19-2024 Note Thoracic aneurysm re deena stable without significant widening since last TTE- HTN well controlled Continue lisinopril. -In [address] 4[address] ; [address] 4[address]3 -05/2020: ECHO ascending 4.04, root 4.37cm; CT: 4.1cm -ECHO 05/2022: AoRoot 4.65cm, AsAo 4.0cm - [facility] 06-19-2024 Note Current echo reviewe d with and noted aortic stenosis has went from mild to moderate- he remains asymptomatic. D/W pt to call office for chest pain, SOB, palpitations, lightheadedness/dizziness or syncope and he voiced understanding. [facility] 06-19-2024 Note Pt here for a one ye ar follow up with echo. Pt denies chest pain, palpatations, sob. Review of Systems All other systems reviewed and are negative. [facility] 06-19-2024 Note [facility] CARDIOLOGY PROGR ESS [...] side. Heart sounds: Systolic murmur RUSB and [place] 3/6 with radiation to carotid, S1 normal [...] reducing dose at last visit. RTC 6months [facility] 02-07-2023 Procedure note [facility] Evaluation note No assessment information availa [facility] Work Phone: Evaluation note Diagnosis Medicare [...] of prostate [facility] Diagnosis Mixed hyperlipidemia Mixed hyperlipidemia Pulmonary hypertension, unspecified (HCC) [facility] this [facility] Author Liu Dawkins [facility] February 07, 2023 9:21am Note Date/Time February 07, 2023 9:21am [facility] [address] [place] [address] Gastroenterology H&P Signed Patient: Giuseppe Locke MR#: [id number] : 1940 Acct:[id number] Age/Sex: 82 / M Adm Date: 3 Loc: Room: Type: [facility] Attending Dr: Liu Dawkins MD Copies to: [...] Dawkins M.D. Documented By: Liu Dawkins MD 02/07/23 0919 Signed By: <Electronically signed by Liu Dawkins MD> 02/07/23920 [facility] Work Phone: Hospital Discharge instructions Additional [...] years -Follow up with PCP. -Office number [phone]. [facility] Work Phone: Summary Purpose Family History [...] section and content) DATE CREATED AUTHOR 03/27/2018 [facility] DATE CREATED AUTHOR AUTHOR'S ORGANIZ ATION 08/17/2021 [facility] DATE CREATED AUTHOR AUTHOR'S ORGANIZ ATION 12/16/2022 [facility] DATE CREATED AUTHOR AUTHOR'S ORGANIZ ATION 02/15/2023 [facility] DATE CREATED AUTHOR AUTHOR'S ORGANIZ ATION 12/07/2024 [facility] DATE CREATED AUTHOR AUTHOR'S ORGANIZ ATION 05/10/2025 [facility] DATE CREATED AUTHOR AUTHOR'S ORGANIZ ATION 05/16/2025 [facility] EPIC Care Teams (unrecognized sec tion and content) [...] Benito II MD Primary Care Provider Active Wine Sales Representative Relationship Specialty Start Date End Date Galindo Benito MD [address] [facility] [address] [place] [address] PCP - General Internal Medicine 02/14/23 Monie Prado MD [address] [facility] [address] [place] [address] PCP - [employer] 10/09/21 Wine Sales Representative Relationship Specialty Start Date End Date Galindo Benito MD [address] [facility] [address] [place] [address] PCP - General Internal Medicine 02/14/23 Monie Prado MD [address] [facility] [address] [place] [address] PCP - [employer] 10/09/21 Wine Sales Representative Relationship Specialty Start Date End Date Galindo Benito MD [address] [facility] [address] [place] [address] PCP - General Internal Medicine 02/14/23 Monie Prado MD [address] [facility] [address] [place] [address] PCP - [employer] 10/09/21 Wine Sales Representative Relationship Specialty Start Date End Date Galindo Benito MD [address] [facility] [address] [place] [address] PCP - General Internal Medicine 02/14/23 Monie Prado MD [address] [facility] [address] [place] [address] PCP - [employer] 10/09/21 Goals (unrecognized section and content) Goals [...] BE BASED ON THE PRIMARY CLINICAL RECORDS. [employer] [facility]. provides no warranty or guarantee of the accuracy or completeness of information in this document.
== END 2025-05-23 08:08 | disposition home or self-care (01) ==
LOC: CARD 08:07
PROVIDERS: PCP Internal Medicine
DX: I35.0 Nonrheumatic aortic (valve) stenosis (principal)
CPT/HCPCS: 93306